=== PATIENT | female | born 1950 | race Caucasian/White ===

== ENCOUNTER → 2016-09-14 | Outpatient (CLI) | payer OTHER, MEDICAID ==
[~2016-09-14] MED LIST: /ACETCOD3T OR; /ADVA50050 INH; /TIOT18INH INH; ACET65TA PO; ADVAIR200 INHALATION; ALBU83IN INH; ALBUTEROL NEB; ALPRAZOLAM PO; AMIT10TA2 PO; AMIT50TA PO; AMIT50TA2 PO; AMITRIP50 PO; AMOXIL PO; ASP81 PO; ASPI81TA7 PO; ASPI81TA83 PO; ATIVAN PO; BACTRIMDS PO; BACTROCREA TOPICALLY; BISO2.5T PO; BISOPROLOL/HCTZ PO; CALCCHW12 PO; CELE-19 PO; CIPR500T4 OR; CLAR5CHW OR; CLAR5CHW PO; CLARITAN PO; COLA100C2 OR; DARVOCET-N PO; EQUATE; HCTZ PO; IBUP800T OR; IMDUR30 PO; ISOS30BRAN; K DUR PO; LEVA500T PO; LEVA750T; MAAL600C PO; MIRALAX PO; NITROSTAT SL; NYSTAT100 PO; OMEP20CA3 PO; PATA0.2S OU; PRED10TA PO; PRED20TAB PO; PROA1AER IN; PROM125TA PO; PROV90AE INH; RHINOCORT AQUA; RIFAMPIN3 PO; ROBA500T PO; SPIR1CAP INH; SYMB16INH INH; VERA27.5; VITACAP31 PO; XANA0.25 PO; XANA0.5T PO; XANAX0.25 PO; ZEBETA PO; [UNRECOGNIZED DRUG - CODE] PO; [UNRECOGNIZED DRUG - OTHER] INHALATION
== END ==
LOC: M SLEEP 19:35
PROVIDERS: ATTEND Nurse Practitioner Adult Health
DX: G47.30 Sleep apnea, unspecified (principal)

== ENCOUNTER → 2016-11-05 | Outpatient (CLI) | payer OTHER, MEDICAID ==
--- NOTE | 2016-11-08 10:38 | SLEEPCENT ---
DATE OF PROCEDURE: 11/05/2016 REQUESTING PROVIDER: Shakira Holcomb NP INTERPRETATION: Nocturnal polysomnography was performed for the titration of pressure therapy in this patient with obstructive sleep apnea syndrome, apnea-hypopnea index of 12.3. For testing, the patient was fit with a ResMed Quattro full face mask of small size, 4 cm of water pressure were applied to the circuit and the lights were extinguished. 7 hours and 58 minutes of data were reviewed. There were 396 minutes of sleep identified. Sleep latency was mildly prolonged at 34 minutes. Rapid eye movement (REM) latency was normal at 76 minutes. Sleep architecture was fairly good with three REM periods appreciated. Overall sleep efficiency was 84%. The patient's electrocardiogram (EKG) showed a sinus rhythm with an average heart rate of 68 beats per minute. Electroencephalogram (EEG) showed mild coarsening in background, otherwise normal waveforms for awake and sleep. Persistence of respiratory events were found fully palliated with a CPAP to a pressure of +9. Hypoventilatory oxygen desaturations occurred, prompting the addition of supplemental oxygen. Best sleep was seen on CPAP of 9 cm with 2 liters of oxygen bled through the system. The remaining measures of sleep physiology were normal. IMPRESSION: 1. Obstructive sleep apnea syndrome (G47.33). RECOMMENDATIONS: Nightly use of pressure therapy at 9 cm of water with 2 liters of oxygen bled through the CPAP circuit.
== END ==
LOC: M SLEEP 19:06
PROVIDERS: ATTEND Nurse Practitioner Adult Health
DX: G47.33 Obstructive sleep apnea (adult) (pediatric) (principal)

== ENCOUNTER 2017-03-10 18:36 | Emergency (ER) | payer OTHER, MEDICAID ==
[~2017-03-10] VITALS: Ht 160 cm; Wt 104.0 kg
[~2017-03-10 18:36] MED LIST changes: +ASPI1TAB15 PO; -ASPI81TA7 PO; -CELE-19 PO; +CELE1CAP4 PO; +LEVA1TAB2 PO; -LEVA500T PO; -PROA1AER IN; +PROAAER10 IN; +PROM12.55 PO; -PROM125TA PO
[2017-03-10 18:37] VITALS: BP 155/77
[2017-03-10] MEDS ORDERED: PRED20TA PO (18:47)
[2017-03-10] MEDS ORDERED: AUGM875T28 PO (18:47)
[2017-03-10] MEDS ORDERED: INCR1INH INH (18:51)
[2017-03-10] MEDS ORDERED: FURO20TA2 PO (18:51)
[2017-03-10] MEDS ORDERED: MONT10TA2 PO (18:51)
== END 2017-03-10 20:44 | disposition left against medical advice (07) ==
LOC: M ED 18:36
DX: R05 Cough (principal); Z53.21 Procedure and treatment not carried out due to patient leaving prior to being seen by health care provider

== ENCOUNTER → 2017-04-08 | Outpatient (REF) | payer OTHER, MEDICAID ==
[~2017-04-08] MED LIST changes: +AUGM875T28 PO; +CALC1CHW PO; +FLUTISP; +FURO20TA2 PO; +INCR1INH INH; +LEVOTAB10 PO; +METH1TAB40 PO; +MIRA33504 PO; +MONT10TA2 PO; +PRED10TA2 PO; +PRED20TA PO; +STOO100C PO; +SYMB16INH
[2017-04-08 08:53] LABS: BASO % 0.3 % (0.0-1.0); EOS % 0.2 % (0.0-3.0); LARGE UNSTAINED CELL # 0.1 K/mm3 (0.0-0.4); LARGE UNSTAINED CELL % 0.9 % (0.0-4.0); LYMPH # 1.1 K/mm3 (1.5-4.5); LYMPH % 10.6 % (24.0-44.0); MEAN CORPUSCULAR HEMOGLOBIN 29.4 pg (27.0-33.0); MEAN CORPUSCULAR HGB CONC 33.8 g/dl (32.0-36.5); MONO # 0.4 K/mm3 (0.0-0.8); MONO % 3.3 % (0.0-5.0); NEUTROPHILS # 8.9 K/mm3 (1.8-7.7); NEUTROPHILS % 84.7 % (36.0-66.0); PLATELET COUNT, AUTOMATED 255 k/mm3 (150-450); RED CELL DISTRIBUTION WIDTH 13.5 % (11.5-14.5); WHITE BLOOD COUNT 10.5 K/mm3 (4.0-10.0)
[2017-04-08 09:11] LABS: ANION GAP 11 MEQ/L (8-16); BLOOD UREA NITROGEN 11 MG/DL (7-18); CARBON DIOXIDE LEVEL 30 MEQ/L (21-32); CHLORIDE LEVEL 104 MEQ/L (98-107); CREATININE FOR GFR 0.85 MG/DL (0.55-1.02); GLOMERULAR FILTRATION RATE > 60.0 (>45); GLUCOSE, FASTING 132 MG/DL (80-110); POTASSIUM SERUM 3.6 MEQ/L (3.5-5.1); SODIUM LEVEL 145 MEQ/L (136-145)
== END ==
LOC: M LABDRAW1 08:00
PROVIDERS: ATTEND Family Medicine
DX: R04.2 Hemoptysis (principal)

== ENCOUNTER → 2017-05-21 | Outpatient (REF) | payer OTHER, MEDICAID ==
[2017-05-21 11:54] LABS: BASO % 0.5 % (0.0-1.0); EOS % 0.8 % (0.0-3.0); IMMATURE GRANULOCYTE % 0.3 % (0-0); LYMPH # 0.9 10^3/uL (1.5-4.5); LYMPH % 23.8 % (24.0-44.0); MEAN CORPUSCULAR HEMOGLOBIN 27.9 pg (27.0-33.0); MEAN CORPUSCULAR HGB CONC 32.3 g/dl (32.0-36.5); MEAN CORPUSCULAR VOLUME 86.6 fl (80.0-96.0); MONO # 0.7 10^3/uL (0.0-0.8); MONO % 18.2 % (0.0-5.0); NEUTROPHILS # 2.2 10^3/uL (1.8-7.7); NEUTROPHILS % 56.4 % (36.0-66.0); PLATELET COUNT, AUTOMATED 225 10^3/uL (150-450); RED CELL DISTRIBUTION WIDTH 15.6 % (11.5-14.5); WHITE BLOOD COUNT 3.9 10^3/uL (4.0-10.0)
[2017-05-21 12:15] LABS: ALBUMIN 3.2 GM/DL (3.2-5.2); ALBUMIN/GLOBULIN RATIO 0.94 (1.00-1.93); ALKALINE PHOSPHATASE 83 U/L (45-117); ALT/SGPT 51 U/L (12-78); ANION GAP 5 MEQ/L (8-16); AST/SGOT 38 U/L (15-37); BILIRUBIN,TOTAL 0.3 MG/DL (0.2-1.0); BLOOD UREA NITROGEN 14 MG/DL (7-18); CALCIUM LEVEL 8.7 MG/DL (8.8-10.2); CARBON DIOXIDE LEVEL 34 MEQ/L (21-32); CHLORIDE LEVEL 106 MEQ/L (98-107); GLOMERULAR FILTRATION RATE > 60.0 (>45); GLUCOSE, FASTING 97 MG/DL (80-110); POTASSIUM SERUM 3.8 MEQ/L (3.5-5.1); SODIUM LEVEL 145 MEQ/L (136-145); TOTAL PROTEIN 6.6 GM/DL (6.4-8.2)
== END ==
LOC: M LABDRAW1 10:08
PROVIDERS: ATTEND Family Medicine
DX: Z01.812 Encounter for preprocedural laboratory examination (principal)

== ENCOUNTER 2017-05-24 09:15 | Inpatient (IN) | payer MEDICAID, OTHER ==
[~2017-05-24] VITALS: Ht 157.5 cm; Wt 105.3 kg
[~2017-05-24 09:15] MED LIST changes: -CALC1CHW PO; -FLUTISP; -LEVOTAB10 PO; -METH1TAB40 PO; -MIRA33504 PO; -PRED10TA2 PO; -STOO100C PO; -SYMB16INH
[2017-05-24] MEDS ORDERED: methylPREDNISolone INJ 125 MG/2 ML VIAL (J2930) IV ONE (09:30)
[2017-05-24] MEDS ORDERED: FLUTISP (09:37)
[2017-05-24] MEDS ORDERED: LEVOTAB10 PO (09:37)
[2017-05-24] MEDS ORDERED: STOO100C PO (09:37)
[2017-05-24] MEDS ORDERED: SYMB16INH (09:37)
[2017-05-24] MEDS: IPRATROPIUM 0.5MG/ALBUTEROL 2.5MG INH SOL UD 3ML (DUONEB)(J7620) NEB SCH ×2 (09:38→09:53)
[2017-05-24 09:50] LABS: ABG BASE EXCESS 1.8 (-2.0-2.0); ABG HCO3 26.3 MEQ/L (22.0-26.0); ABG PARTIAL PRESSURE CO2 40.6 mmHg (35.0-45.0); ABG PARTIAL PRESSURE O2 94.7 mmHg (75.0-100.0); ABG STANDARD HCO3 26.1 MEQ/L (22.0-26.0); ABG TOTAL CO2 27.5 MEQ/L (23.0-31.0); ABG pH (ARTERIAL) 7.429 UNITS (7.350-7.450)
--- NOTE | 2017-05-24 09:53 | REP ---
Portable chest, 09:37 a.m., single AP view the patient semi upright: Comparison is a 03/12/2017. The lung marrero are clear. The cardiac size is normal. The kit, mediastinum, and bony thorax are unremarkable. Impression: Negative portable chest. There is no interval change Signed by Xavi Collins MD 05/24/2017 09:44 A
[2017-05-24 10:10] LABS: BASO % 0.2 % (0.0-1.0); EOS % 0.3 % (0.0-3.0); IMMATURE GRANULOCYTE % 0.3 % (0-0); LYMPH # 1.5 10^3/uL (1.5-4.5); LYMPH % 13.4 % (24.0-44.0); MEAN CORPUSCULAR HEMOGLOBIN 27.8 pg (27.0-33.0); MEAN CORPUSCULAR HGB CONC 32.4 g/dl (32.0-36.5); MEAN CORPUSCULAR VOLUME 85.9 fl (80.0-96.0); MONO # 0.8 10^3/uL (0.0-0.8); NEUTROPHILS # 8.6 10^3/uL (1.8-7.7); NEUTROPHILS % 78.8 % (36.0-66.0); PLATELET COUNT, AUTOMATED 188 10^3/uL (150-450); RED CELL DISTRIBUTION WIDTH 15.1 % (11.5-14.5); WHITE BLOOD COUNT 10.9 10^3/uL (4.0-10.0)
[2017-05-24 10:23] LABS: INR 0.92
[2017-05-24 10:37] LABS: ANION GAP 7 MEQ/L (8-16); BLOOD UREA NITROGEN 13 MG/DL (7-18); CARBON DIOXIDE LEVEL 30 MEQ/L (21-32); CHLORIDE LEVEL 106 MEQ/L (98-107); CREATININE FOR GFR 0.94 MG/DL (0.55-1.02); GLOMERULAR FILTRATION RATE > 60.0 (>45); GLUCOSE, FASTING 141 MG/DL (80-110); POTASSIUM SERUM 3.5 MEQ/L (3.5-5.1); SODIUM LEVEL 143 MEQ/L (136-145)
[2017-05-24 10:43] LABS: ALBUMIN 2.8 GM/DL (3.2-5.2); ALBUMIN/GLOBULIN RATIO 0.74 (1.00-1.93); ALKALINE PHOSPHATASE 77 U/L (45-117); ALT/SGPT 63 U/L (12-78); AST/SGOT 47 U/L (15-37); BILIRUBIN,DIRECT < 0.1 MG/DL (0.0-0.2); BILIRUBIN,TOTAL 0.3 MG/DL (0.2-1.0); TOTAL PROTEIN 6.6 GM/DL (6.4-8.2)
--- NOTE | 2017-05-24 11:32 | ECGEPIP ---
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
[2017-05-24] MEDS ORDERED: MIRA33504 PO (13:05)
[2017-05-24] MEDS ORDERED: CALC1CHW PO (13:05)
[2017-05-24] MEDS ORDERED: METH1TAB40 PO (13:05)
--- NOTE | 2017-05-24 13:11 | HPEPDOC ---
[facility] Medical History & Physical Date of Admission May 24, 2017 History and Physical PRIMARY CARE PROVIDER: Dr. Nelson ATTENDING: Dr. Lexi Vallejo CHIEF COMPLAINT: Shortness of breath/cough HISTORY OF PRESENT ILLNESS: This is a 66-year-old female past history of COPD, GERD, arthritis, AILIN on CPAP , ? Right-sided heart failure who presents complaining of shortness of breath and cough over the past 2 weeks. Patient states she's been having a nonproductive cough with subjective fevers and chills this been progressively worsening over the past 2 weeks. Denies any sick contacts. No nausea/vomiting. No chest pain. No palpitations. Patient states she's currently being worked up by Dr. Zhang for an inflamed vocal cord in the setting of a biopsy done next week. PAST MEDICAL HISTORY: As per HPI PAST SURGICAL HISTORY: Hernia repair, hysterectomy, colectomy with reversal for perforated diverticulitis SOCIAL HISTORY: Smokes half pack per day 30 years, not interested in quitting at this time however has tried to use an electric cigarette does not want a nicotine patch.. No alcohol or illicit drug use. FAMILY HISTORY: ALLERGIES: Please see below. REVIEW OF SYSTEMS: HEENT: Denies sore throat/headache CARDIOVASCULAR: Denies chest pain/palpitations RESPIRATORY: Positive shortness of breath/cough GASTROINTESTINAL: denies nausea/vomiting GENITOURINARY: Denies dysuria/urinary urgency. MUSCULOSKELETAL: Denies myalgias/arthralgias NEUROLOGICAL: Denies any focal weakness HOME MEDICATIONS: Please see below. PHYSICAL EXAMINATION: Vitals: (see below) General: No acute distress, laying comfortably in bed. HEENT: Moist mucous membranes. Minimal pharyngeal erythema. No exudates. Neck: No JVD or lymphadenopathy Cardiac: RRR, No murmurs Pulm: Mild expiratory wheezing with prolonged expiratory phase, no rhonchi. No crackles. No stridor or use of accessory muscles. Abd: NT/ND + BS Ext: No edema or cyanosis LABORATORY DATA: See below. IMAGING: Chest x-ray on 05/24/17 Impression: Negative portable chest. There is no interval change MICROBIOLOGY: Please see below. ASSESSMENT/PLAN: 1. Acute COPD exacerbation- patient received nebs/steroids in the ED with improvements of her symptoms however still dyspneic. Has been having productive cough over the past 2 weeks. Will start patient on doxycycline. Continue nebs, started on Solu-Medrol. Blood culture/sputum culture. 2. Lactic acidosis- likely secondary to increased work of breathing. We'll repeat lactic acid level. 3. History of vocal cord inflammation- this pending the biopsy by next week. No stridor at this time. 4. GERD continue PPI 5. AILIN on CPAP 6. History of arthritis DVT prophylaxis- enoxaparin She will be followed by Lexi Vallejo during 05/25/17 at 7 AM. Vital Signs Vital Signs Date Time Temp Pulse Resp B/P (MAP) Pulse Ox O2 Delivery O2 Flow Rate FiO2 05/24/17 10:45 108 91 05/24/17 10:43 141/74 (96) 05/24/17 09:16 98.9 20 Room Air Laboratory Data Labs 24H Laboratory Tests 2 05/24/17 09:35: Blood Gas Bicarbonate Standard 26.1H, Arterial Blood pH 7.429, Arterial Blood Partial Pressure CO2 40.6, Arterial Blood Partial Pressure O2 94.7, Arterial Blood Total CO2 27.5, Arterial Blood HCO3 26.3H, Arterial Blood Base Excess 1.8 , Arterial Blood Oxygen Saturation 97.6 05/24/17 09:53: Immature Granulocyte % (Auto) 0.3H, White Blood Count 10.9H, Red Blood Count 5.53H, Hemoglobin 15.4, Hematocrit 47.5H, Mean Corpuscular Volume 85.9, Mean Corpuscular Hemoglobin 27.8, Mean Corpuscular Hemoglobin Concent 32.4, Red Cell Distribution Width 15.1H, Platelet Count 188, Neutrophils (%) (Auto) 78.8H, Lymphocytes (%) (Auto) 13.4L, Monocytes (%) (Auto) 7.0H, Eosinophils (%) (Auto) 0.3, Basophils (%) (Auto) 0.2, Neutrophils # (Auto) 8.6H, Lymphocytes # (Auto) 1.5, Monocytes # (Auto) 0.8, Eosinophils # (Auto) 0.0, Basophils # (Auto) 0.0, Immature Granulocyte # (Auto) 0.0, Nucleated Red Blood Cells % (auto) 0.0, Prothrombin Time 12.4, Prothromb Time International Ratio 0.92, Anion Gap 7L, Glomerular Filtration Rate > 60.0, Lactic Acid Level 2.3*H, Blood Urea Nitrogen 13, Creatinine 0.94, Sodium Level 143, Potassium Level 3.5, Chloride Level 106, Carbon Dioxide Level 30, Calcium Level 8.0L, Total Creatine Kinase 169, Aspartate Amino Transf (AST/SGOT) 47H, Alanine Aminotransferase (ALT/SGPT) 63, Alkaline Phosphatase 77, Total Bilirubin 0.3, Direct Bilirubin < 0.1, Creatine Kinase MB 1.3, Creatine Kinase MB Relative Index 0.76, Troponin I < 0.02, NT-Pro -B-Type Natriuretic Peptide 29, Total Protein 6.6, Albumin 2.8L, Albumin/ Globulin Ratio 0.74L, Thyroid Stimulating Hormone (TSH) 2.670 CBC/BMP Laboratory Tests 05/24/17 09:53 Red Blood Count 5.53 H, Mean Corpuscular Volume 85.9, Mean Corpuscular Hemoglobin 27.8, Mean Corpuscular Hemoglobin Concent 32.4, Red Cell Distribution Width 15.1 H, Neutrophils (%) (Auto) 78.8 H, Lymphocytes (%) (Auto ) 13.4 L, Monocytes (%) (Auto) 7.0 H, Eosinophils (%) (Auto) 0.3, Basophils (%) (Auto) 0.2, Neutrophils # (Auto) 8.6 H, Lymphocytes # (Auto) 1.5, Monocytes # ( Auto) 0.8, Eosinophils # (Auto) 0.0, Basophils # (Auto) 0.0, Calcium Level 8.0 L , Total Creatine Kinase 169 Microbiology Microbiology 05/24/17 Blood Culture, Received Pending 05/24/17 Blood Culture, Received Pending 05/24/17 Influenza Virus Type A Antigen - Final, Complete 05/24/17 Influenza Virus Type B Antigen - Final, Complete Home Medications Scheduled (Bisoprolol Fumarate/[place] 2.5-6.25 mg) 1 Tab Tab, 1 TAB PO DAILY (Incruse Ellipta) 62.5 Mcg/Inh Inh, 1 PUFF INH DAILY (Calcium Chews 600-400 mg-Unit) 1 Chw Chw, 3 CHW PO QHS Amitriptyline HCl (Amitriptyline HCl) 50 Mg Tab, 50 MG PO QHS Aspirin (Aspirin) 81 Mg Tab, 81 MG PO DAILY Budesonide/Formoterol (Symbicort 160-4.5 Mcg/Act) 60 Puff/Inhaler Aers, 1 PUFF INH BID Celecoxib (Celebrex) 200 Mg Cap, 200 MG PO QHS Docusate Sodium (Stool Softener) 100 Mg Cap, 200 MG PO DAILY Fluticasone Propionate (Fluticasone Propionate) 50 Mcg/Act Spr, 2 SPRAY NA QHS Furosemide (Furosemide) 20 Mg Tab, 20 MG PO DAILY Levocetirizine Hydrochloride (Levocetirizine Dihydrochl) 5 Mg Tab, 5 MG PO QHS Montelukast Sodium (Montelukast Sodium) 10 Mg Tab, 10 MG PO QHS Omeprazole (Omeprazole) 20 Mg Cap, 20 MG PO DAILY Scheduled PRN (Pataday) 0.2 % Leigha, 0.2 % OU BID PRN for ALLERGIES Albuterol Sulfate (Proair Hfa) 108 Mcg/Act Aer, 108 MCG IN PRN PRN for RESPIRATORY DISTRESS Albuterol Sulfate (Albuterol Sulfate) 2.5 Mg/3 Ml Nebu, 2.5 MG INH Q4H PRN for SOB/WHEEZING Alprazolam (Xanax) 0.5 Mg Tab, 0.5 MG PO BID PRN for ANXIETY Methocarbamol (Methocarbamol) 500 Mg Tab, 500 MG PO BID PRN for MUSCLE SPASMS Polyethylene Glycol (Miralax) 1 Pow Pow, 17 GM PO DAILY PRN for CONSTIPATION Allergies Coded Allergies: Clavulanic Acid (Verified Allergy, Intermediate, SWELLING, 11/06/12) Quinolones (Verified Allergy, Intermediate, HIVES, 11/06/12) Rifampin (Verified Allergy, Intermediate, SWELLING, 11/06/12) Contrast Media (Verified Allergy, Unknown, 10/22/08) Mometasone (Verified Allergy, Unknown, 11/06/12) Hydrocodone (Verified Adverse Reaction, Intermediate, UPSET STOMACH, ) Lansoprazole (Verified Adverse Reaction, Intermediate, ARMS TINGLE, 11/06/12 ) Meloxicam (Verified Adverse Reaction, Intermediate, RENAL FAILURE, 11/06/12) Temazepam (Verified Adverse Reaction, Intermediate, CONFUSION, 11/06/12) Tramadol (Verified Adverse Reaction, Intermediate, CLAMMY, 11/06/12) Venlafaxine (Verified Adverse Reaction, Intermediate, SHAKEY, 11/06/12) Ipratropium (Unverified Adverse Reaction, Unknown, HURTS LUNGS, 05/24/17) SWEETIE MITCHELL MD May 24, 2017 13:11
[2017-05-24] MEDS ORDERED: DOXYCYCLINE HYCLATE 100 MG in D5W MINI-BAG PLUS 100 ML IV ONE (13:30)
[2017-05-24] MEDS ORDERED: MIRALAX *UNIT DOSE* 17GM PACKET PO PRN (13:45)
[2017-05-24] MEDS: ALBUTEROL SULFATE 2.5 MG/0.5 ML INH NEB SOLN NEB SCH ×2 (14:00→19:19)
[2017-05-24 14:45] VITALS: BP 175/82
--- NOTE | 2017-05-24 14:47 | REP ---
Bilateral lower extremity deep vein duplex ultrasound: The deep veins demonstrate normal compression, normal Doppler color flow and normal Doppler waveforms with respiration augmentation at multiple levels from the popliteal veins to the common femoral veins bilaterally. Impression: There is no deep vein thrombus in the right lower extremity or left lower extremity. Signed by Xavi Collins MD 05/24/2017 12:24 P
[2017-05-24] MEDS: DOCUSATE SODIUM 100 MG CAP PO SCH (15:47)
[2017-05-24] MEDS: DOXYCYCLINE HYCLATE 100 MG in D5W MINI-BAG PLUS 100 ML IV SCH (16:24)
[2017-05-24 17:00] VITALS: BP 160/78
[2017-05-24] MEDS: methylPREDNISolone INJ 125 MG/2 ML VIAL (J2930) IV SCH (17:36)
[2017-05-24 20:00] VITALS: BP 134/67
[2017-05-24] MEDS: AMITRIPTYLINE 50 MG TAB PO SCH (21:28)
[2017-05-24] MEDS: CelecoXIB (CeleBREX) 100 MG CAP PO SCH (21:28)
[2017-05-24] MEDS: MONTELUKAST 10 MG TAB PO SCH (21:29)
[2017-05-24] MEDS: FLUTICASONE PROP 0.05% NASAL SPRAY 16 GM (FLONASE) SCH (21:29)
[2017-05-25] VITALS (8 sets, daily range): BP systolic 116–150; BP diastolic 59–74; O2SAT 92
[2017-05-25] MEDS: ALPRAZolam 0.5 MG TAB PO PRN ×2 (01:07→22:39)
[2017-05-25] MEDS: methylPREDNISolone INJ 125 MG/2 ML VIAL (J2930) IV SCH ×2 (01:07→09:02)
[2017-05-25] MEDS: ALBUTEROL SULFATE 2.5 MG/0.5 ML INH NEB SOLN NEB SCH ×4 (01:11→19:19)
[2017-05-25] MEDS: DOXYCYCLINE HYCLATE 100 MG in D5W MINI-BAG PLUS 100 ML IV SCH ×2 (04:24→15:10)
[2017-05-25 05:20] LABS: BASO % 0.2 % (0.0-1.0); IMMATURE GRANULOCYTE % 0.3 % (0-0); LYMPH # 0.9 10^3/uL (1.5-4.5); LYMPH % 5.1 % (24.0-44.0); MEAN CORPUSCULAR HEMOGLOBIN 27.2 pg (27.0-33.0); MEAN CORPUSCULAR HGB CONC 32.1 g/dl (32.0-36.5); MEAN CORPUSCULAR VOLUME 84.9 fl (80.0-96.0); MONO # 0.5 10^3/uL (0.0-0.8); NEUTROPHILS # 15.8 10^3/uL (1.8-7.7); NEUTROPHILS % 91.4 % (36.0-66.0); PLATELET COUNT, AUTOMATED 210 10^3/uL (150-450); RED CELL DISTRIBUTION WIDTH 15.1 % (11.5-14.5); WHITE BLOOD COUNT 17.2 10^3/uL (4.0-10.0)
[2017-05-25 05:39] LABS: CALCIUM LEVEL 8.9 MG/DL (8.8-10.2); CREATININE FOR GFR 1.01 MG/DL (0.55-1.02); MAGNESIUM LEVEL 2.1 MG/DL (1.8-2.4); POTASSIUM SERUM 3.3 MEQ/L (3.5-5.1)
[2017-05-25] MEDS ORDERED: POTASSIUM CHLORIDE 10 MEQ SR TABLET PO ONE (07:15)
[2017-05-25] MEDS: OMEPRAZOLE 20 MG CAP PO SCH (07:58)
[2017-05-25] MEDS: ASPIRIN 81 MG ENTERIC TAB PO SCH (07:58)
[2017-05-25] MEDS: DOCUSATE SODIUM 100 MG CAP PO SCH (07:59)
[2017-05-25] MEDS: TIOTROPIUM INHALER/CAPSULE (SPIRIVA) INH SCH (08:17)
[2017-05-25] MEDS: BISOPROLOL FUM 2.5 MG PER 1/2TAB PO SCH (09:01)
--- NOTE | 2017-05-25 15:41 | IPNPDOC ---
Text Note Date of Service The patient was seen on 05/25/17. NOTE Subjective: Patient is a 66 year old female with a PMHx of COPD, AILIN on CPAP, R sided heart failure, Arthritis, GERD, who presented to the ER with complaints of SOB and cough over 2 weeks duration. She noted a non-productive cough and subjective fevers and chills. She was admitted for acute COPD exacerbation. Patient was seen and examined at the bedside. She notes some improvement in her breathing, but not significant. Objective: Vitals (See below) General: Lying in bed, no acute distress, comfortable, AAOx3 HEENT: NC, AT CVS: RRR, +S1S2 Lungs: Fair air entry b/l, mild expiratory wheezing Abdomen: Soft, ND, NT Extremities: - Edema, - Calf tenderness Assessment and plan: Dyspnea - likely 2/2 Acute COPD exacerbation - Presented with SOB, productive cough, fever and chills - Physical with expiratory wheezing - Labs with minimal leukocytosis on admission; ABG was within normal limits - Blood cultures - negative at 24 hours, Resp panel and Influenza negative - CXR 05/24: lungs clear, - c/w Solumedrol; will reduce dose - c/w Doxycycline (Day #2) - c/w DuoNeb, Singulair, Spiriva Mild lactic acidosis - likely 2/2 work of breathing Hx of Vocal cord inflammation - No evidence of airway compromise - Pending biopsy by Dr. Zhang next week AILIN on CPAP - allow home CPAP use Arthritis - c/w Celecoxib and Tylenol PRN Depression / Anxiety - c/w Amitriptyline and Alprazolam HTN - c/w Bisoprolol GERD - c/w omeprazole DVT prophylaxis - c/w Lovenox VS,Fishbone, I+O VS, Fishbone, I+O Laboratory Tests 05/25/17 04:38 Red Blood Count 5.69 H, Mean Corpuscular Volume 84.9, Mean Corpuscular Hemoglobin 27.2, Mean Corpuscular Hemoglobin Concent 32.1, Red Cell Distribution Width 15.1 H, Neutrophils (%) (Auto) 91.4 H, Lymphocytes (%) (Auto ) 5.1 L, Monocytes (%) (Auto) 3.0, Eosinophils (%) (Auto) 0.0, Basophils (%) ( Auto) 0.2, Neutrophils # (Auto) 15.8 H, Lymphocytes # (Auto) 0.9 L, Monocytes # (Auto) 0.5, Eosinophils # (Auto) 0.0, Basophils # (Auto) 0.0, Calcium Level 8.9 Vital Signs Date Time Temp Pulse Resp B/P (MAP) Pulse Ox O2 Delivery O2 Flow Rate FiO2 05/25/17 12:12 98.3 90 19 147/74 (98) 91 Nasal Cannula 2.0 I&O- Last 24 Hours up to 6 AM 05/26/17 06:00 Intake Total 360 ml Output Total 0 ml Balance 360 ml KATHYA LIEBERMAN MD May 25, 2017 15:41
[2017-05-25] MEDS: methylPREDNISolone INJ 40 MG/1 ML VIAL (J2920) IV SCH (17:03)
[2017-05-25] MEDS: CelecoXIB (CeleBREX) 100 MG CAP PO SCH (20:01)
[2017-05-25] MEDS: FLUTICASONE PROP 0.05% NASAL SPRAY 16 GM (FLONASE) SCH (20:01)
[2017-05-25] MEDS: AMITRIPTYLINE 50 MG TAB PO SCH (20:01)
[2017-05-25] MEDS: MONTELUKAST 10 MG TAB PO SCH (20:01)
[2017-05-26] VITALS (7 sets, daily range): BP systolic 129–156; BP diastolic 60–86
[2017-05-26] MEDS: ALBUTEROL SULFATE 2.5 MG/0.5 ML INH NEB SOLN NEB SCH ×4 (01:18→20:22)
[2017-05-26] MEDS: methylPREDNISolone INJ 40 MG/1 ML VIAL (J2920) IV SCH ×3 (03:24→18:41)
[2017-05-26] MEDS: DOXYCYCLINE HYCLATE 100 MG in D5W MINI-BAG PLUS 100 ML IV SCH ×2 (03:25→15:55)
[2017-05-26 05:51] LABS: BASO % 0.1 % (0.0-1.0); IMMATURE GRANULOCYTE % 0.7 % (0-0); LYMPH % 4.3 % (24.0-44.0); MEAN CORPUSCULAR HEMOGLOBIN 27.9 pg (27.0-33.0); MEAN CORPUSCULAR HGB CONC 32.5 g/dl (32.0-36.5); MEAN CORPUSCULAR VOLUME 85.9 fl (80.0-96.0); MONO # 1.1 10^3/uL (0.0-0.8); MONO % 4.4 % (0.0-5.0); NEUTROPHILS # 21.8 10^3/uL (1.8-7.7); NEUTROPHILS % 90.5 % (36.0-66.0); PLATELET COUNT, AUTOMATED 220 10^3/uL (150-450); RED CELL DISTRIBUTION WIDTH 15.4 % (11.5-14.5); WHITE BLOOD COUNT 24.1 10^3/uL (4.0-10.0)
[2017-05-26] MEDS: SLF 3 ML SYR IV SCH ×3 (06:00→20:31)
[2017-05-26 06:14] LABS: ANION GAP 6 MEQ/L (8-16); BLOOD UREA NITROGEN 29 MG/DL (7-18); CALCIUM LEVEL 8.9 MG/DL (8.8-10.2); CARBON DIOXIDE LEVEL 32 MEQ/L (21-32); CHLORIDE LEVEL 106 MEQ/L (98-107); CREATININE FOR GFR 0.89 MG/DL (0.55-1.02); GLOMERULAR FILTRATION RATE > 60.0 (>45); GLUCOSE, FASTING 169 MG/DL (80-110); MAGNESIUM LEVEL 2.3 MG/DL (1.8-2.4); POTASSIUM SERUM 3.8 MEQ/L (3.5-5.1); SODIUM LEVEL 144 MEQ/L (136-145)
[2017-05-26] MEDS: TIOTROPIUM INHALER/CAPSULE (SPIRIVA) INH SCH (07:11)
[2017-05-26] MEDS: DOCUSATE SODIUM 100 MG CAP PO SCH (09:00)
[2017-05-26] MEDS: OMEPRAZOLE 20 MG CAP PO SCH (10:18)
[2017-05-26] MEDS: ASPIRIN 81 MG ENTERIC TAB PO SCH (10:19)
[2017-05-26] MEDS: SLF 3 ML SYR IV PRN ×2 (10:20→18:41)
[2017-05-26] MEDS: BISOPROLOL FUM 2.5 MG PER 1/2TAB PO SCH (10:23)
--- NOTE | 2017-05-26 13:50 | IPNPDOC ---
Text Note Date of Service The patient was seen on 05/26/17. NOTE Subjective: Patient is a 66 year old female with a PMHx of COPD, AILIN on CPAP, R sided heart failure, Arthritis, GERD, who presented to the ER with complaints of SOB and cough over 2 weeks duration. She noted a non-productive cough and subjective fevers and chills. She was admitted for acute COPD exacerbation. Patient was seen and examined at the bedside. She notes that she has been wheezing and coughing this morning Objective: Vitals (See below) General: Lying in bed, no acute distress, comfortable, AAOx3 HEENT: NC, AT CVS: RRR, +S1S2 Lungs: Fair air entry b/l, mild expiratory wheezing Abdomen: Soft, ND, NT Extremities: - Edema, - Calf tenderness Assessment and plan: Dyspnea - likely 2/2 Acute COPD exacerbation - Presented with SOB, productive cough, fever and chills - Physical with expiratory wheezing that is still present - Labs with minimal leukocytosis on admission; ABG was within normal limits - Resp panel and Influenza negative - CXR 05/24: lungs clear, - c/w Solumedrol; will keep on this current does until breathing improves and taper at that point - c/w Doxycycline (Day #3) - c/w DuoNeb, Singulair, Spiriva Positive blood cultures - 1 of 2 bottles positive for Gram positive cocci in clusters - Appears to be possibly contamination - Clinically remains afebrile - Will repeat blood cultures - Will hold off on antibiotics Mild lactic acidosis - likely 2/2 work of breathing Leukocytosis - likely 2/2 corticosteroid use - Remains afebrile - Will continue to monitor Hx of Vocal cord inflammation - No evidence of airway compromise - Pending biopsy by Dr. Zhang next week AILIN on CPAP - allow home CPAP use Arthritis - c/w Celecoxib and Tylenol PRN Depression / Anxiety - c/w Amitriptyline and Alprazolam HTN - c/w Bisoprolol GERD - c/w omeprazole DVT prophylaxis - c/w Lovenox VS,Fishbone, I+O VS, Fishbone, I+O Laboratory Tests 05/26/17 05:35 Red Blood Count 5.23, Mean Corpuscular Volume 85.9, Mean Corpuscular Hemoglobin 27.9, Mean Corpuscular Hemoglobin Concent 32.5, Red Cell Distribution Width 15.4 H, Neutrophils (%) (Auto) 90.5 H, Lymphocytes (%) (Auto) 4.3 L, Monocytes ( %) (Auto) 4.4, Eosinophils (%) (Auto) 0.0, Basophils (%) (Auto) 0.1, Neutrophils # (Auto) 21.8 H, Lymphocytes # (Auto) 1.0 L, Monocytes # (Auto) 1.1 H, Eosinophils # (Auto) 0.0, Basophils # (Auto) 0.0, Calcium Level 8.9 Vital Signs Date Time Temp Pulse Resp B/P (MAP) Pulse Ox O2 Delivery O2 Flow Rate FiO2 05/26/17 12:00 98.1 95 20 134/67 (89) 93 Nasal Cannula 2.0 I&O- Last 24 Hours up to 6 AM 05/27/17 06:00 Intake Total 460 ml Output Total 300 ml Balance 160 ml KATHYA LIEBERMAN MD May 26, 2017 13:45
[2017-05-26] MEDS: CelecoXIB (CeleBREX) 100 MG CAP PO SCH (20:30)
[2017-05-26] MEDS: MONTELUKAST 10 MG TAB PO SCH (20:30)
[2017-05-26] MEDS: AMITRIPTYLINE 50 MG TAB PO SCH (20:30)
[2017-05-26] MEDS: FLUTICASONE PROP 0.05% NASAL SPRAY 16 GM (FLONASE) SCH (20:31)
[2017-05-26] MEDS: ALPRAZolam 0.5 MG TAB PO PRN (22:43)
[2017-05-27] MEDS: ALBUTEROL SULFATE 2.5 MG/0.5 ML INH NEB SOLN NEB SCH ×4 (01:59→19:52)
[2017-05-27] MEDS: methylPREDNISolone INJ 40 MG/1 ML VIAL (J2920) IV SCH ×2 (02:24→13:57)
[2017-05-27] MEDS: DOXYCYCLINE HYCLATE 100 MG in D5W MINI-BAG PLUS 100 ML IV SCH ×2 (03:14→15:48)
[2017-05-27 03:15] VITALS: BP 128/70
[2017-05-27] MEDS: SLF 3 ML SYR IV SCH ×3 (05:05→21:00)
[2017-05-27 05:43] LABS: BASO % 0.2 % (0.0-1.0); IMMATURE GRANULOCYTE % 0.6 % (0-0); LYMPH # 1.2 10^3/uL (1.5-4.5); LYMPH % 5.9 % (24.0-44.0); MEAN CORPUSCULAR HEMOGLOBIN 27.9 pg (27.0-33.0); MEAN CORPUSCULAR HGB CONC 32.3 g/dl (32.0-36.5); MEAN CORPUSCULAR VOLUME 86.3 fl (80.0-96.0); NEUTROPHILS # 17.6 10^3/uL (1.8-7.7); NEUTROPHILS % 88.3 % (36.0-66.0); PLATELET COUNT, AUTOMATED 213 10^3/uL (150-450); RED CELL DISTRIBUTION WIDTH 15.6 % (11.5-14.5)
[2017-05-27 06:02] LABS: ANION GAP 3 MEQ/L (8-16); BLOOD UREA NITROGEN 30 MG/DL (7-18); CALCIUM LEVEL 8.7 MG/DL (8.8-10.2); CARBON DIOXIDE LEVEL 33 MEQ/L (21-32); CHLORIDE LEVEL 108 MEQ/L (98-107); CREATININE FOR GFR 0.78 MG/DL (0.55-1.02); GLOMERULAR FILTRATION RATE > 60.0 (>45); GLUCOSE, FASTING 131 MG/DL (80-110); MAGNESIUM LEVEL 2.3 MG/DL (1.8-2.4); POTASSIUM SERUM 3.7 MEQ/L (3.5-5.1); SODIUM LEVEL 144 MEQ/L (136-145)
[2017-05-27] MEDS: TIOTROPIUM INHALER/CAPSULE (SPIRIVA) INH SCH (07:03)
[2017-05-27 08:00] VITALS: BP 126/79
[2017-05-27] MEDS: DOCUSATE SODIUM 100 MG CAP PO SCH (09:00)
[2017-05-27] MEDS: BISOPROLOL FUM 2.5 MG PER 1/2TAB PO SCH (09:41)
[2017-05-27] MEDS: OMEPRAZOLE 20 MG CAP PO SCH (09:41)
[2017-05-27] MEDS: ASPIRIN 81 MG ENTERIC TAB PO SCH (09:42)
[2017-05-27 11:55] VITALS: BP 128/98
--- NOTE | 2017-05-27 14:53 | IPNPDOC ---
Text Note Date of Service The patient was seen on 05/27/17. NOTE Subjective: Patient is a 66 year old female with a PMHx of COPD, AILIN on CPAP, R sided heart failure, Arthritis, GERD, who presented to the ER with complaints of SOB and cough over 2 weeks duration. She noted a non-productive cough and subjective fevers and chills. She was admitted for acute COPD exacerbation. Patient was seen and examined at the bedside. She notes improvement in her breathing, still has a mild cough. Objective: Vitals (See below) General: Lying in bed, no acute distress, comfortable, AAOx3 HEENT: NC, AT CVS: RRR, +S1S2 Lungs: Fair air entry b/l, mild expiratory wheezing Abdomen: Soft, ND, NT Extremities: - Edema, - Calf tenderness Assessment and plan: Dyspnea - likely 2/2 Acute COPD exacerbation - Presented with SOB, productive cough, fever and chills - Physical with mild expiratory wheezing - Labs with minimal leukocytosis on admission; ABG was within normal limits - Resp panel and Influenza negative - CXR 05/24: lungs clear, - c/w Solumedrol; will continue to taper down - c/w Doxycycline (Day #4) - c/w DuoNeb, Singulair, Spiriva Positive blood cultures - Appears to be possibly contamination - Clinically remains afebrile - 1 of 2 bottles positive for Gram positive cocci in clusters; still not identified - Repeat blood cultures remain negative - Will hold off on antibiotics Mild lactic acidosis - likely 2/2 work of breathing Leukocytosis - likely 2/2 corticosteroid use - Remains afebrile - Will continue to monitor Hx of Vocal cord inflammation - No evidence of airway compromise - Pending biopsy by Dr. Zhang next week AILIN on CPAP - allow home CPAP use Arthritis - c/w Celecoxib and Tylenol PRN Depression / Anxiety - c/w Amitriptyline and Alprazolam HTN - c/w Bisoprolol GERD - c/w omeprazole DVT prophylaxis - c/w Lovenox VS,Fishbone, I+O VS, Fishbone, I+O Laboratory Tests 05/27/17 05:32 Red Blood Count 5.27, Mean Corpuscular Volume 86.3, Mean Corpuscular Hemoglobin 27.9, Mean Corpuscular Hemoglobin Concent 32.3, Red Cell Distribution Width 15.6 H, Neutrophils (%) (Auto) 88.3 H, Lymphocytes (%) (Auto) 5.9 L, Monocytes ( %) (Auto) 5.0, Eosinophils (%) (Auto) 0.0, Basophils (%) (Auto) 0.2, Neutrophils # (Auto) 17.6 H, Lymphocytes # (Auto) 1.2 L, Monocytes # (Auto) 1.0 H, Eosinophils # (Auto) 0.0, Basophils # (Auto) 0.0, Calcium Level 8.7 L Vital Signs Date Time Temp Pulse Resp B/P (MAP) Pulse Ox O2 Delivery O2 Flow Rate FiO2 05/27/17 11:55 97.6 81 22 128/98 (108) 95 Nasal Cannula 2.0 I&O- Last 24 Hours up to 6 AM 05/28/17 06:00 Intake Total 560 ml Balance 560 ml KATHYA LIEBERMAN MD May 27, 2017 14:53
[2017-05-27 16:06] VITALS: BP 151/77
[2017-05-27] MEDS ORDERED: MAALOX 30 ML SUSP *UDC PO PRN (16:15)
[2017-05-27 20:00] VITALS: BP 152/80
[2017-05-27] MEDS: FLUTICASONE PROP 0.05% NASAL SPRAY 16 GM (FLONASE) SCH (20:58)
[2017-05-27] MEDS: MONTELUKAST 10 MG TAB PO SCH (20:58)
[2017-05-27] MEDS: CelecoXIB (CeleBREX) 100 MG CAP PO SCH (20:58)
[2017-05-27] MEDS: AMITRIPTYLINE 50 MG TAB PO SCH (20:58)
[2017-05-27] MEDS: ALPRAZolam 0.5 MG TAB PO PRN (20:58)
[2017-05-28] VITALS: BP 100/51
[2017-05-28] MEDS: ALBUTEROL SULFATE 2.5 MG/0.5 ML INH NEB SOLN NEB SCH ×4 (00:41→20:17)
[2017-05-28] MEDS: methylPREDNISolone INJ 40 MG/1 ML VIAL (J2920) IV SCH ×2 (02:01→15:33)
[2017-05-28 04:00] VITALS: BP 119/62
[2017-05-28] MEDS: DOXYCYCLINE HYCLATE 100 MG in D5W MINI-BAG PLUS 100 ML IV SCH ×2 (04:15→15:33)
[2017-05-28] MEDS: SLF 3 ML SYR IV SCH ×3 (05:33→21:04)
[2017-05-28 05:43] LABS: BASO % 0.2 % (0.0-1.0); LYMPH # 1.1 10^3/uL (1.5-4.5); LYMPH % 8.5 % (24.0-44.0); MEAN CORPUSCULAR HEMOGLOBIN 27.5 pg (27.0-33.0); MONO # 0.7 10^3/uL (0.0-0.8); MONO % 5.5 % (0.0-5.0); NEUTROPHILS # 11.2 10^3/uL (1.8-7.7); NEUTROPHILS % 84.8 % (36.0-66.0); PLATELET COUNT, AUTOMATED 204 10^3/uL (150-450); RED CELL DISTRIBUTION WIDTH 15.3 % (11.5-14.5); WHITE BLOOD COUNT 13.2 10^3/uL (4.0-10.0)
[2017-05-28 05:55] LABS: ANION GAP 5 MEQ/L (8-16); BLOOD UREA NITROGEN 30 MG/DL (7-18); CALCIUM LEVEL 8.5 MG/DL (8.8-10.2); CARBON DIOXIDE LEVEL 32 MEQ/L (21-32); CHLORIDE LEVEL 109 MEQ/L (98-107); CREATININE FOR GFR 0.77 MG/DL (0.55-1.02); GLOMERULAR FILTRATION RATE > 60.0 (>45); GLUCOSE, FASTING 140 MG/DL (80-110); MAGNESIUM LEVEL 2.5 MG/DL (1.8-2.4); POTASSIUM SERUM 3.9 MEQ/L (3.5-5.1); SODIUM LEVEL 146 MEQ/L (136-145)
[2017-05-28] MEDS: TIOTROPIUM INHALER/CAPSULE (SPIRIVA) INH SCH (07:13)
[2017-05-28 08:00] VITALS: BP 143/73
[2017-05-28] MEDS: DOCUSATE SODIUM 100 MG CAP PO SCH (09:00)
[2017-05-28] MEDS: OMEPRAZOLE 20 MG CAP PO SCH (09:21)
[2017-05-28] MEDS: BISOPROLOL FUM 2.5 MG PER 1/2TAB PO SCH (09:21)
[2017-05-28] MEDS: ASPIRIN 81 MG ENTERIC TAB PO SCH (09:22)
[2017-05-28 12:00] VITALS: BP 135/65
[2017-05-28 16:00] VITALS: BP 130/78
--- NOTE | 2017-05-28 16:21 | IPNPDOC ---
Text Note Date of Service The patient was seen on 05/28/17. NOTE Subjective: Patient is a 66 year old female with a PMHx of COPD, AILIN on CPAP, R sided heart failure, Arthritis, GERD, who presented to the ER with complaints of SOB and cough over 2 weeks duration. She noted a non-productive cough and subjective fevers and chills. She was admitted for acute COPD exacerbation. Patient was seen and examined at the bedside. Has mild wheezing this morning. She notes that she has improvement overall. She continues to use supplemental oxygen. Objective: Vitals (See below) General: Lying in bed, no acute distress, comfortable, AAOx3 HEENT: NC, AT CVS: RRR, +S1S2 Lungs: Fair air entry b/l, mild expiratory wheezing Abdomen: Soft, ND, NT Extremities: - Edema, - Calf tenderness Assessment and plan: Dyspnea - likely 2/2 Acute COPD exacerbation - Presented with SOB, productive cough, fever and chills - Physical with mild expiratory wheezing that persists - Labs with minimal leukocytosis on admission; ABG was within normal limits - Resp panel and Influenza negative - CXR 05/24: lungs clear - c/w Solumedrol; will keep on current dose for now - c/w DuoNeb, Singulair, Spiriva - Will start TMP/SMX (Day #1); s/p Doxycycline (Total of 5 day antibiotics) Positive blood cultures - Appears to be possibly contamination - Clinically remains afebrile - 1 of 2 bottles positive for Gram positive cocci in clusters; Micrococcus Luteus - Repeat blood cultures remain negative at 48 hours - Will hold off on antibiotics Mild lactic acidosis - likely 2/2 work of breathing Leukocytosis - likely 2/2 corticosteroid use - Remains afebrile - Will continue to monitor Hx of Vocal cord inflammation - No evidence of airway compromise - Pending biopsy by Dr. Zhang next week AILIN on CPAP - allow home CPAP use Arthritis - c/w Celecoxib and Tylenol PRN Depression / Anxiety - c/w Amitriptyline and Alprazolam HTN - c/w Bisoprolol GERD - c/w omeprazole DVT prophylaxis - c/w Lovenox VS,Fishbone, I+O VS, Fishbone, I+O Laboratory Tests 05/28/17 05:30 Red Blood Count 4.94, Mean Corpuscular Volume 86.0, Mean Corpuscular Hemoglobin 27.5, Mean Corpuscular Hemoglobin Concent 32.0, Red Cell Distribution Width 15.3 H, Neutrophils (%) (Auto) 84.8 H, Lymphocytes (%) (Auto) 8.5 L, Monocytes ( %) (Auto) 5.5 H, Eosinophils (%) (Auto) 0.0, Basophils (%) (Auto) 0.2, Neutrophils # (Auto) 11.2 H, Lymphocytes # (Auto) 1.1 L, Monocytes # (Auto) 0.7 , Eosinophils # (Auto) 0.0, Basophils # (Auto) 0.0, Calcium Level 8.5 L Vital Signs Date Time Temp Pulse Resp B/P (MAP) Pulse Ox O2 Delivery O2 Flow Rate FiO2 05/28/17 12:00 98.0 70 20 135/65 (88) 91 Nasal Cannula 2.0 I&O- Last 24 Hours up to 6 AM 05/29/17 06:00 Intake Total 720 ml Output Total 650 ml Balance 70 ml KATHYA LIEBERMAN MD May 28, 2017 16:21
[2017-05-28] MEDS: ALBUTEROL SULFATE 2.5 MG/0.5 ML INH NEB SOLN NEB PRN (17:55)
[2017-05-28 20:00] VITALS: BP 150/82
[2017-05-28] MEDS: MONTELUKAST 10 MG TAB PO SCH (20:07)
[2017-05-28] MEDS: AMITRIPTYLINE 50 MG TAB PO SCH (20:07)
[2017-05-28] MEDS: FLUTICASONE PROP 0.05% NASAL SPRAY 16 GM (FLONASE) SCH (20:08)
[2017-05-28] MEDS: ALPRAZolam 0.5 MG TAB PO PRN (20:08)
[2017-05-28] MEDS: CelecoXIB (CeleBREX) 100 MG CAP PO SCH (20:08)
[2017-05-28] MEDS: BACTRIM 160MG/800MG DS TAB PO SCH (20:08)
[2017-05-29] VITALS (7 sets, daily range): BP systolic 112–151; BP diastolic 72–86
[2017-05-29] MEDS: methylPREDNISolone INJ 40 MG/1 ML VIAL (J2920) IV SCH (01:12)
[2017-05-29] MEDS: ALBUTEROL SULFATE 2.5 MG/0.5 ML INH NEB SOLN NEB SCH ×4 (01:41→20:05)
[2017-05-29 05:34] LABS: BASO # 0.1 10^3/uL (0.0-0.2); BASO % 0.4 % (0.0-1.0); IMMATURE GRANULOCYTE % 2.4 % (0-0); LYMPH # 1.2 10^3/uL (1.5-4.5); LYMPH % 8.5 % (24.0-44.0); MEAN CORPUSCULAR HEMOGLOBIN 27.3 pg (27.0-33.0); MEAN CORPUSCULAR HGB CONC 32.1 g/dl (32.0-36.5); MEAN CORPUSCULAR VOLUME 85.1 fl (80.0-96.0); MONO # 0.7 10^3/uL (0.0-0.8); MONO % 4.8 % (0.0-5.0); NEUTROPHILS # 11.8 10^3/uL (1.8-7.7); NEUTROPHILS % 83.9 % (36.0-66.0); PLATELET COUNT, AUTOMATED 223 10^3/uL (150-450); WHITE BLOOD COUNT 14.1 10^3/uL (4.0-10.0)
[2017-05-29 05:45] LABS: ANION GAP 6 MEQ/L (8-16); BLOOD UREA NITROGEN 24 MG/DL (7-18); CALCIUM LEVEL 8.3 MG/DL (8.8-10.2); CARBON DIOXIDE LEVEL 31 MEQ/L (21-32); CHLORIDE LEVEL 108 MEQ/L (98-107); CREATININE FOR GFR 0.84 MG/DL (0.55-1.02); GLOMERULAR FILTRATION RATE > 60.0 (>45); GLUCOSE, FASTING 146 MG/DL (80-110); MAGNESIUM LEVEL 2.8 MG/DL (1.8-2.4); POTASSIUM SERUM 4.3 MEQ/L (3.5-5.1); SODIUM LEVEL 145 MEQ/L (136-145)
[2017-05-29] MEDS: SLF 3 ML SYR IV SCH ×3 (05:54→21:22)
[2017-05-29] MEDS: TIOTROPIUM INHALER/CAPSULE (SPIRIVA) INH SCH (07:04)
[2017-05-29] MEDS: BISOPROLOL FUM 2.5 MG PER 1/2TAB PO SCH (08:25)
[2017-05-29] MEDS: BACTRIM 160MG/800MG DS TAB PO SCH ×2 (08:25→21:22)
[2017-05-29] MEDS: ASPIRIN 81 MG ENTERIC TAB PO SCH (08:25)
[2017-05-29] MEDS: OMEPRAZOLE 20 MG CAP PO SCH (08:26)
[2017-05-29] MEDS: FUROSEMIDE 20 MG TAB PO SCH (08:26)
[2017-05-29] MEDS: DOCUSATE SODIUM 100 MG CAP PO SCH ×2 (08:26→08:30)
[2017-05-29] MEDS: ALBUTEROL SULFATE 2.5 MG/0.5 ML INH NEB SOLN NEB PRN ×2 (11:43→17:41)
[2017-05-29] MEDS ORDERED: methylPREDNISolone INJ 40 MG/1 ML VIAL (J2920) IV ONE (12:45)
--- NOTE | 2017-05-29 13:39 | IPNPDOC ---
Text Note Date of Service The patient was seen on 05/29/17. NOTE Subjective: Patient is a 66 year old female with a PMHx of COPD, AILIN on CPAP, R sided heart failure, Arthritis, GERD, who presented to the ER with complaints of SOB and cough over 2 weeks duration. She noted a non-productive cough and subjective fevers and chills. She was admitted for acute COPD exacerbation. Patient was seen and examined at the bedside. Had improvement in wheezing this morning. However by this afternoon appeared to have some wheezing. She notes improvement in her cough. Objective: Vitals (See below) General: Lying in bed, no acute distress, comfortable, AAOx3 HEENT: NC, AT CVS: RRR, +S1S2 Lungs: Fair air entry b/l, mild expiratory wheezing Abdomen: Soft, ND, NT Extremities: - Edema, - Calf tenderness Assessment and plan: Dyspnea - likely 2/2 Acute COPD exacerbation - Presented with SOB, productive cough, fever and chills - Physical show improvement in wheezing - Labs with minimal leukocytosis on admission; ABG was within normal limits - Resp panel and Influenza negative ; Sputum Cx 05/26: Klebsiella Oxytoca, H. Influenza - CXR 05/24: lungs clear - Will repeat imaging with Portable CXR - c/w DuoNeb, Singulair, Spiriva - Will start Prednisone today; s/p Solumedrol - c/w TMP/SMX (Day #2); s/p Doxycycline (Total of 6 day antibiotics) Positive blood cultures - Appears to be possibly contamination - Clinically remains afebrile - 1 of 2 bottles positive for Gram positive cocci in clusters; Micrococcus Luteus - Repeat blood cultures remain negative at 72 hours - Will hold off on antibiotics Mild lactic acidosis - likely 2/2 work of breathing Leukocytosis - likely 2/2 corticosteroid use - Remains afebrile - Will continue to monitor Hx of Vocal cord inflammation - No evidence of airway compromise - Pending biopsy by Dr. Zhang next week AILIN on CPAP - allow home CPAP use Arthritis - c/w Celecoxib and Tylenol PRN Depression / Anxiety - c/w Amitriptyline and Alprazolam HTN - c/w Bisoprolol GERD - c/w omeprazole DVT prophylaxis - c/w Lovenox Disposition: - Awaiting her to be off of supplemental oxygen - c/w Antibiotics - Transition to prednisone PO VS,Fishbone, I+O VS, Fishbone, I+O Laboratory Tests 05/29/17 05:12 Red Blood Count 5.31, Mean Corpuscular Volume 85.1, Mean Corpuscular Hemoglobin 27.3, Mean Corpuscular Hemoglobin Concent 32.1, Red Cell Distribution Width 15.0 H, Neutrophils (%) (Auto) 83.9 H, Lymphocytes (%) (Auto) 8.5 L, Monocytes ( %) (Auto) 4.8, Eosinophils (%) (Auto) 0.0, Basophils (%) (Auto) 0.4, Neutrophils # (Auto) 11.8 H, Lymphocytes # (Auto) 1.2 L, Monocytes # (Auto) 0.7 , Eosinophils # (Auto) 0.0, Basophils # (Auto) 0.1, Calcium Level 8.3 L Vital Signs Date Time Temp Pulse Resp B/P (MAP) Pulse Ox O2 Delivery O2 Flow Rate FiO2 05/29/17 12:00 99.7 73 20 138/82 (100) 91 Nasal Cannula 2.0 KATHYA LIEBERMAN MD May 29, 2017 13:39
[2017-05-29] MEDS: FLUTICASONE PROP 0.05% NASAL SPRAY 16 GM (FLONASE) SCH (21:21)
[2017-05-29] MEDS: CelecoXIB (CeleBREX) 100 MG CAP PO SCH (21:21)
[2017-05-29] MEDS: AMITRIPTYLINE 50 MG TAB PO SCH (21:22)
[2017-05-29] MEDS: MONTELUKAST 10 MG TAB PO SCH (21:22)
[2017-05-29] MEDS: predniSONE 20 MG TAB PO SCH (21:22)
[2017-05-30] MEDS: ALBUTEROL SULFATE 2.5 MG/0.5 ML INH NEB SOLN NEB SCH ×4 (01:50→20:14)
[2017-05-30 05:21] LABS: BASO # 0.1 10^3/uL (0.0-0.2); BASO % 0.5 % (0.0-1.0); IMMATURE GRANULOCYTE % 3.7 % (0-0); LYMPH # 1.2 10^3/uL (1.5-4.5); LYMPH % 7.7 % (24.0-44.0); MEAN CORPUSCULAR HEMOGLOBIN 27.6 pg (27.0-33.0); MEAN CORPUSCULAR HGB CONC 32.5 g/dl (32.0-36.5); MEAN CORPUSCULAR VOLUME 84.8 fl (80.0-96.0); MONO # 1.1 10^3/uL (0.0-0.8); MONO % 6.8 % (0.0-5.0); NEUTROPHILS # 13.1 10^3/uL (1.8-7.7); NEUTROPHILS % 81.3 % (36.0-66.0); PLATELET COUNT, AUTOMATED 221 10^3/uL (150-450); RED CELL DISTRIBUTION WIDTH 15.2 % (11.5-14.5); WHITE BLOOD COUNT 16.1 10^3/uL (4.0-10.0)
[2017-05-30 05:25] VITALS: BP 130/84
[2017-05-30 05:33] LABS: ANION GAP 5 MEQ/L (8-16); BLOOD UREA NITROGEN 27 MG/DL (7-18); CALCIUM LEVEL 8.3 MG/DL (8.8-10.2); CARBON DIOXIDE LEVEL 31 MEQ/L (21-32); CHLORIDE LEVEL 108 MEQ/L (98-107); CREATININE FOR GFR 0.87 MG/DL (0.55-1.02); GLOMERULAR FILTRATION RATE > 60.0 (>45); GLUCOSE, FASTING 151 MG/DL (80-110); MAGNESIUM LEVEL 2.6 MG/DL (1.8-2.4); POTASSIUM SERUM 4.5 MEQ/L (3.5-5.1); SODIUM LEVEL 144 MEQ/L (136-145)
[2017-05-30] MEDS: SLF 3 ML SYR IV SCH ×3 (06:00→22:13)
[2017-05-30] MEDS: TIOTROPIUM INHALER/CAPSULE (SPIRIVA) INH SCH (07:02)
[2017-05-30 07:53] VITALS: BP 122/82
[2017-05-30] MEDS: BISOPROLOL FUM 2.5 MG PER 1/2TAB PO SCH (08:51)
[2017-05-30] MEDS: predniSONE 20 MG TAB PO SCH ×2 (08:52→22:12)
[2017-05-30] MEDS: FUROSEMIDE 20 MG TAB PO SCH (08:52)
[2017-05-30] MEDS: ASPIRIN 81 MG ENTERIC TAB PO SCH (08:52)
[2017-05-30] MEDS: OMEPRAZOLE 20 MG CAP PO SCH (08:52)
[2017-05-30] MEDS: BACTRIM 160MG/800MG DS TAB PO SCH ×2 (08:52→22:12)
[2017-05-30] MEDS: DOCUSATE SODIUM 100 MG CAP PO SCH (08:54)
[2017-05-30 11:25] VITALS: BP 114/74
--- NOTE | 2017-05-30 14:41 | IPNPDOC ---
Text Note Date of Service The patient was seen on 05/30/17. NOTE Subjective: Patient is a 66 year old female with a PMHx of COPD, AILIN on CPAP, R sided heart failure, Arthritis, GERD, who presented to the ER with complaints of SOB and cough over 2 weeks duration. She noted a non-productive cough and subjective fevers and chills. She was admitted for acute COPD exacerbation. Patient was seen and examined at the bedside. Breathing continues to improve. Has been requiring reduced amount of supplemental oxygen, will continue taper. Objective: Vitals (See below) General: Lying in bed, no acute distress, comfortable, AAOx3 HEENT: NC, AT CVS: RRR, +S1S2 Lungs: Fair air entry b/l, no wheezing appreciated Abdomen: Soft, ND, NT Extremities: - Edema, - Calf tenderness Assessment and plan: Dyspnea - likely 2/2 Acute COPD exacerbation - Presented with SOB, productive cough, fever and chills - Physical without wheezing today - Labs with minimal leukocytosis on admission; ABG was within normal limits - Resp panel and Influenza negative ; Sputum Cx 05/26: Klebsiella Oxytoca, H. Influenza - CXR 05/24: lungs clear - c/w DuoNeb, Singulair, Spiriva - c/w Prednisone PO; s/p Solumedrol - c/w TMP/SMX (Day #3); s/p Doxycycline (Total of 6 day antibiotics) Positive blood cultures - Appears to be possibly contamination - Clinically remains afebrile - 1 of 2 bottles positive for Gram positive cocci in clusters; Micrococcus Luteus - Repeat blood cultures remain negative at 72 hours - Will hold off on antibiotics Mild lactic acidosis - likely 2/2 work of breathing Leukocytosis - likely 2/2 corticosteroid use - Remains afebrile - Will continue to monitor Hx of Vocal cord inflammation - No evidence of airway compromise - Pending biopsy by Dr. Zhang next week AILIN on CPAP - allow home CPAP use Arthritis - c/w Celecoxib and Tylenol PRN Depression / Anxiety - c/w Amitriptyline and Alprazolam HTN - c/w Bisoprolol GERD - c/w omeprazole DVT prophylaxis - c/w Lovenox Disposition: - c/w Prednisone until supplemental oxygen requirement has improved - DC thereafter VS,Fishbone, I+O VS, Fishbone, I+O Laboratory Tests 05/30/17 04:31 Red Blood Count 5.00, Mean Corpuscular Volume 84.8, Mean Corpuscular Hemoglobin 27.6, Mean Corpuscular Hemoglobin Concent 32.5, Red Cell Distribution Width 15.2 H, Neutrophils (%) (Auto) 81.3 H, Lymphocytes (%) (Auto) 7.7 L, Monocytes ( %) (Auto) 6.8 H, Eosinophils (%) (Auto) 0.0, Basophils (%) (Auto) 0.5, Neutrophils # (Auto) 13.1 H, Lymphocytes # (Auto) 1.2 L, Monocytes # (Auto) 1.1 H, Eosinophils # (Auto) 0.0, Basophils # (Auto) 0.1, Calcium Level 8.3 L Vital Signs Date Time Temp Pulse Resp B/P (MAP) Pulse Ox O2 Delivery O2 Flow Rate FiO2 05/30/17 11:25 97.1 69 18 114/74 (87) 92 NIPPV (BIPAP/CPAP) 05/30/17 05:25 2.0 I&O- Last 24 Hours up to 6 AM 05/31/17 06:00 Intake Total 960 ml Balance 960 ml KATHYA LIEBERMAN MD May 30, 2017 14:41
[2017-05-30 15:37] VITALS: BP 141/66
[2017-05-30] MEDS: ALBUTEROL SULFATE 2.5 MG/0.5 ML INH NEB SOLN NEB PRN (16:34)
[2017-05-30 22:05] VITALS: BP 134/83
[2017-05-30] MEDS: FLUTICASONE PROP 0.05% NASAL SPRAY 16 GM (FLONASE) SCH (22:11)
[2017-05-30] MEDS: CelecoXIB (CeleBREX) 100 MG CAP PO SCH (22:12)
[2017-05-30] MEDS: MONTELUKAST 10 MG TAB PO SCH (22:12)
[2017-05-30] MEDS: ALPRAZolam 0.5 MG TAB PO PRN (22:12)
[2017-05-30] MEDS: AMITRIPTYLINE 50 MG TAB PO SCH (22:12)
[2017-05-31] VITALS (7 sets, daily range): BP systolic 131–158; BP diastolic 61–92
[2017-05-31] MEDS: ALBUTEROL SULFATE 2.5 MG/0.5 ML INH NEB SOLN NEB SCH ×4 (02:00→20:02)
[2017-05-31] MEDS: SLF 3 ML SYR IV SCH ×3 (04:32→21:09)
[2017-05-31 05:15] LABS: BASO # 0.1 10^3/uL (0.0-0.2); BASO % 0.4 % (0.0-1.0); IMMATURE GRANULOCYTE % 4.8 % (0-0); LYMPH # 1.4 10^3/uL (1.5-4.5); LYMPH % 8.1 % (24.0-44.0); MEAN CORPUSCULAR HEMOGLOBIN 27.3 pg (27.0-33.0); MEAN CORPUSCULAR HGB CONC 31.9 g/dl (32.0-36.5); MEAN CORPUSCULAR VOLUME 85.7 fl (80.0-96.0); MONO # 0.9 10^3/uL (0.0-0.8); MONO % 5.5 % (0.0-5.0); NEUTROPHILS # 13.5 10^3/uL (1.8-7.7); NEUTROPHILS % 81.2 % (36.0-66.0); PLATELET COUNT, AUTOMATED 233 10^3/uL (150-450); RED CELL DISTRIBUTION WIDTH 15.4 % (11.5-14.5); WHITE BLOOD COUNT 16.6 10^3/uL (4.0-10.0)
[2017-05-31 05:27] LABS: ANION GAP 4 MEQ/L (8-16); BLOOD UREA NITROGEN 27 MG/DL (7-18); CARBON DIOXIDE LEVEL 30 MEQ/L (21-32); CHLORIDE LEVEL 109 MEQ/L (98-107); CREATININE FOR GFR 0.91 MG/DL (0.55-1.02); GLOMERULAR FILTRATION RATE > 60.0 (>45); GLUCOSE, FASTING 163 MG/DL (80-110); MAGNESIUM LEVEL 2.7 MG/DL (1.8-2.4); SODIUM LEVEL 143 MEQ/L (136-145)
[2017-05-31] MEDS: TIOTROPIUM INHALER/CAPSULE (SPIRIVA) INH SCH (07:17)
[2017-05-31] MEDS: ASPIRIN 81 MG ENTERIC TAB PO SCH (08:46)
[2017-05-31] MEDS: BACTRIM 160MG/800MG DS TAB PO SCH ×2 (08:46→21:09)
[2017-05-31] MEDS: FUROSEMIDE 20 MG TAB PO SCH (08:46)
[2017-05-31] MEDS: BISOPROLOL FUM 2.5 MG PER 1/2TAB PO SCH (08:46)
[2017-05-31] MEDS: predniSONE 20 MG TAB PO SCH ×2 (08:47→21:09)
[2017-05-31] MEDS: DOCUSATE SODIUM 100 MG CAP PO SCH (08:47)
[2017-05-31] MEDS: OMEPRAZOLE 20 MG CAP PO SCH (08:47)
[2017-05-31] MEDS: ALBUTEROL SULFATE 2.5 MG/0.5 ML INH NEB SOLN NEB PRN (10:52)
--- NOTE | 2017-05-31 13:20 | IPNPDOC ---
Text Note Date of Service The patient was seen on 05/31/17. NOTE Subjective: Patient is a 66 year old female with a PMHx of COPD, AILIN on CPAP, R sided heart failure, Arthritis, GERD, who presented to the ER with complaints of SOB and cough over 2 weeks duration. She noted a non-productive cough and subjective fevers and chills. She was admitted for acute COPD exacerbation. Patient was seen and examined at the bedside. Denies any breathing difficulty this morning, no wheezing reported. Has noted a cough. She has worked with physical therapy and has shown desaturation to <86% with ambulation / stairs. Will likely need to have oxygen upon discharge. Objective: Vitals (See below) General: Lying in bed, no acute distress, comfortable, AAOx3 HEENT: NC, AT CVS: RRR, +S1S2 Lungs: Fair air entry b/l, no wheezing appreciated Abdomen: Soft, ND, NT Extremities: - Edema, - Calf tenderness Assessment and plan: Dyspnea - likely 2/2 Acute COPD exacerbation - Presented with SOB, productive cough, fever and chills; has had improvement in SOB and resolution of wheezing - Physical without wheezing today and better aeration of lungs - Labs with minimal leukocytosis on admission; ABG was within normal limits - Resp panel and Influenza negative ; Sputum Cx 05/26: Klebsiella Oxytoca, H. Influenza - CXR 05/24: lungs clear - c/w DuoNeb, Singulair, Spiriva - c/w Prednisone PO; s/p Solumedrol - c/w TMP/SMX (Day #4); s/p Doxycycline (Total of 6 day antibiotics) Positive blood cultures - likely 2/2 contamination - Clinically remains afebrile - 1 of 2 bottles positive for Gram positive cocci in clusters; Micrococcus Luteus - Repeat blood cultures remain negative at 72 hours still Mild lactic acidosis - likely 2/2 work of breathing Leukocytosis - likely 2/2 corticosteroid use - Remains afebrile - Will continue to monitor Hx of Vocal cord inflammation - No evidence of airway compromise - Pending biopsy by Dr. Zhang next week AILIN on CPAP - allow home CPAP use Arthritis - c/w Celecoxib and Tylenol PRN Depression / Anxiety - c/w Amitriptyline and Alprazolam HTN - c/w Bisoprolol GERD - c/w omeprazole DVT prophylaxis - c/w Lovenox Disposition: - c/w Prednisone until supplemental oxygen requirement has improved - Plan on DC tomorrow with home O2 VS,Gurmeet, I+O VS, Valeriee, I+O Laboratory Tests 05/31/17 04:38 Red Blood Count 5.16, Mean Corpuscular Volume 85.7, Mean Corpuscular Hemoglobin 27.3, Mean Corpuscular Hemoglobin Concent 31.9 L, Red Cell Distribution Width 15.4 H, Neutrophils (%) (Auto) 81.2 H, Lymphocytes (%) (Auto) 8.1 L, Monocytes ( %) (Auto) 5.5 H, Eosinophils (%) (Auto) 0.0, Basophils (%) (Auto) 0.4, Neutrophils # (Auto) 13.5 H, Lymphocytes # (Auto) 1.4 L, Monocytes # (Auto) 0.9 H, Eosinophils # (Auto) 0.0, Basophils # (Auto) 0.1, Calcium Level 8.0 L Vital Signs Date Time Temp Pulse Resp B/P (MAP) Pulse Ox O2 Delivery O2 Flow Rate FiO2 05/31/17 11:56 98.4 75 18 131/61 (84) 91 Room Air 05/31/17 04:27 1.0 I&O- Last 24 Hours up to 6 AM 06/01/17 06:00 Intake Total 300 ml Balance 300 ml KATHYA LIEBERMAN MD May 31, 2017 13:19
[2017-05-31] MEDS ORDERED: PRED10TA2 PO (15:56)
[2017-05-31] MEDS: FLUTICASONE PROP 0.05% NASAL SPRAY 16 GM (FLONASE) SCH (21:09)
[2017-05-31] MEDS: ALPRAZolam 0.5 MG TAB PO PRN (21:09)
[2017-05-31] MEDS: CelecoXIB (CeleBREX) 100 MG CAP PO SCH (21:09)
[2017-05-31] MEDS: AMITRIPTYLINE 50 MG TAB PO SCH (21:09)
[2017-05-31] MEDS: MONTELUKAST 10 MG TAB PO SCH (21:09)
[2017-06-01] VITALS: BP 130/76
[2017-06-01] MEDS: ALBUTEROL SULFATE 2.5 MG/0.5 ML INH NEB SOLN NEB SCH ×2 (02:00→07:19)
[2017-06-01 04:00] VITALS: BP 130/70
[2017-06-01] MEDS: SLF 3 ML SYR IV SCH (05:39)
[2017-06-01] MEDS: TIOTROPIUM INHALER/CAPSULE (SPIRIVA) INH SCH (07:19)
[2017-06-01 07:30] VITALS: BP 133/71
[2017-06-01 07:56] LABS: MEAN CORPUSCULAR HEMOGLOBIN 27.4 pg (27.0-33.0); MEAN CORPUSCULAR HGB CONC 32.4 g/dl (32.0-36.5); MEAN CORPUSCULAR VOLUME 84.7 fl (80.0-96.0); PLATELET COUNT, AUTOMATED 252 10^3/uL (150-450); RED CELL DISTRIBUTION WIDTH 15.8 % (11.5-14.5); WHITE BLOOD COUNT 19.4 10^3/uL (4.0-10.0)
[2017-06-01 08:07] LABS: ADD MANUAL DIFFER YES; DIFF SLIDE NUMBER 85; POS COUNT POS FLAG; POSITIVE MORPH POS FLAG
[2017-06-01 08:23] LABS: ALBUMIN 2.7 GM/DL (3.2-5.2); ALBUMIN/GLOBULIN RATIO 0.79 (1.00-1.93); ALKALINE PHOSPHATASE 70 U/L (45-117); ALT/SGPT 70 U/L (12-78); ANION GAP 4 MEQ/L (8-16); AST/SGOT 22 U/L (7-37); BILIRUBIN,TOTAL 0.3 MG/DL (0.2-1.0); BLOOD UREA NITROGEN 23 MG/DL (7-18); CALCIUM LEVEL 8.2 MG/DL (8.8-10.2); CARBON DIOXIDE LEVEL 30 MEQ/L (21-32); CHLORIDE LEVEL 108 MEQ/L (98-107); CREATININE FOR GFR 0.97 MG/DL (0.55-1.02); GLOMERULAR FILTRATION RATE > 60.0 (>45); GLUCOSE, FASTING 124 MG/DL (80-110); MAGNESIUM LEVEL 2.5 MG/DL (1.8-2.4); SODIUM LEVEL 142 MEQ/L (136-145); TOTAL PROTEIN 6.1 GM/DL (6.4-8.2)
[2017-06-01 08:45] LABS: BANDS 3 % (< 11)
[2017-06-01] MEDS: BACTRIM 160MG/800MG DS TAB PO SCH (09:02)
[2017-06-01] MEDS: OMEPRAZOLE 20 MG CAP PO SCH (09:03)
[2017-06-01] MEDS: predniSONE 20 MG TAB PO SCH (09:03)
[2017-06-01] MEDS: DOCUSATE SODIUM 100 MG CAP PO SCH (09:03)
[2017-06-01] MEDS: ASPIRIN 81 MG ENTERIC TAB PO SCH (09:03)
[2017-06-01] MEDS: FUROSEMIDE 20 MG TAB PO SCH (09:03)
[2017-06-01] MEDS: BISOPROLOL FUM 2.5 MG PER 1/2TAB PO SCH (09:04)
[2017-06-01] MEDS: ALBUTEROL SULFATE 2.5 MG/0.5 ML INH NEB SOLN NEB PRN (11:31)
--- NOTE | 2017-06-02 08:58 | DSES ---
DATE OF ADMISSION: 05/24/2017 DATE OF DISCHARGE: 06/01/2017 ATTENDING PHYSICIAN: Lexi Vallejo MD, Avila Jacob MD. PRIMARY CARE PHYSICIAN: Ty Nelson MD REFERRING PHYSICIAN: None. CONSULTING PHYSICIAN: None. CONDITION ON DISCHARGE: Stable. FINAL DIAGNOSIS: Dyspnea, likely secondary to acute chronic obstructive pulmonary disease (COPD) exacerbation. PROCEDURES: None. HISTORY OF PRESENT ILLNESS: Patient is a 66-year-old female with a past medical history of COPD, obstructive sleep apnea on continuous positive airway pressure (CPAP), right-sided heart failure, arthritis, gastroesophageal reflux disease (GERD), who presented to the emergency room (ER) with complaints of shortness of breath and cough of 2-week duration. She did have a nonproductive cough and subjective fever and chills. She was admitted for acute COPD exacerbation. HOSPITAL COURSE: 1. Dyspnea, likely secondary to acute COPD exacerbation. Presented with shortness of breath, productive cough, fever, and chills. Has had improvement in breathing throughout her hospital course. Resolution of her wheezing. Physical currently is without any wheezing and with better aeration of her lung marrero. Labs with a normal leukocytosis on admission. Arterial blood gas (ABG) was within normal limits. Respiratory panel, influenza were negative. Sputum culture on 05/26/2017 was positive for Klebsiella oxytoca. Chest x-ray on 05/24/2017 was negative. Continue with DuoNebs, Singulair, and Spiriva. Patient was put on Solu-Medrol IV and has been tapered down to prednisone by mouth. Patient was initially put on doxycycline and has been transitioned to Bactrim based on sputum cultures. Today aguilar day #5. She will be continued with antibiotics for completion of antibiotic course. 2. Positive blood cultures, likely secondary to contamination. Clinically remains afebrile. One of two bottles were positive from admission, and it was positive for Micrococcus luteus, which is likely a contaminant. Repeat blood cultures have remained negative. 3. Mild lactic acidosis, likely secondary to work of breathing. 4. Leukocytosis, likely secondary to corticosteroid use. Remains afebrile. Will continue to monitor. 5. History of vocal cord inflammation. No evidence of airway compromise. Has an appointment with Dr. Viramontes next week for a biopsy. 6. Obstructive sleep apnea. On home CPAP use. 7. Arthritis. Continue with celecoxib and Tylenol as needed. 8. Depression/anxiety. Continue with amitriptyline and alprazolam. 9. Hypertension. Continue with bisoprolol. 10. GERD. Continue with omeprazole. 11. Deep venous thrombosis (DVT) prophylaxis. Continue with Lovenox. Patient will be discharged home with a prednisone taper as well as completion of antibiotic course. She has been advised to followup with her primary care provider within the next 7 days. She has been advised to remain compliant with treatment plan and medications, and return to the emergency room if she experiences any problems. DISCHARGE MEDICATIONS: Include: - prednisone to be taken as directed - Bactrim to be taken as directed - albuterol inhaled as needed shortness of breath - albuterol 2.5 mg inhaled every 4 hours as needed shortness of breath - alprazolam 0.5 mg by mouth twice a day as needed anxiety - amitriptyline 50 mg by mouth nightly - aspirin 81 mg by mouth daily - bisoprolol fumarate one tablet by mouth daily - Symbicort one puff inhaled twice a day - calcium chewable three tablets by mouth nightly - celecoxib 200 mg by mouth nightly - docusate sodium 200 mg by mouth daily - fluticasone two sprays in each nostril nightly - furosemide 20 mg by mouth daily - Incruse Ellipta one puff inhaled daily - levocetirizine 5 mg by mouth nightly - methocarbamol 500 mg by mouth twice a day as needed muscle spasms - montelukast 10 mg by mouth nightly - omeprazole 20 mg by mouth daily - Pataday 0.2% in each eye as needed allergies - polyethylene glycol 17 grams by mouth daily as needed constipation TIME SPENT ON DISCHARGE: Greater than 35 minutes.
--- NOTE | 2017-06-03 21:15 | NOCOX ---
DATE OF PROCEDURE: 05/31/2017 Recording nocturnal oximetry was performed on patient's own CPAP and room air. A total of 6 hours and 33 minutes of data was reviewed. Mean oxygen saturation for the study was 93% with a minimum recorded value of 89%. She spent 100% of the night with saturations greater than 88%. In reviewing the SpO2 wave form, there were minimal fluctuations. IMPRESSION: 1. Appropriate nocturnal oxygen saturation on CPAP. 2. Minimal fluctuations in the SpO2 wave form.
== END 2017-06-01 13:14 | disposition home or self-care (01) | DRG 191 ==
LOC: M ED 09:15 → M ED INP 12:58 → M PCU 15:11
PROVIDERS: ADMIT Internal Medicine; ATTEND Internal Medicine
DX: J44.1 Chronic obstructive pulmonary disease with (acute) exacerbation (principal); E87.2 Acidosis; J38.3 Other diseases of vocal cords; K21.9 Gastro-esophageal reflux disease without esophagitis; G47.33 Obstructive sleep apnea (adult) (pediatric); I50.810 Right heart failure, unspecified; F17.210 Nicotine dependence, cigarettes, uncomplicated; M19.90 Unspecified osteoarthritis, unspecified site; Z79.82 Long term (current) use of aspirin; Z79.899 Other long term (current) drug therapy; Z88.5 Allergy status to narcotic agent; Z88.8 Allergy status to other drugs, medicaments and biological substances; Z90.49 Acquired absence of other specified parts of digestive tract

== ENCOUNTER 2017-06-25 09:37 | Emergency (ER) | payer MEDICARE, OTHER ==
[~2017-06-25] VITALS: Ht 157.5 cm; Wt 101.4 kg
[~2017-06-25 09:37] MED LIST changes: +CALC1CHW PO; +FLUTISP; +LEVOTAB10 PO; +METH1TAB40 PO; +MIRA33504 PO; +PRED10TA2 PO; +STOO100C PO; +SYMB16INH
[2017-06-25] MEDS ORDERED: MUPI2OI EXT (09:58)
[2017-06-25] MEDS ORDERED: NYST50SS SS (09:58)
== END 2017-06-25 10:03 | disposition home or self-care (01) ==
LOC: M ED 09:37
DX: B37.0 Candidal stomatitis (principal); J34.89 Other specified disorders of nose and nasal sinuses; I10 Essential (primary) hypertension; J45.909 Unspecified asthma, uncomplicated; J32.9 Chronic sinusitis, unspecified; M54.9 Dorsalgia, unspecified; K57.92 Diverticulitis of intestine, part unspecified, without perforation or abscess without bleeding; Z79.899 Other long term (current) drug therapy; Z79.82 Long term (current) use of aspirin; Z88.8 Allergy status to other drugs, medicaments and biological substances; Z88.5 Allergy status to narcotic agent; Z88.2 Allergy status to sulfonamides; Z91.041 Radiographic dye allergy status

== ENCOUNTER → 2017-07-01 | Outpatient (CLI) | payer OTHER ==
[~2017-07-01] MED LIST changes: +MUPI2OI EXT; +NYST50SS SS
--- NOTE | 2017-07-01 09:18 | REP ---
CT NECK WITHOUT CONTRAST: HISTORY: Dysphonia. The naso-, franny-, and hypopharynx, larynx and subglottic trachea are normal in appearance. The salivary and thyroid glands are normal in size and density. Small lymph nodes less than 1 cm in size are present in the internal jugular chains, posterior triangles, and submandibular areas. Degenerative change is present in the cervical spine. The lung apices are clear. The visualized sinuses are clear. IMPRESSION: There is no neck mass or adenopathy. Signed by Antonio Garcia MD 07/01/2017 09:33 A
== END ==
LOC: M RAD 08:10
PROVIDERS: ATTEND Otolaryngology
DX: R49.0 Dysphonia (principal)

== ENCOUNTER → 2017-08-05 | Outpatient (REF) | payer OTHER ==
[2017-08-05 12:25] LABS: HEMATOCRIT 48.5 % (36.0-47.0); HEMOGLOBIN 15.9 g/dl (12.0-16.0); MEAN CORPUSCULAR HEMOGLOBIN 27.5 pg (27.0-33.0); MEAN CORPUSCULAR HGB CONC 32.8 g/dl (32.0-36.5); MEAN CORPUSCULAR VOLUME 83.9 fl (80.0-96.0); PLATELET COUNT, AUTOMATED 295 10^3/uL (150-450); RED BLOOD COUNT 5.78 10^6/uL (4.00-5.40); RED CELL DISTRIBUTION WIDTH 15.4 % (11.5-14.5); WHITE BLOOD COUNT 7.3 10^3/uL (4.0-10.0)
[2017-08-05 12:30] LABS: ADD MANUAL DIFFER YES; DIFF SLIDE NUMBER 181; POSITIVE MORPH POS FLAG
[2017-08-05 12:31] LABS: ANION GAP 8 MEQ/L (8-16); BLOOD UREA NITROGEN 22 MG/DL (7-18); CALCIUM LEVEL 8.8 MG/DL (8.8-10.2); CARBON DIOXIDE LEVEL 28 MEQ/L (21-32); CHLORIDE LEVEL 108 MEQ/L (98-107); CREATININE FOR GFR 0.87 MG/DL (0.55-1.02); GLOMERULAR FILTRATION RATE > 60.0 (>45); GLUCOSE, FASTING 101 MG/DL (80-110); POTASSIUM SERUM 3.3 MEQ/L (3.5-5.1); SODIUM LEVEL 144 MEQ/L (136-145)
[2017-08-05 13:41] LABS: ATYPICAL LYMPH 1 % (0-5); BANDS 2 % (< 11); EOSINOPHILS 6 % (0-5); LYMPHOCYTES 27 % (16-52); MONOCYTES 8 % (0-8); NEUTROPHILS 56 % (35-75)
[2017-08-05 13:44] LABS: PLATELET ESTIMATE NORMAL (NORMAL)
[2017-08-05 13:45] LABS: ANISOCYTOSIS 1+
== END ==
LOC: M LABDRAW1 10:25
DX: J44.1 Chronic obstructive pulmonary disease with (acute) exacerbation (principal)
CPT/HCPCS: 80048

== ENCOUNTER 2017-09-30 05:01 | Emergency (ER) | payer OTHER ==
[2017-09-30 06:36] LABS: AMORPHOUS SEDIMENT RFX SMALL (NEGATIVE); KETONE, URINE AUTO RFX NEGATIVE (NEGATIVE); LEUKOCYTE ESTERASE UR AUTO RFX 3+ (NEGATIVE); MUCUS, URINE RFX SMALL (NEGATIVE); NITRITE, URINE AUTO RFX NEGATIVE (NEGATIVE); RBC, URINE AUTO RFX 19 /HPF (0-3); SPECIFIC GRAVITY UR AUTO RFX 1.004 (1.002-1.035); SQUAM EPITHELIAL CELL UR AURFX 9 /HPF (0-6); WBC, URINE AUTO RFX TNTC /HPF (0-3)
[2017-09-30] MEDS: NITROFURANTOIN (MACROBID) 100 MG CAP PO ×2 (07:34)
== END 2017-09-30 07:37 | disposition home or self-care (01) ==
LOC: M ED 05:01
DX: N30.90 Cystitis, unspecified without hematuria (principal); Z79.899 Other long term (current) drug therapy; Z79.82 Long term (current) use of aspirin; Z79.51 Long term (current) use of inhaled steroids; Z88.2 Allergy status to sulfonamides; Z88.5 Allergy status to narcotic agent; Z91.041 Radiographic dye allergy status; F17.210 Nicotine dependence, cigarettes, uncomplicated
CPT/HCPCS: 81001

== ENCOUNTER → 2017-10-07 | Outpatient (CLI) | payer MEDICARE ==
[2017-10-07 09:06] LABS: COLLAGEN ADP 79 SECONDS (56-103); COLLAGEN EPINEPHRINE 164 SECONDS (74-162)
== END ==
LOC: M LAB 08:14
DX: D23.12 Other benign neoplasm of skin of left eyelid, including canthus (principal); H04.562 Stenosis of left lacrimal punctum
CPT/HCPCS: 36415

== ENCOUNTER → 2018-01-19 | Outpatient (REF) | payer MEDICARE ==
[2018-01-19 12:24] LABS: BASO % 0.5 % (0.0-1.0); EOS # 0.2 10^3/uL (0.0-0.50); EOS % 2.3 % (0.0-3.0); HEMATOCRIT 47.7 % (36.0-47.0); IMMATURE GRANULOCYTE % 0.5 % (0-3.0); LYMPH % 23.3 % (24.0-44.0); MEAN CORPUSCULAR HEMOGLOBIN 27.6 pg (27.0-33.0); MEAN CORPUSCULAR HGB CONC 31.4 g/dl (32.0-36.5); MEAN CORPUSCULAR VOLUME 87.8 fl (80.0-96.0); MONO # 0.8 10^3/uL (0.0-0.8); MONO % 9.2 % (0.0-5.0); NEUTROPHILS # 5.5 10^3/uL (1.8-7.7); NEUTROPHILS % 64.2 % (36.0-66.0); PLATELET COUNT, AUTOMATED 245 10^3/uL (150-450); RED BLOOD COUNT 5.43 10^6/uL (4.00-5.40); RED CELL DISTRIBUTION WIDTH 15.2 % (11.5-14.5); WHITE BLOOD COUNT 8.6 10^3/uL (4.0-10.0)
[2018-01-19 13:06] LABS: ALBUMIN 3.1 GM/DL (3.2-5.2); ALBUMIN/GLOBULIN RATIO 0.97 (1.00-1.93); ALKALINE PHOSPHATASE 94 U/L (45-117); ALT/SGPT 44 U/L (12-78); ANION GAP 8 MEQ/L (8-16); AST/SGOT 23 U/L (7-37); BILIRUBIN,TOTAL 0.3 MG/DL (0.2-1.0); BLOOD UREA NITROGEN 16 MG/DL (7-18); CALCIUM LEVEL 8.7 MG/DL (8.8-10.2); CARBON DIOXIDE LEVEL 31 MEQ/L (21-32); CHLORIDE LEVEL 108 MEQ/L (98-107); CREATININE FOR GFR 0.81 MG/DL (0.55-1.30); GLOMERULAR FILTRATION RATE > 60.0 (>45); GLUCOSE, FASTING 71 MG/DL (70-100); POTASSIUM SERUM 3.6 MEQ/L (3.5-5.1); SODIUM LEVEL 147 MEQ/L (136-145); TOTAL PROTEIN 6.3 GM/DL (6.4-8.2)
== END ==
LOC: M LABDRAW1 12:00
DX: R06.02 Shortness of breath (principal); I11.9 Hypertensive heart disease without heart failure; I27.81 Cor pulmonale (chronic)
CPT/HCPCS: 80053

== ENCOUNTER → 2018-09-26 | Outpatient (CLI) | payer MEDICARE ==
[~2018-09-26] MED LIST changes: +MACR100C43 PO; +PROBCAP4 PO; -PROM12.55 PO; +PROM12.56 PO; +PYRI1TAB5 PO
--- NOTE | 2018-09-26 11:24 | REP ---
PA and lateral chest: Comparison is 11/09/2017. The lung marrero are clear. The cardiac size is normal. The kit, mediastinum, and skeletal structures are unremarkable. Impression: Negative PA and lateral chest. There is no interval change. Electronically Signed by Xavi Collins MD 09/26/2018 11:16 A
== END ==
LOC: M RAD 10:45
PROVIDERS: ATTEND Nurse Practitioner Family
DX: R05 Cough (principal)

== ENCOUNTER 2018-09-27 12:37 | Emergency (ER) | payer MEDICAID, MEDICARE ==
[~2018-09-27] VITALS: Ht 160 cm; Wt 106.2 kg
[2018-09-27 13:18] LABS: BASO % 0.2 % (0.0-1.0); EOS % 0.1 % (0.0-3.0); HEMATOCRIT 47.5 % (36.0-47.0); HEMOGLOBIN 15.2 g/dl (12.0-15.5); LYMPH % 10.2 % (24.0-44.0); MEAN CORPUSCULAR HEMOGLOBIN 27.9 pg (27.0-33.0); MEAN CORPUSCULAR VOLUME 87.2 fl (80.0-96.0); MONO # 0.3 10^3/uL (0.0-0.8); MONO % 2.6 % (0.0-5.0); NEUTROPHILS # 8.2 10^3/uL (1.8-7.7); NEUTROPHILS % 86.5 % (36.0-66.0); PLATELET COUNT, AUTOMATED 267 10^3/uL (150-450); RED BLOOD COUNT 5.45 10^6/uL (4.00-5.40); WHITE BLOOD COUNT 9.5 10^3/uL (4.0-10.0)
--- NOTE | 2018-09-27 13:20 | REP ---
Clinical: Acute chest pain . Comparison: 09/26/2018 . Findings: The mediastinum and cardiac silhouette are stable and within normal limits for portable technique. The lung marrero demonstrate mild chronic left basilar changes without acute consolidation, effusion, or pneumothorax. Skeletal structures are intact. Impression: No acute cardiopulmonary process appreciated. Electronically Signed by Sudhakar Wilcox MD 09/27/2018 01:11 P
[2018-09-27 13:28] LABS: INR 0.97
[2018-09-27 13:29] LABS: PARTIAL THROMBOPLASTIN TIME 29.9 SECONDS (25.4-37.6)
[2018-09-27 13:44] LABS: ALBUMIN 3.1 GM/DL (3.2-5.2); ALT/SGPT 57 U/L (12-78); BILIRUBIN,DIRECT < 0.1 MG/DL (0.0-0.2); BILIRUBIN,TOTAL 0.2 MG/DL (0.2-1.0); BLOOD UREA NITROGEN 10 MG/DL (7-18); CALCIUM LEVEL 8.5 MG/DL (8.8-10.2); CARBON DIOXIDE LEVEL 31 MEQ/L (21-32); CHLORIDE LEVEL 106 MEQ/L (98-107); CPK CREATINE PHOSPHOKINASE 178 U/L (26-192); CREATININE FOR GFR 0.88 MG/DL (0.55-1.30); FREE T4 0.91 NG/DL (0.76-1.46); GLOMERULAR FILTRATION RATE > 60.0 (>39); GLUCOSE, FASTING 101 MG/DL (70-100); LIPASE 132 U/L (73-393); MB/CK RELATIVE INDEX 1.07 (< OR =4); POTASSIUM SERUM 3.8 MEQ/L (3.5-5.1); SODIUM LEVEL 141 MEQ/L (136-145); THYROID STIMULATING HORMONE 0.818 uIU/ML (0.358-3.740); TOTAL PROTEIN 7.2 GM/DL (6.4-8.2); TROPONIN I < 0.02 NG/ML (< 0.10)
[2018-09-27] MEDS ORDERED: IPRATROPIUM 0.5MG/ALBUTEROL 2.5MG INH SOL UD 3ML (DUONEB)(J7620) NEB ONE (13:45)
[2018-09-27] MEDS ORDERED: dexameTHASONE 20 MG/5 ML VIAL (J1100) IV ONE (13:45)
[2018-09-27] MEDS ORDERED: ALBUTEROL SULFATE 2.5 MG/0.5 ML INH NEB SOLN INH ONE (13:45)
[2018-09-27 16:49] LABS: CPK CREATINE PHOSPHOKINASE 166 U/L (26-192); MB/CK RELATIVE INDEX 1.14 (< OR =4); TROPONIN I < 0.02 NG/ML (< 0.10)
[2018-09-27] MEDS ORDERED: PRED20TA PO (17:20)
[2018-09-27 17:27] VITALS: BP 166/78
--- NOTE | 2018-09-28 07:38 | ECGEPIP ---
Stationary ECG Study [facility] - ED Test Date: 2018-09-27 Pat Name: MARIANGEL PHILLIPS Department: Room: - Gender: F Welt Sole Layer: : 1950 Requested By: Zenia Billingsley Order Number: [id number] Reading MD: Se Vaughn Measurements Intervals [place] Rate: 76 P: 60 [place]: 200 QRS: -13 QRSD: 87 T: 28 QT: 392 QTc: 443 Interpretive Statements SINUS RHYTHM POOR R WAVE PROGRESSION PRIOR INFERIOR INFARCT SIMILAR TO 05/24/17 Electronically Signed On 09-28-2018 7:38:33 EST by Se Vaughn
== END 2018-09-27 17:39 | disposition home or self-care (01) ==
LOC: M ED 12:37
DX: J44.1 Chronic obstructive pulmonary disease with (acute) exacerbation (principal); R94.31 Abnormal electrocardiogram [ECG] [EKG]; K21.9 Gastro-esophageal reflux disease without esophagitis; G47.33 Obstructive sleep apnea (adult) (pediatric); F17.200 Nicotine dependence, unspecified, uncomplicated; Z88.8 Allergy status to other drugs, medicaments and biological substances; Z88.5 Allergy status to narcotic agent; Z88.1 Allergy status to other antibiotic agents; Z88.2 Allergy status to sulfonamides; Z79.899 Other long term (current) drug therapy; Z79.82 Long term (current) use of aspirin
CPT/HCPCS: 71045; 80048; 80076; 82550; 82553; 83690; 84439; 84443; 84484; 85025; 85610; 85730; 93005; 93041; 94640; 94760; 96374; 99285; J1100

== ENCOUNTER 2018-11-27 07:54 | Emergency (ER) | payer MEDICARE ==
[~2018-11-27] VITALS: Ht 157.5 cm; Wt 102.3 kg
[~2018-11-27 07:54] MED LIST changes: -/ACETCOD3T OR; -/ADVA50050 INH; -/TIOT18INH INH; +ACET1TAB16 OR; +ADVA1AER2 INH; +PRED-351 PO; -PRED10TA PO
[2018-11-27] MEDS ORDERED: TIZA4TAB4 (08:23)
[2018-11-27] MEDS ORDERED: FLUC150T PO (09:45)
[2018-11-27] MEDS ORDERED: MACR100C43 PO (09:45)
[2018-11-27 09:50] VITALS: BP 116/63
== END 2018-11-27 09:51 | disposition home or self-care (01) ==
LOC: M ED 07:54
DX: N30.90 Cystitis, unspecified without hematuria (principal); N89.8 Other specified noninflammatory disorders of vagina; J44.9 Chronic obstructive pulmonary disease, unspecified; J45.909 Unspecified asthma, uncomplicated; I10 Essential (primary) hypertension; G47.30 Sleep apnea, unspecified; K21.9 Gastro-esophageal reflux disease without esophagitis; F33.9 Major depressive disorder, recurrent, unspecified; F41.9 Anxiety disorder, unspecified; N28.9 Disorder of kidney and ureter, unspecified; Z99.89 Dependence on other enabling machines and devices; Z79.899 Other long term (current) drug therapy; Z79.82 Long term (current) use of aspirin; Z88.1 Allergy status to other antibiotic agents; Z88.5 Allergy status to narcotic agent; Z88.8 Allergy status to other drugs, medicaments and biological substances; Z91.041 Radiographic dye allergy status; F17.210 Nicotine dependence, cigarettes, uncomplicated

== ENCOUNTER → 2019-02-16 | Outpatient (REF) | payer MEDICARE ==
[~2019-02-16] MED LIST changes: +ALBU8.5H INH; +BISO2.5T4 PO; +CALCCHW4 PO; +FLUC150T PO; +MIRA3350 PO; +MM S100C PO; -OMEP20CA3 PO; +OMEP20CA4 PO; +PROB1CAP10 PO; -STOO100C PO; +TIZA4TAB4 PO
[2019-02-16 19:09] LABS: APPEARANCE, URINE TURBID (CLEAR); BACTERIA, URINE AUTO 2+ (NEGATIVE); BILIRUBIN, URINE AUTO NEGATIVE (NEGATIVE); BLOOD, URINE BLOOD 2+ (NEGATIVE); COLOR, URINE AMBER (YELLOW); GLUCOSE, URINE (UA) AUTO NEGATIVE (NEGATIVE); KETONE, URINE AUTO NEGATIVE (NEGATIVE); LEUKOCYTE ESTERASE, URINE AUTO 3+ (NEGATIVE); MUCUS, URINE SMALL (NEGATIVE); NITRITE, URINE AUTO NEGATIVE (NEGATIVE); PROTEIN, URINE AUTO 3+ mg/dL (NEGATIVE); RBC, URINE AUTO 61 /HPF (0-3); SPECIFIC GRAVITY URINE AUTO 1.019 (1.002-1.035); SQUAMOUS EPITHELIAL CELL UR AU 3 /HPF (0-6); WBC, URINE AUTO TNTC /HPF (0-3)
== END ==
LOC: M LAB REF 17:30
PROVIDERS: ATTEND Obstetrics & Gynecology
DX: N39.41 Urge incontinence (principal); N32.81 Overactive bladder

== ENCOUNTER → 2019-03-07 | Outpatient (REF) | payer MEDICARE ==
[2019-03-07 17:25] LABS: APPEARANCE, URINE CLEAR (CLEAR); BACTERIA, URINE AUTO NEGATIVE (NEGATIVE); BILIRUBIN, URINE AUTO NEGATIVE (NEGATIVE); BLOOD, URINE BLOOD NEGATIVE (NEGATIVE); COLOR, URINE YELLOW (YELLOW); GLUCOSE, URINE (UA) AUTO NEGATIVE (NEGATIVE); KETONE, URINE AUTO NEGATIVE (NEGATIVE); LEUKOCYTE ESTERASE, URINE AUTO NEGATIVE (NEGATIVE); NITRITE, URINE AUTO NEGATIVE (NEGATIVE); PROTEIN, URINE AUTO NEGATIVE (NEGATIVE); RBC, URINE AUTO 2 /HPF (0-3); SPECIFIC GRAVITY URINE AUTO 1.013 (1.002-1.035); SQUAMOUS EPITHELIAL CELL UR AU 0 /HPF (0-6); UROBILINOGEN, URINE AUTO 0.2 mg/dL (0.0-2.0); WBC, URINE AUTO 2 /HPF (0-3)
== END ==
LOC: M LAB REF 16:26
PROVIDERS: ATTEND Obstetrics & Gynecology
DX: N32.81 Overactive bladder (principal); N39.41 Urge incontinence

== ENCOUNTER 2019-04-07 12:23 | Day surgery (SDC) | payer MEDICARE ==
[~2019-04-07] VITALS: Ht 157.5 cm; Wt 104.7 kg
[2019-04-07] MEDS ORDERED: PROPOFOL 200 MG/20 ML VIAL As Ordered ONE (15:15)
[2019-04-07] MEDS ORDERED: LIDOCAINE 2% INJ 100 MG/5 ML SDV (FOR ANES.) As Ordered ONE (15:15)
--- NOTE | 2019-04-07 15:41 | ROOR ---
Patient Name: Lupe Wang Procedure Date: 04/07/2019 3:24 PM Date of : 1950 Age: 68 Room: [facility] Gender: Female Note Status: Finalized Procedure: Colonoscopy Indications: High risk colon cancer surveillance: Personal history of colonic polyps Providers: Jordan Nash Jr, MD Referring MD: Ty Nelson MD Requesting Provider: Medicines: Propofol per Anesthesia Complications: No immediate complications. Procedure: Pre-Anesthesia Assessment: - Prior to the procedure, a History and Physical was performed, and patient medications and allergies were reviewed. The patient is competent. The risks and benefits of the procedure and the sedation options and risks were discussed with the patient. All questions were answered and informed consent was obtained. Patient identification and proposed procedure were verified by the physician and the nurse in the pre-procedure area and in the procedure room. Mental Status Examination: alert and oriented. Airway Examination: normal oropharyngeal airway and neck mobility. Respiratory Examination: clear to auscultation. CV Examination: normal. ASA Grade Assessment: II - A patient with mild systemic disease. After reviewing the risks and benefits, the patient was deemed in satisfactory condition to undergo the procedure. The anesthesia plan was to use moderate sedation / analgesia (conscious sedation). Immediately prior to administration of medications, the patient was re-assessed for adequacy to receive sedatives. The heart rate, respiratory rate, oxygen saturations, blood pressure, adequacy of pulmonary ventilation, and response to care were monitored throughout the procedure. The physical status of the patient was re-assessed after the procedure. The Colonoscope was introduced through the anus and advanced to the cecum, identified by appendiceal orifice and ileocecal valve. The colonoscopy was performed without difficulty. The patient tolerated the procedure well. The quality of the bowel preparation was poor. Findings: The rectum, descending colon, transverse colon, ascending colon, cecum, appendiceal orifice, ileocecal valve and anastomosis appeared normal. Impression: - Preparation of the colon was poor. - The rectum, descending colon, transverse colon, ascending colon, cecum, appendiceal orifice, ileocecal valve and colonic anastomosis are normal. - No specimens collected. Recommendation: - Discharge patient to home (ambulatory). - Repeat colonoscopy in 10 years for screening purposes. Jordan Nash MD Jordan Nash Jr, MD 04/07/2019 3:40:35 PM Electronically signed by Jordan Nash Jr, MD Number of Addenda: 0 Note Initiated On: 04/07/2019 3:24 PM Estimated Blood Loss: Estimated blood loss: none.
[2019-04-07 16:06] VITALS: BP 141/75
== END 2019-04-07 16:08 | disposition home or self-care (01) ==
LOC: M OPP 12:23
PROVIDERS: ATTEND Surgery
DX: Z12.11 Encounter for screening for malignant neoplasm of colon (principal); Z86.010 Personal history of colon polyps; F17.210 Nicotine dependence, cigarettes, uncomplicated; G47.30 Sleep apnea, unspecified; Z79.82 Long term (current) use of aspirin; Z79.899 Other long term (current) drug therapy; Z91.041 Radiographic dye allergy status; Z88.1 Allergy status to other antibiotic agents; Z88.0 Allergy status to penicillin; Z88.8 Allergy status to other drugs, medicaments and biological substances; Z88.5 Allergy status to narcotic agent

== ENCOUNTER → 2019-09-23 | Outpatient (REF) | payer MEDICARE ==
[~2019-09-23] MED LIST changes: +BISO1TAB17 PO; -BISO2.5T4 PO; -MONT10TA2 PO; +MONT10TA4 PO; +OMEP1CAP73 PO; -OMEP20CA4 PO
== END ==
LOC: M LAB REF 12:51
PROVIDERS: ATTEND Obstetrics & Gynecology
DX: N32.81 Overactive bladder (principal); Z79.51 Long term (current) use of inhaled steroids; Z79.899 Other long term (current) drug therapy; Z79.82 Long term (current) use of aspirin

== ENCOUNTER 2019-09-24 18:22 | Emergency (ER) | payer MEDICARE ==
[~2019-09-24] VITALS: Ht 157.5 cm; Wt 110.9 kg
[2019-09-24] MEDS ORDERED: GLYCERIN ADULT SUPP PR ONE (19:15)
[2019-09-24 20:49] VITALS: BP 172/84
[2019-09-24] MEDS ORDERED: MAGNESIUM CITRATE 300 ML BTL PO ONE (21:30)
--- NOTE | 2019-09-25 08:49 | REP ---
At abdominal series four views including upright PA chest, upright abdomen and two supine views of the abdomen: PA chest: Comparison is 09/26/2018. The lung marrero are clear. Cardiac size is normal. The kit, mediastinum, skeletal structures are unremarkable. There is no free subdiaphragmatic air. There is no interval change. Impression: Negative PA chest. Abdomen, supine upright views: There are occasional air-fluid levels in nondistended bowel loops. The bowel gas pattern is nonspecific. There are surgical clips inferiorly in the abdomen. There are no calcifications. There is a faintly visible surgical staple line in the midline of the pelvis. There is degenerative disc disease in the lumbar spine. The skeletal structures and soft tissues otherwise are unremarkable. Impression: Nonspecific bowel gas pattern. Postsurgical changes as described. Electronically Signed by Xavi Collins MD 09/25/2019 08:40 A
== END 2019-09-24 21:26 | disposition home or self-care (01) ==
LOC: M ED 18:22
DX: K59.00 Constipation, unspecified (principal); J44.9 Chronic obstructive pulmonary disease, unspecified; I10 Essential (primary) hypertension; Z79.899 Other long term (current) drug therapy; Z79.82 Long term (current) use of aspirin; Z88.0 Allergy status to penicillin; Z88.1 Allergy status to other antibiotic agents; Z88.8 Allergy status to other drugs, medicaments and biological substances; Z91.041 Radiographic dye allergy status; F17.210 Nicotine dependence, cigarettes, uncomplicated

== ENCOUNTER → 2020-03-21 | Outpatient (CLI) | payer MEDICARE ==
[~2020-03-21] MED LIST changes: +ASPI-546 PO; -ASPI1TAB15 PO; +OLOP2.5D3 OU; -PATA0.2S OU
[2020-03-21 15:03] LABS: HEMATOCRIT 46.6 % (36.0-47.0); HEMOGLOBIN 14.9 g/dl (12.0-15.5); MEAN CORPUSCULAR HEMOGLOBIN 28.1 pg (27.0-33.0); MEAN CORPUSCULAR VOLUME 87.9 fl (80.0-96.0); PLATELET COUNT, AUTOMATED 261 10^3/uL (150-450); WHITE BLOOD COUNT 10.8 10^3/uL (4.0-10.0)
[2020-03-21 16:28] LABS: CALCIUM LEVEL 9.2 MG/DL (8.8-10.2); CHOLESTEROL RISK RATIO 5.027 (<5); CREATININE FOR GFR 0.99 MG/DL (0.55-1.30); GLOMERULAR FILTRATION RATE 58.9 (>39); POTASSIUM SERUM 3.2 MEQ/L (3.5-5.1)
== END ==
LOC: M LAB 14:29
PROVIDERS: ATTEND Physician Assistant
DX: I11.9 Hypertensive heart disease without heart failure (principal)

== ENCOUNTER → 2020-03-24 | Outpatient (REF) | payer MEDICARE | LOC: M LAB REF 14:09 | PROVIDERS: ATTEND Physician Assistant Medical | DX: Z01.812 Encounter for preprocedural laboratory examination (principal); Z20.828 Contact with and (suspected) exposure to other viral communicable diseases ==

== ENCOUNTER → 2020-05-29 | Outpatient (CLI) | payer MEDICARE ==
[2020-05-29 14:00] LABS: BLOOD UREA NITROGEN 13 MG/DL (7-18); CARBON DIOXIDE LEVEL 33 MEQ/L (21-32); CHLORIDE LEVEL 107 MEQ/L (98-107); CREATININE FOR GFR 0.92 MG/DL (0.55-1.30); GLOMERULAR FILTRATION RATE > 60.0 (>39); GLUCOSE, FASTING 71 MG/DL (70-100); POTASSIUM SERUM 3.8 MEQ/L (3.5-5.1); SODIUM LEVEL 146 MEQ/L (136-145)
== END ==
LOC: M LAB 12:13
PROVIDERS: ATTEND Physician Assistant
DX: E87.6 Hypokalemia (principal)

== ENCOUNTER → 2020-05-29 | Outpatient (CLI) | payer MEDICARE ==
--- NOTE | 2020-05-29 16:12 | REP ---
INDICATION: PAIN COMPARISON: None. TECHNIQUE: AP and lateral obtained. FINDINGS: Three views of the right upper arm are performed. There is moderate narrowing and spurring at the acromioclavicular joint. There is no fracture or dislocation. There is mild spurring of the proximal ulna. I see no other significant findings. IMPRESSION: No fracture or dislocation. Degenerative changes. <Electronically signed by Xavi Eason > 05/29/20 [id number]
== END ==
LOC: M WUC 14:19
PROVIDERS: ATTEND Nurse Practitioner Family
DX: M25.711 Osteophyte, right shoulder (principal); M79.621 Pain in right upper arm

== ENCOUNTER 2020-08-19 09:28 | Emergency (ER) | payer MEDICARE ==
[~2020-08-19] VITALS: Ht 157.5 cm; Wt 109.3 kg
[~2020-08-19 09:28] MED LIST changes: +METH-1164 PO; -METH1TAB40 PO; +MONT10TA10 PO; -MONT10TA4 PO
--- OUTSIDE RECORDS SUMMARY | 2020-08-19 09:35 | CCD | Continuity of Care Document ---
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 Organization Unknown Address [address] [place] [id number] Phone [phone] Care Team Providers Care Spray Machine Loader Name Role Phone Ty Nelson MD AUT [phone] Problems Description No Information Available Social History Type Date Description Comments Sex Unknown ETOH Use Occasionally consumes alcohol Tobacco Use Start: Unknown Patient is a current smoker, smo kes every day 1PPD Smoking Status Reviewed: 05/29/20 Patient is a current smoker, smokes every day 1PPD Allergies, Adverse Reactions, Alerts Active Allergies Reaction Severity Comments Date Doxycycline Hyclate 05/29/20 20 IV Contrast 05/29/2020 Avelox Hives 05/29/2020 Rifampin Abdominal swelling 0 Restoril Lose Mentally 05/29/2020 Ultram 05/29/2020 Ipratropium Hurts Lungs 05/29/2020 Vicodin Nausea 05/29/2020 Levocetirizine Head itches 05/29/2020 Bupropion HCL ER// Bad Dreams 05/29/20 20 Latanoprost 05/29/2020 Cefuroxime 05/29/2020 Bactrim DS 05/29/2020 Medications Active Medications SIG Qnty Indications Ordering Provide r Date Prednisone 10mg Tablets 1 tab by mouth twice a day x4 days 8tabs M79.621 Shen Art JR., M.D. 05/29/2020 2L Oxygen Via NC Unknown Tizanidine HCL 2mg Tablets 1 tab up to every 8 hours as needed muscle tension pain Unkn own Xanax 0.5mg Tablets 1/2 - 1 tab by mouth two times a day as needed anxiety Unknown Ventolin HFA 108(90Base) mcg/Act A erosol 2 puffs by mouth inhaled every 4-6 hours as needed Unknown Pataday 0.1% Solution Unknown Omeprazole 20mg Capsules DR 1 tab by mouth twice a day x14 days Unknown Probiotic Capsules Unknown Calcium + D 500-1000 -40ir-Gar-tsc Chewtabs Unknown Montelukast Sodium 10mg Tablets Unknown Amitriptyline HCL 50mg Tablets qd Unknown Celebrex 200mg Capsules qd Unknown Stool Softener 100mg Capsules Unknown Furosemide 20mg Tablets take one tablet daily for five days Unknown Bisoprolol Fumarate/Hydrochlorothiazide 2.5-6.25mg Tablets qd Unknown Aspirin 81 Low Dose 81mg Chewtabs Unknown Incruse Ellipta 62.5mcg/Inh Aeroso l one puff daily Unknown Symbicort 80-4.5mcg/Act Aerosol Unknown Immunizations Description No Information Available Vital Signs Date Vital Result Comment 05/29/2020 1:39pm BP Systolic 136 mmHg BP Diastolic 88 mmHg Heart Rate 83 /min Respiratory Rate 16 /min O2 % BldC Oximetry 92 % Body Temperature 98.0 F Weight 235.00 lb Height 63 inches 5'3" BMI (Body Mass Index) 41.6 kg/m2 Pain Level 3 Results Description No Information Available Procedures Description No Information Available Medical Devices Description No Information Available Encounters Description No Information Available Assessments Date Code Description Provider 05/29/2020 M79.621 Pain in right upper arm Lucie whitley NP Plan of Treatment 05/29/2020 - Lucie Benavides NP* M79.621 Pain in right upper arm* New Medication:* Prednisone 10 mg - 1 tab by mouth twice a day x4 days * Comments:* wet read xray: pending radiologist reportshort course steroids Functional Status Description No Information Available Mental Status Description No Information Available Referrals Description No Information Available
--- OUTSIDE RECORDS SUMMARY | 2020-08-19 09:35 | CCD | Continuity of Care Document ---
Author Author Lupe BENAVIDES BUS GREASER Organization Unknown Address [address] [place] [id number] Phone [phone] Care Team Providers Care Spar Finisher Name Role Phone Ty Nelson MD AUT [phone] Problems Description No Information Available Social History [...] Probiotic Capsules Unknown Calcium + D 500-1000 -04us-Jwa-aiv Chewtabs Unknown Montelukast Sodium 10mg Tablets Unknown [...] Medical Devices Description No Information Available Encounters Type Date Location Provider Dx Diagnosis Office Visit 05/29/2020 2:00p Main Office Lucie Benavides NP M79. 621 Pain in right upper arm Assessments Date Code Description Provider 05/29/2020 M79.621 Pain in right upper arm Lucie whitley NP Plan of Treatment 05/29/2020 - Lucie Benavides NP* M79.621 Pain in right upper arm* New Medication:* Prednisone 10 mg - 1 tab by mouth twice a day x4 days * Comments:* wet read xray: no acute fracture, mild degenerative changes appreciatedpending radiologist reportshort course steroidsmoist heatROM exercisesf/u PRN or with PCP, if sx persist will refer to NCOGpatient v/u & agrees to plan Functional Status Description No Information Available Mental Status Description No Information Available Referrals Description No Information Available
--- OUTSIDE RECORDS SUMMARY | 2020-08-19 09:35 | CCD ---
Author Author [facility] Organization [facility] Address Unknown Phone Unavailable Care Team Providers Care Review Scheduling Coordinator Name Role Phone Sherron Haque Unavailable Unavailable PROBLEMS Type Condition ICD9-CM Code [id number] Code Onset Dates Condition S tatus SNOMED Code Notes Problem Chronic allergic rhinitis J30.9 Active 976672 04 Problem Nicotine dependence, cigarettes, uncomplicated F17 .210 Active 70243133 ALLERGIES Allergen (clinical drug ingredient) Drug/Non Drug Allergy do cumented on EMR Reaction Allergy Type Onset Date Status temazepam Restoril(NDC Code:[address]-57) Unknown Drug Allergy Active meloxicam Mobic(NDC Code:[address]-26) renal failure Drug Allergy Active bupropion BuPROPion HCl(NDC Code:[address]-90) hyper and bad dreams Drug Allergy Active Vicodin upset stomach Drug Allergy Active ipratropium Ipratropium [place](NDC Code:[address]-32) hurt s lungs Drug Allergy Active venlafaxine Effexor XR(NDC Code:[address]-87) Unknown Drug Allerg y Active sulfamethoxazole / trimethoprim Bactrim(NDC Code:[address]-86) Unknown Drug Allergy Active azithromycin Zithromax(NDC Code:[address]-58) abd swells Drug Allerg y Active Ultram ER Unknown Drug Allergy Active IV dyes hives Non Drug Allergy Active rifampin Rifampin(NDC Code:[address]-92) abd swells Drug Allergy Active amoxicillin / clavulanate Augmentin(NDC Code:[address]-92) Unkn own Drug Allergy Active moxifloxacin Avelox hives Drug Allergy Active ENCOUNTERS from 1950 to 2020-06-22 Encounter Location Date Provider [facility] [address] [place] [id number] No v2019 Sherron Haque Chronic allergic rhinitis J30.9 and Beau sanchez dependence, cigarettes, uncomplicated F17.210 IMMUNIZATIONS No Information SOCIAL HISTORY Tobacco Use: Social History Observation Description Date Details (start date - stop date) Current Smoker Sex Assigned At : Social History Observation Description Sex Assigned At Unknown Alcohol Screen Question Answer Notes Did you have a drink containing alcohol in the past year? No Points 0 Interpretation Negative Tobacco Use/Smoking Question Answer Notes Are you a current smoker How many cigarettes a day do you smoke? 21- How often do you smoke cigarettes? every day REASON FOR REFERRAL No Information VITAL SIGNS Weight 236 lbs Jun, Temperature 97.9 degrees Fahrenheit Jun, Heart Rate 77 /min Jun, Respiratory Rate 22 /min Jun, Oximetry 93 % Jun, Blood pressure systolic 124 mmHg Jun, Blood pressure diastolic 72 mmHg Jun, MEDICATIONS Medication SIG (Take, Route, Frequency, Duration) Notes Start Da te End Date Status Singulair 10 MG 1 tablet Orally Once a day for 30 day(s) Active Xanax 0.5 MG 1 tablet Orally Twice a day Active Furosemide 20 MG 1 tablet Orally Once a day for 30 day(s) Active Celebrex 200 MG 1 capsule with food Orally Once a day for 30 day(s) Active Pataday 0.2 % 1 drop into affected eye Ophthalmic Once a day Active Fluoxetine HCl 20 MG 1 capsule Orally Once a day for 30 day(s) Active MYRBETRIQ 25 MG ONCE DAILY PO Active Potassium Chloride ER 20 MEQ 1 tablet with food Orally Once a day for 30 day(s) Active Bisoprolol-Hydrochlorothiazide 2.5-6.25 MG 1 tablet Or ally Once a day for 30 day(s) Active Amitriptyline HCl 25 MG 1 tablet at bedtime Orally Once a day Active Loratadine 10 MG 1 tablet Orally Once a day for 30 day(s) Active MiraLax 17 GM 1 packet mixed with 8 ounces of fluid Orally Once a day for 30 day(s) Active Calcium 600-400 MG-UNIT 1 tablet with a meal Orally twice a day Active Incruse Ellipta 62.5 MCG/INH 1 puff Inhalation Once a day Active Ventolin HFA 108 (90 Base) MCG/ACT 1 puff as needed Inhalation ever y 4 hrs Active Aspirin EC 81 MG 1 tablet Orally Once a day for 30 day(s) Active Albuterol Sulfate 1.25 MG/3ML 3 ml as needed Inhalation every 8 hrs Active Symbicort 160-4.5 MCG/ACT 2 puffs Inhalation Twice a day Active Triamcinolone Acetonide 0.025 % 1 application External ly Once a day for 7 day(s) Active Omeprazole 20 MG 1 capsule 30 minutes before morning meal Orally Once a day for 30 day(s) Active Tizanidine HCl 4 MG 1 tablet as needed Orally Three times a day Active PROCEDURES No Information RESULTS No Results REASON FOR VISIT chronic sinusitis MEDICAL (GENERAL) HISTORY Type Description Date Medical History anxiety/depression Medical History COPD Medical History hx of MRSA wound infection Medical History htn Medical History cor pulmonale Medical History obesity Medical History AILIN Medical History polyarthritis Medical History diverticulosis Medical History abnormal ekg Surgical History hysterectomy Surgical History cholecystectomy Surgical History trigger finger Surgical History vein surgery on leg Surgical History diverticulitis with rupture/colectomy Surgical History hernia repair Surgical History tonsillectomy Surgical History left eye surgery Hospitalization History surgical needs Hospitalization History pneumonia and bronchitis Goals Section No Information Health Concerns No Information MEDICAL EQUIPMENT No Information MENTAL STATUS No Information FUNCTIONAL STATUS No Information ASSESSMENTS Encounter Date Diagnosis Assessment Notes Treatment Notes Treatm ent Clinical Notes Jun, Chronic allergic rhinitis (ICD-10 - J30.9) Pt with no signs of acute sinusitis, discussed chronic sinusitis likely related to chronic Allergic Rhinitis and recommend allergy testing and referral to Immunology for possible start of Immunotherapy treatments as Rhinitis well managed in childhood with Allergy shots. Smoking cessations strongly encouraged as well. Pt v/u and agreeable. Jun, Nicotine dependence, cigarettes, uncompl icated (ICD-10 - F17.210) PLAN OF TREATMENT Treatment Notes Assessment Notes Clinical Notes Chronic allergic rhinitis Pt with no signs of acute si nusitis, discussed chronic sinusitis likely related to chronic Allergic Rhinitis and recommend allergy testing and referral to Immunology for possible start of Immunotherapy treatments as Rhinitis well managed in childhood with Allergy shots. Smoking cessations strongly encouraged as well. Pt v/u and agreeable. Next Appt Details prn Reason: Insurance Providers Payer Name Payer Address Payer Phone Insured Name Patient Relati onship to Insured Coverage Start Date Coverage End Date [facility] - MEDICAID ANCILLARY C [facility] APG BILL [facility] [address] [place] [id number] Lupe Wang [facility] [employer] [facility] [address] [facility] [phone] Lupe Wang self
--- OUTSIDE RECORDS SUMMARY | 2020-08-19 09:35 | CCD | Continuity of Care Document ---
Author Author Lupe CLARK PA Organization Unknown Address [address], [place] [address] Phone [phone] Care Team Providers Care Leather Belt Maker Name Role Phone Ty Nelson MD AUTM [phone] Kaleb Warren MD AUTM [phone] Problems Active Problems Provider Date Dyspnea Neal Doss MD Onset: 05/23/2016 Precordial pain Neal Doss MD Onset: 05/23/2016 Electrocardiogram abnormal Neal Doss MD Onset: 2015 Essential hypertension Neal Doss MD Onset: 05/23/2016 Disturbance in sleep behavior Neal Doss MD Onset: Body mass index 40+ - severely obese Neal Doss MD Ons et: 05/23/2016 Heart failure Neal Doss MD Onset: 05/23/2016 Tobacco user Neal Doss MD Onset: 05/23/2016 Chronic pulmonary heart disease Neal Doss MD Onset: 1 09/08/2015 Hypertensive heart disease without congestive heart failure Neal Doss MD Onset: 07/08/2016 Obstructive sleep apnea syndrome Neal Doss MD Onset: 10/10/2016 Dietary management surveillance Neal Doss MD Onset: 0 01/16/2017 Dizziness and giddiness Neal Doss MD Onset: 7 Preoperative cardiovascular examination Neal Doss MD Onset: 07/20/2017 Mitral valve disorder Neal Doss MD Onset: 08/12/2018 Edema Neal Doss MD Onset: 08/12/2018 Social History Type Date Description Comments Sex Unknown ETOH Use Consumes Alcohol 1 drink very oc casionally Tobacco Use Start: Unknown Patient is a current smoker, smo kes every day up to 1.5 ppd; Starting at age 28 Smoking Status Reviewed: 02/15/20 Patient is a current smoker, smokes every day up to 1.5 ppd; Starting at age 28 Exercise Type/Frequency Does housework 5 times a week 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 Exercise Type/Frequency Does aerobics sporadical ly Exercise Limitations Shortness Of Breath Exercise Limitations Back Pain Allergies, Adverse Reactions, Alerts Active Allergies Reaction Severity Comments Date Restoril "lose it mentally" 6 IVP Dye hives 03/09/2016 Avelox hives 03/09/2016 Ultram difficulty breathing 016 Effexor difficulty breathing 016 Rifampin abdominal swelling 6 Ipratropium "hurts lungs" 03/09/2016 Hydrocodone nausea 03/09/2016 Bupropion bad dreams 03/09/2016 Azithromycin abdominal swelling 6 Xyzal head itches 03/09/2016 Latanoprost burning in eyes 03/09/2016 Marinol burning eyes 03/09/2016 Sulfamethoxazole / Trimethoprim swellling 07/20/2017 Vicodin N/V 01/25/2018 Cefuroxime 01/25/2018 Medications Active Medications SIG Qnty Indications Ordering Provide r Date Potassium Chloride ER 20Meq Tablet s ER 1 by mouth every day 90tabs Yoni Morrison MD 03/30/20 Nicoderm CQ 21mg/24HR Patches 24HR apply one patch daily for 2-6 weeks then reduce to 14mg patches Ty Nelson MD 02/14/2020 Tizanidine HCL 2mg Capsules 1 by mouth twice a day as needed Unknown 04/24/2019 Myrbetriq 25mg Tablets ER 24HR 1 by mouth every day Unknown 04/24/2019 Patanol 0.1% Solution 1 drop both eyes as needed Unknown 07/19/2017 Probiotic Capsules 3 by mouth every day Unknown 07/19/2017 Flonase Allergy Relief 50mcg/Act Suspension 1 inhalation each nostril daily 15.800ml Neal marie MD 01/22/2017 Montelukast Sodium 10mg Tablets 1 by mouth every day Unknown 01/15/2017 Incruse Ellipta 62.5mcg/Inh Aeroso l 1 puff daily Ty Nelson MD 05/22/2016 Furosemide 20mg Tablets 1 by mouth every day 90tabs Neal Doss MD 05/22/[address] 1 by mouth every day Ty Nelson MD 05/22/2016 Celebrex 200mg Capsules 1 by mouth every day Ty Nelson MD 05/22/2016 Symbicort 80-4.5mcg/Act Aerosol 2 puff twice a day Ty Nelson MD 03/09/2016 Aspir-[address] 1 by mouth every day Ty Nelson MD 03/09/2016 Bisoprolol Fumarate/Hydrochlorothiazide 2.5-6.25mg Tablets 1 by mouth every day Ty Nelson MD 03/09/2016 Calcium + D3 [id number] Tablet s 1 by mouth once every day Unknown 03/09/2016 Amitriptyline HCL 50mg Tablets 1 by mouth every day Ty Nelson MD 03/09/2016 Stool Softener 100mg Capsules 1 by mouth once a day as needed Unknown 03/09/2016 Miralax 3350NF Powder 1 tablespoon every evening, as directed, as needed Unknown 03/09/2016 Xanax 0.5mg Tablets 1 by mouth three times a day as needed Ty Nelson MD 03/09/2016 Ventolin HFA 108(90Base) mcg/Act A erosol 2 puffs as needed Ty Nelson MD 03/09/2016 Immunizations Description No Information Available Vital Signs Date Vital Result Comment 02/15/2020 12:30pm Weight 239.00 lb Home Weight 234lb Height 63 inches 5'3" BMI (Body Mass Index) 42.3 kg/m2 Heart Rate 82 /min BP Systolic Sitting 126 mmHg large cuff, Ra BP Diastolic Sitting 86 mmHg large cuff, Ra 04/25/2019 2:49pm Weight 237.00 lb Home Weight 238lb Height 63 inches 5'3" BMI (Body Mass Index) 42.0 kg/m2 Heart Rate 79 /min BP Systolic Sitting 130 mmHg Large adult cuff/LA BP Diastolic Sitting 82 mmHg Large adult cuff/LA Results Test Acquired Date Facility Test Result H/L Range Note BMP 05/29/2020 [facility] nter [phone] Glucose, Fasting 71 mg/dL Normal 70-100 Blood Urea Nitrogen 13 mg/dL Normal 7-18 Creatinine For GFR 0.92 mg/dL Normal 0.55-1.30 Glomerular Filtration Rate > 60.0 Normal >39 1 Sodium Level 146 mEq/L High 136-145 Potassium Serum 3.8 mEq/L Normal 3.5-5.1 Chloride Level 107 mEq/L Normal 98-107 Carbon Dioxide Level 33 mEq/L High 21-32 Anion Gap 6 mEq/L Low 8-16 Calcium Level 9.0 mg/dL Normal 8.8-10.2 BMP 03/21/2020 [facility] nter [phone] Glucose, Fasting 116 mg/dL High 70-100 Blood Urea Nitrogen 15 mg/dL Normal 7-18 Creatinine For GFR 0.99 mg/dL Normal 0.55-1.30 Glomerular Filtration Rate 58.9 Normal >39 2 Sodium Level 143 mEq/L Normal 136-145 Potassium Serum 3.2 mEq/L Low 3.5-5.1 Chloride Level 107 mEq/L Normal 98-107 Carbon Dioxide Level 34 mEq/L High 21-32 Anion Gap 2 mEq/L Low 8-16 Calcium Level 9.2 mg/dL Normal 8.8-10.2 CBC No Diff 03/21/2020 [facility] nter [phone] White Blood Count 10.8 10 High 4.0-10.0 Red Blood Count 5.30 10 Normal 4.00-5.40 Hemoglobin 14.9 g/dL Normal 12.0-15.5 Hematocrit 46.6 % Normal 36.0-47.0 Mean Corpuscular Volume 87.9 fl Normal 80.0-96.0 Mean Corpuscular Hemoglobin 28.1 pg Normal 27.0-33.0 Mean Corpuscular HGB Conc 32.0 g/dL Normal 32.0-36.5 Red Cell Distribution Width 15.2 % High 11.5-14.5 Platelet Count, Automated 261 10 Normal 150-450 Nucleated Red Blood Cell % 0.0 % Normal 0-0 Lipid Panel 03/21/2020 [facility] nter [phone] Triglycerides Level 106 mg/dL Normal <150 Cholesterol Level 186 mg/dL Normal <200 HDL Cholesterol 37 mg/dL Low >40 LDL Cholesterol 128 mg/dL High <100 Non-HDL-C 149 mg/dL Normal Cholesterol Risk Ratio 5.027 High <5 1 Units are mL/min/1.73 m2 Chronic Kidney Disease Staging per NKF: Stage I & II GFR >=60 Normal to Mildly Decreased Stage III GFR 30-59 Moderately Decreased Stage IV GFR 15-29 Severely Decreased Stage V GFR <15 Very Little GFR Left ESRD GFR <15 on GROUND OPERATIONS SUPERVISOR 2 Units are mL/min/1.73 m2 Chronic Kidney Disease Staging per NKF: Stage I & II GFR >=60 Normal to Mildly Decreased Stage III GFR 30-59 Moderately Decreased Stage IV GFR 15-29 Severely Decreased Stage V GFR <15 Very Little GFR Left ESRD GFR <15 on GROUND OPERATIONS SUPERVISOR Procedures Date Code Description Status 02/15/2020 31710 ECG 12-Lead Completed Medical Devices Description No Information Available Encounters Type Date Location Provider Dx Diagnosis Office Visit 02/15/2020 12:15p Main Office JOSE Olmos I11.9 Hypertensive heart disease without heart failure R07.2 Precordial pain I34.0 Nonrheumatic mitral (valve) insufficiency R94.31 Abnormal electrocardiogram [ ECG] [EKG] R60.0 Localized edema Z71.3 Dietary counseling and surve illance Assessments Date Code Description Provider 02/15/2020 I11.9 Hypertensive heart disease witho ut heart failure JOSE Olmos 02/15/2020 R07.2 Precordial pain JOSE Olmos 02/15/2020 I34.0 Nonrheumatic mitral (valve) insu fficiency JOSE Olmos 02/15/2020 R94.31 Abnormal electrocardiogram [ECG] [EKG] JOSE Olmos 02/15/2020 R60.0 Localized edema JOSE Olmos 02/15/2020 Z71.3 Dietary counseling and surveilla nce JOSE Olmos Plan of Treatment Future Appointment(s):* 02/14/2021 1:00 pm - JOSE Olmos at Main Office 02/15/2020 - JOSE Olmos* I11.9 Hypertensive heart disease without heart failure* Recommendations:* No medication changes were made today. Please obtain fasting lab work. * R07.2 Precordial pain* Recommendations:* No further workup required. * I34.0 Nonrheumatic mitral (valve) insufficiency * R94.31 Abnormal electrocardiogram [ECG] [EKG]* Recommendations:* No significant change. No further workup required. * R60.0 Localized edema * Z71.3 Dietary counseling and surveillance* Recommendations:* Recommend adopting a more whole foods, plant-based diet in addition to moderate exercise a minimum of 30 minutes 6 days a week. In order to optimize cardiovascular health please be conscious of processed foods, alcohol (no more than two dr inks a day for men and one drink a day for women), salt (<2000 mg/d), oils, saturated fat/animal products, and highly refined carbohydrates such as breads, pastas, and sweets. * All * Follow up:* Follow up in 12 months. Functional Status Functional Condition Comment Date Status Independent with all ADL's Activ e Mental Status Description No Information Available Referrals Description No Information Available
--- OUTSIDE RECORDS SUMMARY | 2020-08-19 09:35 | CCD ---
Author Author [facility] Organization [facility] Address Unknown Phone Unavailable Care Team Providers Care Manager Of It Name Role Phone Eleazar, L Mei PA Unavailable Unavailable Eleazar, L Mei PA Unavailable Unavailable Eleazar, L Mei PA Unavailable Unavailable Eleazar, L Mei PA Unavailable Unavailable Eleazar, L Mei PA Unavailable Unavailable Eleazar, L Mei PA Unavailable Unavailable Eleazar, L Mei PA Unavailable Unavailable Eleazar, L Mei PA Unavailable Unavailable Eleazar, L Mei PA Unavailable Unavailable Eleazar, L Mei PA Unavailable Unavailable Eleazar, L Mei PA Unavailable Unavailable Eleazar, L Mei PA Unavailable Unavailable Eleazar, L Mei PA Unavailable Unavailable Eleazar, L Mei PA Unavailable Unavailable Eleazar, L Mei PA Unavailable Unavailable Eleazar, L Mei PA Unavailable Unavailable Eleazar, L Mei PA Unavailable Unavailable Eleazar, L Mei PA Unavailable Unavailable Eleazar, L Mei PA Unavailable Unavailable Eleazar, L Mei PA Unavailable Unavailable Eleazar, L Mei PA Unavailable Unavailable Eleazar, L Mei PA Unavailable Unavailable Eleazar, L Mei PA Unavailable Unavailable Seema Haque MANAGER CREATIVE SERVICES-C Unavailable Unavailabl e GarlandSeemaP-C Unavailable Unavailabl e GarlandSeemaP-C Unavailable Unavailabl e GarlandSeema MANAGER CREATIVE SERVICES-C Unavailable Unavailabl e GarlandSeemayce MANAGER CREATIVE SERVICES-C Unavailable Unavailabl e Garland, Seema W Sherron MANAGER CREATIVE SERVICES-C Unavailable Unavailabl e Garland, Seema W Sherron MANAGER CREATIVE SERVICES-C Unavailable Unavailabl e Garland, Seema W Sherron MANAGER CREATIVE SERVICES-C Unavailable Unavailabl e Garland, Seema Goncalvese MANAGER CREATIVE SERVICES-C Unavailable Unavailabl e Garland, Seema W Sherron MANAGER CREATIVE SERVICES-C Unavailable Unavailabl e Garland, Seema W Sherron MANAGER CREATIVE SERVICES-C Unavailable Unavailabl e Garland, Seema W Sherron MANAGER CREATIVE SERVICES-C Unavailable Unavailabl e Garland, Sue W Sherron MANAGER CREATIVE SERVICES-C Unavailable Unavailabl e Garland, Seema W Sherron MANAGER CREATIVE SERVICES-C Unavailable Unavailabl e Garland, Seema W Sherron MANAGER CREATIVE SERVICES-C Unavailable Unavailabl e Garland, Seema W Sherron MANAGER CREATIVE SERVICES-C Unavailable Unavailabl e Garland, Seema W Sherron MANAGER CREATIVE SERVICES-C Unavailable Unavailabl e Garland, Seema Siu MANAGER CREATIVE SERVICES-C Unavailable Unavailabl e Garland, Sue W Sherron MANAGER CREATIVE SERVICES-C Unavailable Unavailabl e Garland, Seema W Sherron MANAGER CREATIVE SERVICES-C Unavailable Unavailabl e Garland, Seema W Sherron MANAGER CREATIVE SERVICES-C Unavailable Unavailabl e Garland, Seema W Sherron MANAGER CREATIVE SERVICES-C Unavailable Unavailabl e Garland, Sue W Sherron MANAGER CREATIVE SERVICES-C Unavailable Unavailabl e Garland, Reghailey W Sherron MANAGER CREATIVE SERVICES-C Unavailable Unavailabl e Garland, Reghailey W Sherron MANAGER CREATIVE SERVICES-C Unavailable Unavailabl e Garland, Regina W Sherron MANAGER CREATIVE SERVICES-C Unavailable Unavailabl e Garland, Reghailey W Sherron MANAGER CREATIVE SERVICES-C Unavailable Unavailabl e Garland, Reghailey W Sherron MANAGER CREATIVE SERVICES-C Unavailable Unavailabl e Garland, Reghailey W Sherron MANAGER CREATIVE SERVICES-C Unavailable Unavailabl e Garland, Reghailey W Sherron MANAGER CREATIVE SERVICES-C Unavailable Unavailabl e Garland, Regnilson Daniel Sherron MANAGER CREATIVE SERVICES-C Unavailable Unavailabl e GarlandSeema Sherron MANAGER CREATIVE SERVICES-C Unavailable Unavailabl e Martin, Lucie MANAGER PACKAGING Unavailable Unavailable Martin, Lucie MANAGER PACKAGING Unavailable Unavailable Martin, Lucie MANAGER PACKAGING Unavailable Unavailable Martin, Lucie MANAGER PACKAGING Unavailable Unavailable Martin, Lucie MANAGER PACKAGING Unavailable Unavailable Martin, Lucie MANAGER PACKAGING Unavailable Unavailable Martin, Lucie MANAGER PACKAGING Unavailable Unavailable Martin, Lucie MANAGER PACKAGING Unavailable Unavailable Martin, Lucie MANAGER PACKAGING Unavailable Unavailable Martin, Lucie MANAGER PACKAGING Unavailable Unavailable Martin, Lucie MANAGER PACKAGING Unavailable Unavailable Ruy Warren MD Unavailable Unavailable Ruy Warren MD Unavailable Unavailable Ruy Warren MD Unavailable Unavailable Ruy Warren MD Unavailable Unavailable Ruy Warren MD Unavailable Unavailable Ruy Warren MD Unavailable Unavailable Ruy Warren MD Unavailable Unavailable Ruy Warren MD Unavailable Unavailable Ruy Warren MD Unavailable Unavailable Ruy Warren MD Unavailable Unavailable Ruy Warren MD Unavailable Unavailable Ruy Warren MD Unavailable Unavailable Ruy Warren MD Unavailable Unavailable Ruy Warren MD Unavailable Unavailable Ruy Warren MD Unavailable Unavailable Ruy Warren MD Unavailable Unavailable Ruy Warren MD Unavailable Unavailable Ruy Warren MD Unavailable Unavailable Ruy Warren MD Unavailable Unavailable Ruy Warren MD Unavailable Unavailable Ruy Warren MD Unavailable Unavailable Ruy Warren MD Unavailable Unavailable Ruy Warren MD Unavailable Unavailable Ruy Warren MD Unavailable Unavailable Ruy Warren MD Unavailable Unavailable Ruy Warren MD Unavailable Unavailable Ruy Warren MD Unavailable Unavailable Ruy Warren MD Unavailable Unavailable Ruy Warren MD Unavailable Unavailable Ruy Warren MD Unavailable Unavailable Ruy Warren MD Unavailable Unavailable Ruy Warren MD Unavailable Unavailable Ruy Warren MD Unavailable Unavailable Ruy Warren MD Unavailable Unavailable Ruy Warren MD Unavailable Unavailable Ruy Warren MD Unavailable Unavailable Ruy Warren MD Unavailable Unavailable Ruy Warren MD Unavailable Unavailable Ruy Warren MD Unavailable Unavailable Ruy Warren MD Unavailable Unavailable Ruy Warren MD Unavailable Unavailable Ruy Warren MD Unavailable Unavailable Ruy Warren MD Unavailable Unavailable Ruy Warren MD Unavailable Unavailable Ruy Warren MD Unavailable Unavailable Ruy Warren MD Unavailable Unavailable Ruy Warren MD Unavailable Unavailable Ruy Warren MD Unavailable Unavailable Ruy Warren MD Unavailable Unavailable Ruy Warren MD Unavailable Unavailable Quin CORTEZ MD Unavailable Unavailable CORTEZ, L CHECO MD Unavailable Unavailable CORTEZ, L CHECO MD Unavailable Unavailable CORTEZ, L CHECO MD Unavailable Unavailable CORTEZ, L CHECO MD Unavailable Unavailable CORTEZ, L CHECO MD Unavailable Unavailable CORTEZ, L CHECO MD Unavailable Unavailable CORTEZ, L CHECO MD Unavailable Unavailable CORTEZ, L CHECO MD Unavailable Unavailable CORTEZ, L CHECO MD Unavailable Unavailable CORTEZ, L CHECO MD Unavailable Unavailable CORTEZ, L CHECO MD Unavailable Unavailable CORTEZ, L CHECO MD Unavailable Unavailable CORTEZ, L CHECO MD Unavailable Unavailable CORTEZ, L CHECO MD Unavailable Unavailable CORTEZ, L CHECO MD Unavailable Unavailable CORTEZ, L CHECO MD Unavailable Unavailable CORTEZ, L CHECO MD Unavailable Unavailable CORTEZ, L CHECO MD Unavailable Unavailable CORTEZ, L CHECO MD Unavailable Unavailable CORTEZ, L CHECO MD Unavailable Unavailable CORTEZ, L CHECO MD Unavailable Unavailable CORTEZ, L CHECO MD Unavailable Unavailable CORTEZ, L CHECO MD Unavailable Unavailable CORTEZ, L CHECO MD Unavailable Unavailable CORTEZ, L CHECO MD Unavailable Unavailable CORTEZ, L CHECO MD Unavailable Unavailable CORTEZ, L CHECO MD Unavailable Unavailable CORTEZ, L CHECO MD Unavailable Unavailable CORTEZ, L CHECO MD Unavailable Unavailable CORTEZ, L CHECO MD Unavailable Unavailable CORTEZ, L CHECO MD Unavailable Unavailable CORTEZ, L CHECO MD Unavailable Unavailable CORTEZ, L CHECO MD Unavailable Unavailable CORTEZ, L CHECO MD Unavailable Unavailable CORTEZ, L CHECO MD Unavailable Unavailable CORTEZ, L CHECO MD Unavailable Unavailable CORTEZ, L CHECO MD Unavailable Unavailable CORTEZ, L CHECO MD Unavailable Unavailable CORTEZ, L CHECO MD Unavailable Unavailable CORTEZ, L CHECO MD Unavailable Unavailable CORTEZ, L CHECO MD Unavailable Unavailable Re-disclosure Warning The records that you are about to access may contain information from federally-assisted alcohol or drug abuse programs. If such information is present, then the following federally mandated warning applies: This information has been disclosed to you from records protected by federal confidentiality rules (42 CFR part 2). The federal rules prohibit you from making any further disclosure of this information unless further disclosure is expressly permitted by the written consent of the person to whom it pertains or as otherwise permitted by 42 CFR part 2. A general authorization for the release of medical or other information is NOT sufficient for this purpose. The Federal rules restrict any use of the information to criminally investigate or prosecute any alcohol or drug abuse patient.The records that you are about to access may contain highly sensitive health information, the redisclosure of which is protected by Article 27-F of the [facility] Public Health law. If you continue you may have access to information: Regarding HIV / AIDS; Provided by facilities licensed or operated by the [facility] Office of Mental Health; or Provided by the [facility] Office for People With Developmental Disabilities. If such information is present, then the following [facility] mandated warning applies: This information has been disclosed to you from confidential records which are protected by state law. State law prohibits you from making any further disclosure of this information without the specific written consent of the person to whom it pertains, or as otherwise permitted by law. Any unauthorized further disclosure in violation of state law may result in a fine or mcc sentence or both. A general authorization for the release of medical or other information is NOT sufficient authorization for further disc losure. Family History Family Member Name Family Member Gender Family Member Status Date o f Status Description Data Source(s) Unknown Unknown Problem [facility] ([facility]) Unknown Unknown Problem [facility] Unknown Unknown Problem [facility] Unknown Male Problem [facility] ([facility] Unknown Female Problem [facility] ([facility]) Unknown Female Problem [facility] ([facility]) Encounters Encounter Providers Location Date Indications Data Source(s ) Outpatient Attender: Sehrron ROCHA-C 06/13/2020 09:55:0 0 AM EST [facility] Outpatient [facility] 06/13/2020 12:00:00 AM EST eCW1 ([facility]) Outpatient Attender: Lucie durbin 05/29/2020 02:00:00 PM EDT [facility] ([facility] Outpatient Attender: Mei GARCIA Main Office 02/15/2020 12:15:0 0 PM EDT [facility] ([facility]) Outpatient Referrer: Kaleb Warren MD 10/03/2019 03:16:0 0 PM [facility] Outpatient Attender: CHECO Anderson ham facer 02:00:00 PM EST [facility] ([facility]) Medications Medication Brand Name Start Date Product Form Dose Route Admi nistrative Instructions Pharmacy Instructions Status Indications Reaction Description Data Source(s) Fluoxetine 20 MG Oral Capsule [Prozac] Prozac 06/03/2020 12:00:00 AM EDT ORAL active [facility] ([facility]) Prednisone 10 MG Oral Tablet Prednisone 05/29/2020 12:00:00 AM EDT ORAL active MED[facility] ([facility]) Potassium Chloride 20 MEQ Extended Release Oral Tablet Potas sium Chloride ER 03/30/2020 12:00:00 AM EDT ORAL active MED[facility] ([facility]) 24 HR Nicotine 0.875 MG/HR Transdermal Patch [Nicoderm C-Q] Nicoderm CQ 02/14/2020 12:00:00 AM EDT active [facility] ([facility]) Insurance Providers Payer name Policy type / Coverage type Policy ID Covered democrat ID Covered democrat's relationship to gonzalez Policy Gonzalez Plan Information AETNA MEDICARE [id number] SP MEBSS [id number] AETNA MEDICARE O [id number] S MEBSS [id number] AETNA [employer] [id number] S [id number] [id number] MEDICAID [id number] S [id number] AETNA MEDICARE [id number] SP MEBSS [id number] AETNA MEDICARE O [id number] S [id number] 2DR AETNA MEDICARE [id number] SP MEBSS [id number] Aetna Commercial [id number] Self [id number] Today's Options Medicare Commercial [id number] Self [id number] [place] Part B [id number] Self [id number] [facility] Health Maintenance Organization (HMO) [id number] S elf [id number] Aetna Medicare Medigap Part B [id number] Self [id number] AETNA MEDICARE [id number] SP MEBSS [id number] AETNA MEDICARE [id number] SP MEBPW 2DR MEDICAID [id number] SP [id number] AETNA MEDICARE [id number] SP [id number] 2DR Medicaid Medigap Part B [id number] Self [id number] Today's Options Ppo Commercial [id number] Self [id number] Medicaid Medigap Part B [id number] Self [id number] Today's Options Ppo Commercial [id number] Self [id number] Aetna Commercial [id number] Self [id number] Today's Options Medicare Commercial [id number] Self [id number] [place] [id number] Self [id number] [facility] Health Maintenance Organization (HMO) [id number] S elf [id number] Today's Options Medicare Commercial [id number] Self [id number] [place] [id number] Self [id number] [facility] Health Maintenance Organization (HMO) [id number] S elf [id number] [employer] [id number] S [id number] [id number] Medicaid Medigap Part B [id number] Self [id number] Today's Options Ppo Commercial [id number] Self [id number] Medicaid Medigap Part B [id number] Self [id number] Today's Options Ppo Commercial [id number] Self [id number] Aetna Commercial [id number] Self [id number] Medicaid Medigap Part B [id number] Self [id number] Today's Options Ppo Commercial [id number] Self [id number] Medicaid Medigap Part B [id number] Self [id number] Today's Options Ppo Commercial [id number] Self [id number] Aetna Commercial [id number] Self [id number] [place] [id number] Self [id number] [employer] [facility] [place] Commercial [id number] Self [id number] Aetna Medicare Commercial [id number] Self MEBP [id number] AETNA HEALTHCARE TX O [id number] S [id number] TODAYS OPTIONS/NICARAGUAN O [id number] O [id number] [place] [id number] Self [id number] [employer] [facility] [place] Commercial [id number] Self [id number] Aetna Medicare Commercial [id number] Self [id number] TODAYS OPTIONS [id number] SP [id number] AETNA MEDICARE [id number] SP [id number] [id number] TODAYS OPTIONS [id number] SP [id number] TODAYS OPTIONS [id number] SP [id number] TODAYS OPTIONS [id number] SP [id number] Medicaid Medigap Part B [id number] Self [id number] Today's Options Ppo Commercial [id number] Self [id number] Medicaid Medigap Part B [id number] Self [id number] Today's Options Ppo Commercial [id number] Self [id number] Today's Options Medicare Commercial [id number] Self [id number] [place] [id number] Self [id number] [facility] Health Maintenance Organization (O) [id number] S elf [id number] MEDICARE [id number] SP [id number] A MEDICAID [id number] SP [id number] Today's Options Medicare Commercial [id number] Self [id number] [place] Part B [id number] Self [id number] [facility] Health Maintenance Organization (O) [id number] S elf [id number] MEDICAID M [id number] S [id number] Medicaid Medigap Part B [id number] Self [id number] Today's Options Ppo Commercial [id number] Self [id number] Medicaid Medigap Part B [id number] Self [id number] Today's Options Ppo Commercial [id number] Self [id number] Medicaid Medigap Part B [id number] Self [id number] Today's Options Ppo Commercial [id number] Self [id number] Medicaid Medigap Part B [id number] Self [id number] Today's Options Ppo Commercial [id number] Self [id number] TODAYS OPTIONS [id number] SP [id number] MEDICAID [id number] SP [id number] Medicaid Medigap Part B Self Today's Options Ppo Commercial Self Todays Options Medigap Part B Self Blue Shield MCR Advantage Commercial Self TODAYS OPTIONS [id number] SP [id number] MEDICARE BLUE PPO [id number] SP [id number] EXCELLUS BCBS P [id number] S [id number] MEDICARE S [id number] S [id number] A MEDICARE BLUE PPO P [id number] S [id number] A Problems, Conditions, and Diagnoses Code Display Name Description Problem Type Effective Dates Data Source(s) F17.210 [id number] Nicotine dependence, cigarettes, uncompli cated Problem 06/22/2020 12:00:00 AM EST eCW1 ([facility]) J30.9 [id number] Chronic allergic rhinitis Problem 06/13/2020 12:00:00 AM EST eCW1 ([facility]) F17.210 Nicotine dependence, cigarettes, uncompl icated NICOTINE DEPENDENCE, CIGARETTES, UNCOMPLICATED Diagnosis 06/13/2020 09:55:00 AM EST [facility] J30.9 Allergic rhinitis, unspecified ALLERGIC RHINITIS, UNSP ECIFIED Diagnosis 06/13/2020 09:55:00 AM EST [facility] Surgeries/Procedures Procedure Description Date Indications Data Source(s) MYOCARDIAL SPECT MULTIPLE STUDIES 06/12/2020 12:00:00 AM EST [facility] ([facility]) CV STRS TST XERS&/OR RX CONT ECG PHYS SI&R 06/12/2020 12:00:00 AM EST [facility] ([facility]) ECG ROUTINE ECG W/LEAST 12 LDS W/I&R 02/15/2020 12:00: 00 AM EDT [facility] ([facility]) Results ID Date Data Source [id number] 05/29/2020 12:25:00 PM EDT [facility] ([facility]) Name Value Range Interpretation Code Description Data Giovanna rce(s) Supporting Document(s) Blood Urea Nitrogen 13 mg/dL 7-18 [facility] ([facility]) Glucose, Fasting 71 mg/dL 70-100 [facility] ([facility]) Sodium Level 146 meq/L 136-145 [facility] ([facility]) Glomerular Filtration Rate Laboratory test result [facility] ([facility]) <content>Units are mL/min/1.73 m2</content>
<content></content>
<content>Chronic Kidney Disease Staging per NKF:</content>
<content></content>
<content>Stage I & II GFR >=60 Normal to Mildly Decreased</content>
<content>Stage III GFR 30-59 Moderately Decreased</content>
<content>Stage IV GFR 15-29 Severely Decreased</content>
<content>Stage V GFR <15 Very Little GFR Left</content>
<content>ESRD GFR <15 on DIVISION TOLL WIRE CHIEF</content>
<content></content> Creatinine For GFR 0.92 mg/dL 0.55-1.30 [facility] ([facility]) Chloride Level 107 meq/L 98-107 [facility] ([facility]) Potassium Serum 3.8 meq/L 3.5-5.1 [facility] ([facility]) Calcium Level 9.0 mg/dL 8.8-10.2 [facility] ([facility]) Anion Gap 6 meq/L 8-16 [facility] Carbon Dioxide Level 33 meq/L 21-32 [facility] ([facility]) ID Date Data Source [id number] 05/18/2020 12:00:00 AM EDT [facility] Kaleb Warren MD Patient Name: SHAINA [id number] [facility] Date of : 1950[place] Date of Exam: 05/18/2020JOSE CARLOS Valdez [id number]#: Fax: [id number] EXAM: LOW DOSE CT LUNG SCREENINGCLINICAL INFORMATION: Tobacco abuse.Comparisons 04/18/2019 and 01/13/2019 along with 04/09/2017.64 slice low dose lung screening CT was obtained using axial images in a YBfilter (lung) without intravenous contrast. As per the protocol, only lungwindow images were sent to the read station for interpretation.No new abnormal nodules, masses, or opacities have developed. Thesubsegmental atelectatic changes seen previously have improved. No pleuralor pericardial effusions have developed.Grossly, the mediastinum and pulmonary kit are unchanged. Grossly, theimaged upper abdomen and imaged osseous structures are unchanged.IMPRESSION:Lung Rads Category 2 exam. Continued surveillance is recommended as perthe revised Fleischner Society criteria.Accredited by the [place] [employer] in [place].SOM Arriola/Shelly you for referring MARIANGEL PHILLIPS to our office. Electronically Signed - TRUONG DIAZ DO 05/18/20 16:05 Name Value Range Interpretation Code Description Data Giovanna rce(s) Supporting Document(s) ID Date Data Source [id number] 03/24/2020 09:36:00 AM EDT [facility] Name Value Range Interpretation Code Description Data Giovanna rce(s) Supporting Document(s) SARS coronavirus 2 RNA [facility] This lab was ordered by [facility] and reported by [facility]. ID Date Data Source [id number] 03/21/2020 02:37:00 PM EDT [facility] ([facility]) Name Value Range Interpretation Code Description Data Giovanna rce(s) Supporting Document(s) Triglycerides Level 106 mg/dL [facility] ([facility]) Cholesterol Level 186 mg/dL [facility] ([facility]) HDL Cholesterol 37 mg/dL [facility] ([facility]) Non-HDL-C 149 mg/dL [facility] Cholesterol Risk Ratio 5.027 [facility] ([facility]) LDL Cholesterol 128 mg/dL [facility] ([facility]) ID Date Data Source [id number] 03/21/2020 02:37:00 PM EDT [facility] ([facility]) Name Value Range Interpretation Code Description Data Giovanna rce(s) Supporting Document(s) White Blood Count 10.8 10 4.0-10.0 [facility] ([facility]) Red Blood Count 5.30 10 4.00-5.40 [facility] ([facility]) Hemoglobin 14.9 g/dL 12.0-15.5 [facility] ([facility]) Hematocrit 46.6 % 36.0-47.0 [facility] ([facility]) Mean Corpuscular Volume 87.9 fl 80.0-96.0 M EDENT ([facility]) Mean Corpuscular Hemoglobin 28.1 pg 27.0-33.0 [facility] ([facility]) Mean Corpuscular HGB Conc 32.0 g/dL 32.0-36.5 [facility] ([facility]) Red Cell Distribution Width 15.2 % 11.5-14.5 [facility] ([facility]) Nucleated Red Blood Cell % 0.0 % 0-0 MED ENT ([facility]iology [facility]) Platelet Count, Automated 261 10 150-450 MED[facility] ([facility]iology [facility]) ID Date Data Source [id number] 03/21/2020 02:37:00 PM EDT [facility] Name Value Range Interpretation Code Description Data Giovanna rce(s) Supporting Document(s) Glucose, Fasting 116 mg/dL 70-100 [facility] ([facility]) Creatinine For GFR 0.99 mg/dL 0.55-1.30 MED[facility] ([facility]) Blood Urea Nitrogen 15 mg/dL 7-18 [facility] ([facility]) Sodium Level 143 meq/L 136-145 [facility] ([facility]) Glomerular Filtration Rate 58.9 MED ENT (Cardiology [facility]) <content>Units are mL/min/1.73 m2</content>
<content></content>
<content>Chronic Kidney Disease Staging per NKF:</content>
<content></content>
<content>Stage I & II GFR >=60 Normal to Mildly Decreased</content>
<content>Stage III GFR 30-59 Moderately Decreased</content>
<content>Stage IV GFR 15-29 Severely Decreased</content>
<content>Stage V GFR <15 Very Little GFR Left</content>
<content>ESRD GFR <15 on DIVISION TOLL WIRE CHIEF</content>
<content></content> Potassium Serum 3.2 meq/L 3.5-5.1 [facility] ([facility]) Chloride Level 107 meq/L 98-107 [facility] ([facility]) Carbon Dioxide Level 34 meq/L 21-32 [facility] ([facility]) Anion Gap 2 meq/L 8-16 [facility] Calcium Level 9.2 mg/dL 8.8-10.2 [facility] ([facility]) ID Date Data Source [id number] 09/23/2019 03:45:00 PM EST [facility] ([facility]) Name Value Range Interpretation Code Description Data Giovanna rce(s) Supporting Document(s) <External Comment eCWMed> Laboratory test result MED[facility] ([facility]) FULL REPORT IN LAB NOTES (eCW and Medent ). Urine Culture Result Laboratory test result [facility] ([facility]) Procedure Social History Code Duration Value Status Description Data Source(s ) Smoking 06/14/2020 12:00:00 AM EST Current Smoker completed Curre nt Smoker eCW1 ([facility][Note 3]) Vital Signs ID Date Data Source UNK Name Value Range Interpretation Code Description Data Source(s) Oxygen saturation in Arterial blood by Pulse oximetry 93 % 93 % eCW1 ([facility][Note 3]) Respiratory rate 22 /min 22 /min eCW1 ([facility]) Heart rate 77 /min 77 /min eCW1 ([facility]) Body temperature 97.9 [degF] 97.9 [degF] eCW1 ( [facility][Note 3]) Body weight 236 [lb_av] 236 [lb_av] eCW1 ([facility][Note 3]) Body mass index (BMI) [Ratio] 41.6 kg/m2 41.6 k g/m2 MEDENT ([facility], [facility]) Body height 63 [in_i] 63 [in_i] MEDENT ([facility], [facility]) 5'3" Body weight 235.00 [lb_av] 235.00 [lb_av] MEDEN T ([facility], [facility]) Body temperature 98.0 [degF] 98.0 [degF] [facility]) Oxygen saturation in Arterial blood by Pulse oximetry 92 % 92 % [facility] ([facility], [facility]) Respiratory rate 16 /min 16 /min [facility], [facility]) Heart rate 83 /min 83 /min [facility] ([facility], [facility]) Diastolic blood pressure 88 mm[Hg] 88 mm[Hg] [facility] ([facility], [facility]) Systolic blood pressure 136 mm[Hg] 136 mm[Hg] [facility], [facility]) Body weight 108.864 kg 108.864 kg [facility] ([facility]) [place] body weight 110 [lb_av] 110 [lb_av] [facility] Body mass index (BMI) [Ratio] 43.9 kg/m2 43.9 k g/m2 [facility] ([facility]) Body weight 240.00 [lb_av] 240.00 [lb_av] [facility] Body height 62 [in_i] 62 [in_i] [facility] ([facility]) 5'2" Oxygen saturation in Arterial blood by Pulse oximetry 89 % 89 % [facility] ([facility]) Room Air Heart rate 72 /min 72 /min [facility] ([facility]) Diastolic blood pressure 80 mm[Hg] 80 mm[Hg] [facility] ([facility]) Systolic blood pressure 130 mm[Hg] 130 mm[Hg] [facility] Diastolic blood pressure--sitting 86 mm[Hg] 86 mm[Hg] [facility] ([facility]) large cuff, Ra Systolic blood pressure--sitting 126 mm[Hg] 126 mm[Hg] [facility] ([facility]) large cuff, Ra Heart rate 82 /min 82 /min [facility] ([facility]) Body mass index (BMI) [Ratio] 42.3 kg/m2 42.3 k g/m2 [facility] ([facility]) Body height 63 [in_i] 63 [in_i] [facility] 5'3" Body weight 239.00 [lb_av] 239.00 [lb_av] MEDEN T ([facility]) Body weight 110.678 kg 110.678 kg [facility] ([facility]) [place] body weight 110 [lb_av] 110 [lb_av] [facility] Body mass index (BMI) [Ratio] 44.6 kg/m2 44.6 k g/m2 [facility] ([facility]) Body weight 244.00 [lb_av] 244.00 [lb_av] [facility] Body height 62 [in_i] 62 [in_i] [facility] ([facility]) 5'2" Body temperature 98.2 [degF] 98.2 [degF] [facility] ([facility], ) Oxygen saturation in Arterial blood by Pulse oximetry 90 % 90 % [facility] ([facility]) Room Air Heart rate 94 /min 94 /min [facility] ([facility], ) Diastolic blood pressure 86 mm[Hg] 86 mm[Hg] [facility] ([facility]) Systolic blood pressure 120 mm[Hg] 120 mm[Hg] Darrin PITT ([facility], )
--- OUTSIDE RECORDS SUMMARY | 2020-08-19 09:35 | CCD | Continuity of Care Document ---
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 reed Exercise Type/Frequency Does aerobics sporadical [...] SIG Qnty Indications Ordering Provide r Date Prozac 20mg Capsules 1 by mouth every day Ty Nelson MD 06/03/2020 Potassium Chloride ER 20Meq Tablet s ER 1 by mouth every day 90tabs Yoni Morrison MD 03/30/20 20 Nicoderm CQ 21mg/24HR Patches 24HR apply one [...] Ty Nelson MD 03/09/2016 Calcium + D3 [id number] Tablet s 1 by mouth once every day Unknown 03/09/2016 Amitriptyline HCL 50mg Tablets 1 by mouth every day Ty Nelson MD 03/09/2016 Stool Softener 100mg Capsules 1 by mouth once a day as needed Unknown 03/09/2016 Miralax [id number] Powder 1 tablespoon every evening, as directed, as needed Unknown 03/09/2016 Xanax 0.5mg Tablets 1 by mouth three times a day as needed Ty eNlson MD 03/09/2016 Ventolin HFA 108(90Base) mcg/Act A [...] Test Result H/L Range Note BMP 05/29/2020 [facility] nter [phone] Glucose, Fasting 71 mg/dL Normal 70-100 Blood [...] Level 9.0 mg/dL Normal 8.8-10.2 BMP 03/21/2020 [facility] nter [phone] Glucose, Fasting 116 mg/dL High 70-100 Blood [...] mg/dL Normal 8.8-10.2 CBC No Diff 03/21/2020 [facility] nter [phone] White Blood Count 10.8 10 High 4.0-10.0 [...] 0.0 % Normal 0-0 Lipid Panel 03/21/2020 [facility] [phone] Triglycerides Level 106 mg/dL Normal <150 Cholesterol [...] Little GFR Left ESRD GFR <15 on DIRECTOR WORK 2 Units are mL/min/1.73 m2 Chronic Kidney Disease Staging per NKF: Stage I & II GFR >=60 Normal to Mildly Decreased Stage III GFR 30-59 Moderately Decreased Stage IV GFR 15-29 Severely Decreased Stage V GFR <15 Very Little GFR Left ESRD GFR <15 on DIRECTOR WORK Procedures Date Code Description Status 06/12/2020 74915 Treadmill/Pharmacological [place] ring Completed 06/12/2020 95061 Myocardial Perfusion Spect Multi ple Completed 02/15/2020 89813 ECG 12-Lead Completed Medical Devices Description No Information Available Encounters Type Date Location Provider Dx Diagnosis Office Visit 02/15/2020 12:15p Main Office JOSE Olmos I11.9 Hypertensive heart disease without heart failure R07.2 Precordial pain I34.0 Nonrheumatic mitral (valve) insufficiency R94.31 Abnormal electrocardiogram [ ECG] [EKG] R60.0 Localized edema Z71.3 Dietary counseling and surve illance Assessments Date Code Description Provider 06/12/2020 R07.2 Precordial pain Stress Nuclear/R eg Treadmill 06/12/2020 R94.31 Abnormal electrocardiogram [ECG] [EKG] Stress Nuclear/Reg Treadmill 02/15/2020 I11.9 Hypertensive heart disease witho ut [...] Mental Status Description No Information Available Referrals Refer to Reason for Referral Status Appt Date Neal Doss MD [facility] auth emr-expires 12/03/20. [place] Created [id number] [facility] [id number] [phone]
--- NOTE | 2020-08-19 10:08 | REP ---
INDICATION: DYSPNEA/COUGH. COMPARISON: 09/27/2018. TECHNIQUE: SINGLE PORTABLE AP VIEW OF THE CHEST WAS PERFORMED. FINDINGS: Interstitial fibrotic change bilaterally is stable. There is no acute infiltrate. There is mild left ventricular prominence. The mediastinal silhouette is unchanged. There are degenerative changes of the spine. IMPRESSION: NO ACUTE PULMONARY DISEASE. <Electronically signed by Xavi Eason > 08/19/20 3508
[2020-08-19 10:16] LABS: BASO % 0.3 % (0.0-1.0); EOS # 0.2 10^3/uL (0.0-0.5); EOS % 2.3 % (0.0-3.0); HEMATOCRIT 46.4 % (36.0-47.0); HEMOGLOBIN 14.5 g/dl (12.0-15.5); LYMPH # 1.4 10^3/uL (1.5-5.0); LYMPH % 15.1 % (24.0-44.0); MEAN CORPUSCULAR HEMOGLOBIN 27.8 pg (27.0-33.0); MEAN CORPUSCULAR HGB CONC 31.3 g/dl (32.0-36.5); MEAN CORPUSCULAR VOLUME 88.9 fl (80.0-96.0); MONO # 0.7 10^3/uL (0.0-0.8); MONO % 7.6 % (0.0-5.0); NEUTROPHILS # 7.1 10^3/uL (1.5-8.5); NEUTROPHILS % 74.5 % (36.0-66.0); PLATELET COUNT, AUTOMATED 259 10^3/uL (150-450); RED BLOOD COUNT 5.22 10^6/uL (4.00-5.40); WHITE BLOOD COUNT 9.5 10^3/uL (4.0-10.0)
--- OUTSIDE RECORDS SUMMARY | 2020-08-19 10:17 | CCD ---
Author Author [facility] Organization [facility] Address Unknown Phone Unavailable Care Team Providers Care Apron Cleaner Name Role Phone Eleazar, L Mei PA [...] L Mei PA Unavailable Unavailable Seema Haque SLICING MACHINE OPERATOR/TENDER-C Unavailable Unavailabl e GarlandSeemaP-C Unavailable Unavailabl e GarlandSeemaP-C Unavailable Unavailabl e GarlandSeema SLICING MACHINE OPERATOR/TENDER-C Unavailable Unavailabl e GarlandSeemayce SLICING MACHINE OPERATOR/TENDER-C Unavailable Unavailabl e Garland, Seema W Sherron SLICING MACHINE OPERATOR/TENDER-C Unavailable Unavailabl e Garland, Seema W Sherron SLICING MACHINE OPERATOR/TENDER-C Unavailable Unavailabl e Garland, Seema W Sherron SLICING MACHINE OPERATOR/TENDER-C Unavailable Unavailabl e Garland, Seema Goncalvese SLICING MACHINE OPERATOR/TENDER-C Unavailable Unavailabl e Garland, Seema W Sherron SLICING MACHINE OPERATOR/TENDER-C Unavailable Unavailabl e Garland, Seema W Sherron SLICING MACHINE OPERATOR/TENDER-C Unavailable Unavailabl e Garland, Seema W Sherron SLICING MACHINE OPERATOR/TENDER-C Unavailable Unavailabl e Garland, Sue W Sherron SLICING MACHINE OPERATOR/TENDER-C Unavailable Unavailabl e Garland, Seema W Sherron SLICING MACHINE OPERATOR/TENDER-C Unavailable Unavailabl e Garland, Seema W Sherron SLICING MACHINE OPERATOR/TENDER-C Unavailable Unavailabl e Garland, Seema W Sherron SLICING MACHINE OPERATOR/TENDER-C Unavailable Unavailabl e Garland, Seema W Sherron SLICING MACHINE OPERATOR/TENDER-C Unavailable Unavailabl e Garland, Seema Siu SLICING MACHINE OPERATOR/TENDER-C Unavailable Unavailabl e Garland, Sue W Sherron SLICING MACHINE OPERATOR/TENDER-C Unavailable Unavailabl e Garland, Seema W Sherron SLICING MACHINE OPERATOR/TENDER-C Unavailable Unavailabl e Garland, Seema W Sherron SLICING MACHINE OPERATOR/TENDER-C Unavailable Unavailabl e Garland, Seema W Sherron SLICING MACHINE OPERATOR/TENDER-C Unavailable Unavailabl e Garland, Sue W Sherron SLICING MACHINE OPERATOR/TENDER-C Unavailable Unavailabl e Garland, Reghailey W Sherron SLICING MACHINE OPERATOR/TENDER-C Unavailable Unavailabl e Garland, Reghailey W Sherron SLICING MACHINE OPERATOR/TENDER-C Unavailable Unavailabl e Garland, Regina W Sherron SLICING MACHINE OPERATOR/TENDER-C Unavailable Unavailabl e Garland, Reghailey W Sherron SLICING MACHINE OPERATOR/TENDER-C Unavailable Unavailabl e Garland, Reghailey W Sherron SLICING MACHINE OPERATOR/TENDER-C Unavailable Unavailabl e Garland, Reghailey W Sherron SLICING MACHINE OPERATOR/TENDER-C Unavailable Unavailabl e Garland, Reghailey W Sherron SLICING MACHINE OPERATOR/TENDER-C Unavailable Unavailabl e Garland, Regnilson Daniel Sherron SLICING MACHINE OPERATOR/TENDER-C Unavailable Unavailabl e GarlandSeema Sherron SLICING MACHINE OPERATOR/TENDER-C Unavailable Unavailabl e Martin, Lucie MANAGER GREEN Unavailable Unavailable Martin, Lucie MANAGER GREEN Unavailable Unavailable Martin, Lucie MANAGER GREEN Unavailable Unavailable Martin, Lucie MANAGER GREEN Unavailable Unavailable Martin, Lucie MANAGER GREEN Unavailable Unavailable Martin, Lucie MANAGER GREEN Unavailable Unavailable Martin, Lucie MANAGER GREEN Unavailable Unavailable Martin, Lucie MANAGER GREEN Unavailable Unavailable Martin, Lucie MANAGER GREEN Unavailable Unavailable Martin, Lucie MANAGER GREEN Unavailable Unavailable Martin, Lucie MANAGER GREEN Unavailable Unavailable Ruy Warren MD Unavailable Unavailable [...] is protected by Article 27-F of the [place] [facility] Public Health law. If you continue you may have access to information: Regarding HIV / AIDS; Provided by facilities licensed or operated by the [facility] Office of Mental Health; or Provided by the [facility] Office for People With Developmental Disabilities. If such information is present, then the following [facility] mandated warning applies: This information has been [...] law may result in a fine or custodial sentence or both. A general authorization for the release of medical or other information is NOT sufficient authorization for further disc losure. Family History Family Member Name Family Member Gender Family Member Status Date o f Status Description Data Source(s) Unknown Unknown Problem MEDENT ([facility]) Unknown Unknown Problem [facility] ([facility] Unknown Unknown Problem [facility] Unknown Male Problem MED[facility] ([facility] () Unknown Female Problem MED[facility] ([facility]) Unknown Female Problem MEDENT ([facility]) Encounters Encounter Providers Location Date Indications Data Source(s ) Outpatient Attender: Sherron ROCHA-C 06/13/2020 09:55:0 0 AM EST [facility] Outpatient [facility] 06/13/2020 12:00:00 AM EST [facility]CW1 [facility] Outpatient Attender: Lucie durbin 05/29/2020 02:00:00 PM EDT MED[facility] ([facility] Outpatient Attender: Mei GARCIA Main Office 02/15/2020 12:15:0 0 PM EDT MEDENT ([facility]) Outpatient Referrer: Kaleb Warren MD 10/03/2019 03:16:0 0 PM [facility] Outpatient Attender: CHECO Anderson geology technician 02:00:00 PM EST MEDENT ([facility]) Medications Medication Brand Name Start Date Product Form Dose Route Admi nistrative Instructions Pharmacy Instructions Status Indications Reaction Description Data Source(s) Fluoxetine 20 MG Oral Capsule [Prozac] Prozac 06/03/2020 12:00:00 AM EDT ORAL active MEDENT ([facility]) Prednisone 10 MG Oral Tablet Prednisone 05/29/2020 12:00:00 AM EDT ORAL active MEDENT ([facility]) Potassium Chloride 20 MEQ Extended Release Oral Tablet Potas sium Chloride ER 03/30/2020 12:00:00 AM EDT ORAL active MEDENT ([facility]) 24 HR Nicotine 0.875 MG/HR Transdermal Patch [Nicoderm C-Q] Nicoderm CQ 02/14/2020 12:00:00 AM EDT active MEDENT ([facility]) Insurance Providers Payer name Policy type / Coverage type Policy ID Covered alliance party ID Covered alliance party's relationship to gonzalez Policy Gonzalez Plan Information AETNA MEDICARE [id number] SP MEBSS [id number] AETNA MEDICARE O [id number] S [id number] AETNA [employer] [id number] S MEB [id number] MEDICAID [id number] S [id number] AETNA MEDICARE [id number] SP MEBSS [id number] AETNA MEDICARE O [id number] S [id number] 2DR AETNA MEDICARE [id number] SP MEBSS [id number] Aetna Commercial [id number] Self [id number] Today's Options Medicare Commercial [id number] Self [id number] [place] Medig[place] Part B [id number] Self [id number] [facility] Maintenance Organization (HMO) [id number] S elf [id number] Aetna Medicare Medigap Part B [id number] Self [id number] AETNA MEDICARE [id number] SP MEBSS [id number] AETNA MEDICARE [id number] SP MEBPW 2DR MEDICAID [id number] SP [id number] AETNA MEDICARE [id number] SP [id number] Medicaid Medigap Part B [id number] Self [id number] Today's Options Ppo Commercial [id number] Self [id number] Medicaid Medigap Part B [id number] Self [id number] Today's Options Ppo Commercial [id number] Self [id number] Aetna Commercial [id number] Self [id number] Today's Options Medicare Commercial [id number] Self [id number] [place] Part [place] [id number] Self [id number] [facility] Maintenance [facility] (HMO) [id number] S elf [id number] Today's Options Medicare Commercial [id number] Self [id number] [place] [id number] Self [id number] [facility] Maintenance Organization (HMO) [id number] S elf [id number] [employer] [id number] S [id number] [id number] Medicaid Medigap Part B [id number] Self [id number] Today's Options Ppo Commercial [id number] Self [id number] Medicaid Medigap Part B [id number] Self [id number] Today's Options Ppo Commercial [id number] Self [id number] Aetna Commercial [id number] Self [id number] Medicaid Medigap Part B [id number] Self [id number] Today's Options Ppo Commercial [id number] Self [id number] Medicaid Medigap Part B [id number] Self [id number] Today's Options Ppo Commercial [id number] Self [id number] Aetna Commercial [id number] Self [id number] [place]ig[place] Part B [id number] Self [id number] [employer] [facility] [place] Commercial [id number] Self [id number] Aetna Medicare Commercial [id number] Self MEBP [id number] AETNA HEALTHCARE TX O [id number] S [id number] TODAYS OPTIONS/KOSOVAN O [id number] O [id number] [place]ig[place] Part B [id number] Self [id number] [employer] [place] Commercial [id number] Self [id number] Aetna Medicare Commercial [id number] Self MEBP [id number] TODAYS OPTIONS [id number] SP [id number] AETNA MEDICARE [id number] SP MNEBP [id number] TODAYS OPTIONS [id number] SP [id number] TODAYS OPTIONS [id number] SP [id number] TODAYS OPTIONS [id number] SP [id number] Medicaid Medigap Part B [id number] Self [id number] Today's Options Ppo Commercial [id number] Self [id number] Medicaid Medigap Part B [id number] Self [id number] Today's Options Ppo Commercial [id number] Self [id number] Today's Options Medicare Commercial [id number] Self [id number] [place] Part B [id number] Self [id number] [facility] Health Maintenance Organization (O) [id number] S elf [id number] MEDICARE [id number] SP [id number] A MEDICAID [id number] SP [id number] Today's Options Medicare Commercial [id number] Self [id number] [place] Med[place] Part B [id number] Self [id number] [facility] Health Maintenance Organization (O) [id number] S elf [id number] MEDICAID M [id number] S [id number] Medicaid Medigap Part B [id number] Self [id number] Today's Options Ppo Commercial [id number] Self [id number] Medicaid Medigap Part B [id number] Self [id number] Today's Options Ppo Commercial [id number] Self [id number] Medicaid Medigap Part B [id number] Self [id number] Today's Options Ppo Commercial [id number] Self [id number] Medicaid Medigap Part B [id number] Self [id number] Today's Options Ppo Commercial [id number] Self [id number] TODAYS OPTIONS [id number] SP [id number] MEDICAID [id number] SP [id number] Medicaid Medigap Part B Self Today's Options Ppo Commercial Self Todays Options Medigap Part B Self Blue Shield MCR Advantage Commercial Self TODAYS OPTIONS [id number] SP [id number] MEDICARE BLUE PPO 306 [id number] SP [id number] EXCELLUS BCBS P [id number] S [id number] MEDICARE S [id number] S [id number] A MEDICARE BLUE PPO P [id number] S [id number] A Problems, Conditions, and Diagnoses Code Display Name Description Problem Type Effective Dates Data Source(s) F17.210 [id number] Nicotine dependence, cigarettes, uncompli cated Problem 06/22/2020 12:00:00 AM EST eCW1 ([facility]) J30.9 [id number] Chronic allergic rhinitis Problem 06/13/2020 12:00:00 AM EST eCW1 ([facility]) F17.210 Nicotine dependence, cigarettes, uncompl icated NICOTINE DEPENDENCE, CIGARETTES, UNCOMPLICATED Diagnosis 06/13/2020 09:55:00 AM EST [facility] J30.9 Allergic rhinitis, unspecified ALLERGIC RHINITIS, UNSP ECIFIED Diagnosis 06/13/2020 09:55:00 AM EST [facility] Surgeries/Procedures Procedure Description Date Indications Data Source(s) MYOCARDIAL SPECT MULTIPLE STUDIES 06/12/2020 12:00:00 AM EST MEDENT ([facility]) CV STRS TST XERS&/OR RX CONT ECG PHYS SI&R 06/12/2020 12:00:00 AM EST MEDENT ([facility]) ECG ROUTINE ECG W/LEAST 12 LDS W/I&R 02/15/2020 12:00: 00 AM EDT MED[facility] ([facility]) Results ID Date Data Source [id number] 05/29/2020 12:25:00 PM EDT MED[facility] ([facility]) Name Value Range Interpretation Code Description Data Giovanna rce(s) Supporting Document(s) Blood Urea Nitrogen 13 mg/dL 7-18 MED[facility] ([facility]) Glucose, Fasting 71 mg/dL 70-100 [facility] ([facility]) Sodium Level 146 meq/L 136-145 MED[facility] ([facility]) Glomerular Filtration Rate Laboratory test result MEDENT ([facility]) <content>Units are mL/min/1.73 m2</content>
<content></content>
<content>Chronic Kidney Disease Staging per NKF:</content>
<content></content>
<content>Stage I & II GFR >=60 Normal to Mildly Decreased</content>
<content>Stage III GFR 30-59 Moderately Decreased</content>
<content>Stage IV GFR 15-29 Severely Decreased</content>
<content>Stage V GFR <15 Very Little GFR Left</content>
<content>ESRD GFR <15 on ELASTIC ATTACHER OVERLOCK</content>
<content></content> Creatinine For GFR 0.92 mg/dL 0.55-1.30 MED[facility] ([facility]) Chloride Level 107 meq/L 98-107 MED[facility] ([facility]) Potassium Serum 3.8 meq/L 3.5-5.1 [facility] ([facility]) Calcium Level 9.0 mg/dL 8.8-10.2 MED[facility] ([facility]) Anion Gap 6 meq/L 8-16 MED[facility] ([facility]) Carbon Dioxide Level 33 meq/L 21-32 MED[facility] ([facility]) ID Date Data Source [id number] 05/18/2020 12:00:00 AM EDT [facility] Imaging Kaleb Warren MD Patient Name: SHAINA [id number] [facility] Date of : 1950[place] Date of Exam: 05/18/2020JOSE CARLOS Valdez [id number]#: Fax: [id number] EXAM: LOW DOSE CT LUNG [...] perthe revised Fleischner Society criteria.Accredited by the [place] [employer] in [place].SOM Arriola/Shelly you for referring MARIANGEL PHILLIPS to our office. Electronically Signed - TRUONG DIAZ DO 05/18/20 16:05 Name Value Range Interpretation Code Description Data Giovanna rce(s) Supporting Document(s) ID Date Data Source [id number] 03/24/2020 09:36:00 AM EDT [facility] Name Value Range Interpretation Code Description Data Giovanna rce(s) Supporting Document(s) SARS coronavirus 2 RNA [facility] This lab was ordered by [facility] and reported by [facility]. ID Date Data Source [id number] 03/21/2020 02:37:00 PM EDT MEDENT ([facility]) Name Value Range Interpretation Code Description Data Giovanna rce(s) Supporting Document(s) Triglycerides Level 106 mg/dL MEDENT ([facility]) Cholesterol Level 186 mg/dL MED[facility] ([facility]) HDL Cholesterol 37 mg/dL MED[facility] ([facility]) Non-HDL-C 149 mg/dL [facility] Cholesterol Risk Ratio 5.027 MED[facility] ([facility]) LDL Cholesterol 128 mg/dL MED[facility] ([facility]) ID Date Data Source [id number] 03/21/2020 02:37:00 PM EDT MEDENT ([facility]) Name Value Range Interpretation Code Description Data Giovanna rce(s) Supporting Document(s) White Blood Count 10.8 10 4.0-10.0 MEDENT ([facility]) Red Blood Count 5.30 10 4.00-5.40 MED[facility] ([facility]) Hemoglobin 14.9 g/dL 12.0-15.5 MEDENT (Cardiology [facility]) Hematocrit 46.6 % 36.0-47.0 MEDENT (Cardiology [facility]) Mean Corpuscular Volume 87.9 fl 80.0-96.0 M EDENT (Cardiology [facility]) Mean Corpuscular Hemoglobin 28.1 pg 27.0-33.0 MEDENT (Cardiology [facility]) Mean Corpuscular HGB Conc 32.0 g/dL 32.0-36.5 MEDENT (Cardiology [facility]) Red Cell Distribution Width 15.2 % 11.5-14.5 MEDENT (Cardiology [facility]) Nucleated Red Blood Cell % 0.0 % 0-0 MED ENT (Cardiology [facility]) Platelet Count, Automated 261 10 150-450 MEDENT (Cardiology [facility]) ID Date Data Source [id number] 03/21/2020 02:37:00 PM EDT [facility] Name Value Range Interpretation Code Description Data Giovanna rce(s) Supporting Document(s) Glucose, Fasting 116 mg/dL 70-100 MEDENT ([facility]) Creatinine For GFR 0.99 mg/dL 0.55-1.30 MEDENT (Cardiology [facility]) Blood Urea Nitrogen 15 mg/dL 7-18 MED[facility] ([facility]) Sodium Level 143 meq/L 136-145 MED[facility] ([facility]) Glomerular Filtration Rate 58.9 MED ENT (Cardiology [facility]) <content>Units are mL/min/1.73 m2</content>
<content></content>
<content>Chronic Kidney Disease Staging per NKF:</content>
<content></content>
<content>Stage I & II GFR >=60 Normal to Mildly Decreased</content>
<content>Stage III GFR 30-59 Moderately Decreased</content>
<content>Stage IV GFR 15-29 Severely Decreased</content>
<content>Stage V GFR <15 Very Little GFR Left</content>
<content>ESRD GFR <15 on ELASTIC ATTACHER OVERLOCK</content>
<content></content> Potassium Serum 3.2 meq/L 3.5-5.1 MED[facility] ([facility]) Chloride Level 107 meq/L 98-107 MED[facility] ([facility]) Carbon Dioxide Level 34 meq/L 21-32 MED[facility] ([facility]) Anion Gap 2 meq/L 8-16 [facility] Calcium Level 9.2 mg/dL 8.8-10.2 MEDENT ([facility]) ID Date Data Source [id number] 09/23/2019 03:45:00 PM EST MEDENT ([facility] DIRECT[facility]) Name Value Range Interpretation Code Description Data Giovanna rce(s) Supporting Document(s) <External Comment eCWMed> Laboratory test result MEDENT ([facility] Anderson RESOURCE DIRECTOR) FULL REPORT IN LAB NOTES (eCW and Medent ). Urine Culture Result Laboratory test result MEDENT (Richardson Anderson RESOURCE DIRECTOR) Procedure Social History Code Duration Value Status [...] Respiratory rate 22 /min 22 /min eCW1 ([facility]) Heart rate 77 /min 77 /min eCW1 ([facility]) Body temperature 97.9 [degF] 97.9 [degF] eCW1 ( [facility][Note 3]) Body weight 236 [lb_av] 236 [lb_av] eCW1 ([facility][Note 3]) Body mass index (BMI) [Ratio] 41.6 kg/m2 41.6 k g/m2 MEDENT ([facility]) Body height 63 [in_i] 63 [in_i] MEDENT ([facility]) 5'3" Body weight 235.00 [lb_av] 235.00 [lb_av] MEDEN T ([facility]) Body temperature 98.0 [degF] 98.0 [degF] [facility]) Oxygen saturation in Arterial blood by Pulse oximetry 92 % 92 % [facility] ([facility]) Respiratory rate 16 /min 16 /min [facility]) Heart rate 83 /min 83 /min [facility]) Diastolic blood pressure 88 mm[Hg] 88 mm[Hg] [facility] Systolic blood pressure 136 mm[Hg] 136 mm[Hg] [facility]) Body weight 108.864 kg 108.864 kg [facility] ([facility]) [place] body weight 110 [lb_av] 110 [lb_av] [facility] Body mass index (BMI) [Ratio] 43.9 kg/m2 43.9 k g/m2 [facility] ([facility]) Body weight 240.00 [lb_av] 240.00 [lb_av] [facility] Body height 62 [in_i] 62 [in_i] [facility] ([facility]) 5'2" Oxygen saturation in Arterial blood by Pulse oximetry 89 % 89 % [facility] ([facility]) Room Air Heart rate 72 /min 72 /min [facility] ([facility]) Diastolic blood pressure 80 mm[Hg] 80 mm[Hg] [facility] ([facility]) Systolic blood pressure 130 mm[Hg] 130 mm[Hg] [facility] Diastolic blood pressure--sitting 86 mm[Hg] 86 mm[Hg] [facility]) large cuff, Ra Systolic blood pressure--sitting 126 mm[Hg] 126 mm[Hg] [facility] ([facility]) large cuff, Ra Heart rate 82 /min 82 /min [facility] ([facility]) Body mass index (BMI) [Ratio] 42.3 kg/m2 42.3 k g/m2 [facility]) Body height 63 [in_i] 63 [in_i] MEDENT ([facility]) 5'3" Body weight 239.00 [lb_av] 239.00 [lb_av] MEDEN T ([facility]) Body weight 110.678 kg 110.678 kg [facility] ([facility]) [place] body weight 110 [lb_av] 110 [lb_av] [facility]) Body mass index (BMI) [Ratio] 44.6 kg/m2 44.6 k g/m2 [facility] ([facility]) Body weight 244.00 [lb_av] 244.00 [lb_av] [facility], ) Body height 62 [in_i] 62 [in_i] [facility] ([facility]) 5'2" Body temperature 98.2 [degF] 98.2 [degF] [facility] ([facility], ) Oxygen saturation in Arterial blood by Pulse oximetry 90 % 90 % [facility] ([facility]) Room Air Heart rate 94 /min 94 /min [facility] ([facility], ) Diastolic blood pressure 86 mm[Hg] 86 mm[Hg] [facility] ([facility]) Systolic blood pressure 120 mm[Hg] 120 mm[Hg] Darrin PITT ([facility], )
[2020-08-19] MEDS ORDERED: MYRB25TA PO (10:35)
[2020-08-19] MEDS ORDERED: INCR1INH INH (10:35)
[2020-08-19] MEDS ORDERED: K-TA10TA2 PO (10:35)
[2020-08-19] MEDS ORDERED: ALBUTEROL 90 MCG/ACT 8GM HFA INHALER INH ONE (10:45)
[2020-08-19 10:47] LABS: ALBUMIN 3.1 GM/DL (3.2-5.2); ALT/SGPT 32 U/L (12-78); BILIRUBIN,DIRECT < 0.1 MG/DL (0.0-0.2); BILIRUBIN,TOTAL 0.4 MG/DL (0.2-1.0); BLOOD UREA NITROGEN 13 MG/DL (7-18); CALCIUM LEVEL 8.4 MG/DL (8.8-10.2); CARBON DIOXIDE LEVEL 27 MEQ/L (21-32); CHLORIDE LEVEL 108 MEQ/L (98-107); CREATININE FOR GFR 0.93 MG/DL (0.55-1.30); GLOMERULAR FILTRATION RATE > 60.0 (>39); GLUCOSE, FASTING 127 MG/DL (70-100); SODIUM LEVEL 141 MEQ/L (136-145); TOTAL PROTEIN 6.5 GM/DL (6.4-8.2)
[2020-08-19] MEDS ORDERED: predniSONE 20 MG TAB PO ONE (11:15)
[2020-08-19] MEDS ORDERED: PRED20TA PO (11:42)
[2020-08-19 12:16] VITALS: BP 138/81
--- NOTE | 2020-08-20 08:44 | ECGEPIP ---
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
== END 2020-08-19 12:23 | disposition home or self-care (01) ==
LOC: M ED 09:28
DX: J44.1 Chronic obstructive pulmonary disease with (acute) exacerbation (principal); I10 Essential (primary) hypertension; F17.200 Nicotine dependence, unspecified, uncomplicated; Z88.1 Allergy status to other antibiotic agents; Z88.8 Allergy status to other drugs, medicaments and biological substances; Z79.51 Long term (current) use of inhaled steroids; Z79.899 Other long term (current) drug therapy

== ENCOUNTER 2021-02-23 15:40 | Emergency (ER) | payer MEDICARE ==
[~2021-02-23] VITALS: Ht 157.5 cm; Wt 109.1 kg
[~2021-02-23 15:40] MED LIST changes: +K-TA10TA2 PO; +MYRB25TA PO
[2021-02-23 15:41] VITALS: BP 134/81
--- NOTE | 2021-02-23 18:24 | REP ---
INDICATION: swelling/pain. COMPARISON: None. TECHNIQUE: RIGHT {lower extremity duplex venous scanning is performed from the groin to the ankle level. FINDINGS: The deep veins are anechoic and fully compressible from the groin to the popliteal fossa in the right lower extremity. Color flow imaging is homogeneous. Spectral Doppler interrogation demonstrates intact respiratory variation in flow and normal manual augmentation of flow. There is no evidence of deep vein thrombosis above the knee. There is no evidence of DVT in the visualized calf veins. Doppler interrogation of the contralateral common femoral vein shows normal symmetric respiratory phasicity. IMPRESSION: No evidence of DVT in the right lower extremity femoropopliteal veins. No DVT in the visible portions of the calf veins. <Electronically signed by Dony Melendrez > 02/23/21 0294
== END 2021-02-23 19:27 | disposition home or self-care (01) ==
LOC: M ED 15:40
DX: I80.291 Phlebitis and thrombophlebitis of other deep vessels of right lower extremity (principal); I10 Essential (primary) hypertension; J44.9 Chronic obstructive pulmonary disease, unspecified; J45.909 Unspecified asthma, uncomplicated; G47.33 Obstructive sleep apnea (adult) (pediatric); K21.9 Gastro-esophageal reflux disease without esophagitis; F33.9 Major depressive disorder, recurrent, unspecified; F41.9 Anxiety disorder, unspecified; Z87.19 Personal history of other diseases of the digestive system; Z79.899 Other long term (current) drug therapy; Z79.82 Long term (current) use of aspirin; Z88.0 Allergy status to penicillin; Z88.1 Allergy status to other antibiotic agents; Z88.5 Allergy status to narcotic agent; Z88.8 Allergy status to other drugs, medicaments and biological substances; Z91.041 Radiographic dye allergy status; F17.210 Nicotine dependence, cigarettes, uncomplicated

== ENCOUNTER 2021-03-05 08:29 | Emergency (ER) | payer MEDICARE ==
[~2021-03-05] VITALS: Ht 157.5 cm; Wt 110.4 kg
[2021-03-05 09:12] LABS: BASO % 0.4 % (0.0-1.0); EOS # 0.3 10^3/uL (0.0-0.5); HEMATOCRIT 50.1 % (36.0-47.0); HEMOGLOBIN 15.8 g/dl (12.0-15.5); LYMPH # 1.4 10^3/uL (1.5-5.0); LYMPH % 16.8 % (24.0-44.0); MEAN CORPUSCULAR HEMOGLOBIN 27.5 pg (27.0-33.0); MEAN CORPUSCULAR HGB CONC 31.5 g/dl (32.0-36.5); MEAN CORPUSCULAR VOLUME 87.1 fl (80.0-96.0); MONO # 0.5 10^3/uL (0.0-0.8); NEUTROPHILS # 6.2 10^3/uL (1.5-8.5); NEUTROPHILS % 73.6 % (36.0-66.0); PLATELET COUNT, AUTOMATED 270 10^3/uL (150-450); RED BLOOD COUNT 5.75 10^6/uL (4.00-5.40); WHITE BLOOD COUNT 8.5 10^3/uL (4.0-10.0)
--- NOTE | 2021-03-05 09:26 | REP ---
INDICATION: CHEST PAIN. COMPARISON: 08/19/2020. TECHNIQUE: Single portable AP view of the chest was performed. FINDINGS: There is no acute infiltrate or pulmonary edema. There are mild stable bibasilar fibrotic changes. The heart is not significantly enlarged. The mediastinal silhouette is unremarkable. The visualized osseous structures are intact. IMPRESSION: No acute pulmonary disease. <Electronically signed by Xavi Eason > 03/05/21 0922
[2021-03-05 09:43] LABS: BLOOD UREA NITROGEN 14 MG/DL (7-18); CALCIUM LEVEL 8.7 MG/DL (8.8-10.2); CARBON DIOXIDE LEVEL 31 MEQ/L (21-32); CHLORIDE LEVEL 107 MEQ/L (98-107); CK-MB VALUE MASS 2.4 NG/ML (<3.6); CPK CREATINE PHOSPHOKINASE 175 U/L (26-192); GLOMERULAR FILTRATION RATE > 60.0 (>39); GLUCOSE, FASTING 167 MG/DL (70-100); MB/CK RELATIVE INDEX 1.37 (< OR =4); NT-PRO BNP 39 PG/ML (<125); SODIUM LEVEL 144 MEQ/L (136-145); TROPONIN I < 0.02 NG/ML (< 0.10)
[2021-03-05 10:01] VITALS: O2SAT 89
[2021-03-05 10:31] VITALS: BP 126/68
--- NOTE | 2021-03-05 21:55 | ECGEPIP ---
[facility] - ED Test Date: 2021-03-05 Pat Name: MARIANGEL PHILLIPS Department: Room: - Gender: Female [employer] Former: JAMES : 1950 Requested By: Se Hill Order Number: [id number] Reading MD: Se Vaughn Measurements Intervals [place] Rate: 87 P: 62 OR: 212 QRS: -5 QRSD: 82 T: 46 QT: 384 QTc: 462 Interpretive Statements Sinus rhythm with 1st degree AV block Anteroseptal infarct , age undetermined SIMILAR TO 08/19/20 Electronically Signed on 03-05-2021 21:54:44 EDT by Se Vaughn
== END 2021-03-05 10:37 | disposition home or self-care (01) ==
LOC: M ED 08:29
DX: J44.9 Chronic obstructive pulmonary disease, unspecified (principal); R06.09 Other forms of dyspnea; I10 Essential (primary) hypertension; G47.33 Obstructive sleep apnea (adult) (pediatric); E66.9 Obesity, unspecified; Z86.14 Personal history of Methicillin resistant Staphylococcus aureus infection; Z79.899 Other long term (current) drug therapy; Z79.82 Long term (current) use of aspirin; Z88.0 Allergy status to penicillin; Z88.1 Allergy status to other antibiotic agents; Z88.5 Allergy status to narcotic agent; Z88.8 Allergy status to other drugs, medicaments and biological substances; Z91.041 Radiographic dye allergy status; F17.210 Nicotine dependence, cigarettes, uncomplicated

== ENCOUNTER → 2021-07-16 | Outpatient (CLI) | payer MEDICARE ==
--- NOTE | 2021-07-16 10:26 | REP ---
INDICATION: SMOKER COMPARISON: 11/23/2012 TECHNIQUE: Axial noncontrast images from the thoracic inlet to the upper abdomen using low-dose lung screening technique (LDCT). FINDINGS: Lung marrero are clear and without acute consolidation, suspicious nodule or mass. No effusion. No pneumothorax. Tracheobronchial tree is patent. IMPRESSION: Lung rads category 1. Management recommendations include annual low-dose CT surveillance. <Electronically signed by Sudhakar Wilcox > 07/16/21 1021
== END ==
LOC: M RAD 08:43
PROVIDERS: ATTEND Internal Medicine Pulmonary Disease
DX: F17.218 Nicotine dependence, cigarettes, with other nicotine-induced disorders (principal)

== ENCOUNTER → 2021-08-16 | Outpatient (CLI) | payer MEDICARE ==
[~2021-08-16] MED LIST changes: -MONT10TA10 PO; +MONT10TA97 PO; +TIZA10TA PO; -TIZA4TAB4 PO
== END ==
LOC: M PLAIMG 09:16
PROVIDERS: ATTEND Family Medicine
DX: R05.9 Cough, unspecified (principal)

== ENCOUNTER → 2021-11-29 | Outpatient (CLI) | payer MEDICARE ==
[~2021-11-29] MED LIST changes: -FLUC150T PO; +FLUC150T9 PO
[2021-11-29 10:59] LABS: HEMATOCRIT 49.7 % (36.0-47.0); HEMOGLOBIN 15.7 g/dl (12.0-15.5); MEAN CORPUSCULAR HEMOGLOBIN 28.4 pg (27.0-33.0); MEAN CORPUSCULAR HGB CONC 31.6 g/dl (32.0-36.5); PLATELET COUNT, AUTOMATED 245 10^3/uL (150-450); RED BLOOD COUNT 5.52 10^6/uL (4.00-5.40); WHITE BLOOD COUNT 9.8 10^3/uL (4.0-10.0)
[2021-11-29 11:20] LABS: ALT/SGPT 58 U/L (12-78); BILIRUBIN,TOTAL 0.3 MG/DL (0.2-1.0); BLOOD UREA NITROGEN 12 MG/DL (7-18); CARBON DIOXIDE LEVEL 32 MEQ/L (21-32); CHLORIDE LEVEL 105 MEQ/L (98-107); CHOLESTEROL LEVEL 187 MG/DL (<200); CHOLESTEROL RISK RATIO 4.452 (<5); CREATININE FOR GFR 0.81 MG/DL (0.55-1.30); GLOMERULAR FILTRATION RATE > 60.0 (>39); GLUCOSE, FASTING 166 MG/DL (70-100); HDL CHOLESTEROL 42 MG/DL (>40); LDL CHOLESTEROL 126 MG/DL (<100); NON-HDL-C 145 MG/DL; POTASSIUM SERUM 4.1 MEQ/L (3.5-5.1); SODIUM LEVEL 142 MEQ/L (136-145); TOTAL PROTEIN 6.2 GM/DL (6.4-8.2); TRIGLYCERIDES LEVEL 94 MG/DL (<150)
== END ==
LOC: M PLALAB 08:47
PROVIDERS: ATTEND Family Medicine
DX: I10 Essential (primary) hypertension (principal)

== ENCOUNTER → 2022-01-28 | Outpatient (CLI) | payer MEDICARE ==
[~2022-01-28] MED LIST changes: +ALBU2.5V10 INH; -ALBU83IN INH
== END ==
LOC: M WHC 11:52
PROVIDERS: ATTEND Family Medicine
DX: Z12.31 Encounter for screening mammogram for malignant neoplasm of breast (principal)

== ENCOUNTER → 2022-07-08 | Outpatient (CLI) | payer MEDICARE ==
[2022-07-08 15:54] LABS: BASO % 0.4 % (0.0-1.0); EOS # 0.2 10^3/uL (0.0-0.5); EOS % 1.8 % (0.0-3.0); HEMATOCRIT 50.4 % (36.0-47.0); HEMOGLOBIN 15.9 g/dl (12.0-15.5); LYMPH # 2.2 10^3/uL (1.5-5.0); LYMPH % 20.7 % (24.0-44.0); MEAN CORPUSCULAR HEMOGLOBIN 27.4 pg (27.0-33.0); MEAN CORPUSCULAR HGB CONC 31.5 g/dl (32.0-36.5); MEAN CORPUSCULAR VOLUME 86.7 fl (80.0-96.0); MONO # 0.8 10^3/uL (0.0-0.8); MONO % 7.2 % (2.0-8.0); NEUTROPHILS # 7.5 10^3/uL (1.5-8.5); NEUTROPHILS % 69.5 % (36.0-66.0); PLATELET COUNT, AUTOMATED 322 10^3/uL (150-450); RED BLOOD COUNT 5.81 10^6/uL (4.00-5.40); WHITE BLOOD COUNT 10.8 10^3/uL (4.0-10.0)
[2022-07-08 16:08] LABS: LIPASE 34 U/L (12-53)
[2022-07-08 16:09] LABS: AMYLASE 49 U/L (30-118)
[2022-07-08 16:10] LABS: ALBUMIN 3.1 G/DL (3.2-5.2); ALKALINE PHOSPHATASE 98 U/L (46-116); ALT/SGPT 37 U/L (7.0-40); AST/SGOT 27 U/L (<34); BILIRUBIN,TOTAL 0.5 MG/DL (0.3-1.2); BLOOD UREA NITROGEN 15 MG/DL (9-23); CALCIUM LEVEL 8.5 MG/DL (8.3-10.6); CARBON DIOXIDE LEVEL 35 MMOL/L (20-31); CHLORIDE LEVEL 102 MMOL/L (98-107); CREATININE FOR GFR 0.88 MG/DL (0.55-1.30); GLOMERULAR FILTRATION RATE > 60.0 (>39); GLUCOSE, FASTING 129 MG/DL (74-106); POTASSIUM SERUM 3.5 MMOL/L (3.5-5.1); SODIUM LEVEL 141 MMOL/L (136-145); TOTAL PROTEIN 6.5 G/DL (5.7-8.2)
== END ==
LOC: M LAB 15:23
PROVIDERS: ATTEND Family Medicine
DX: R10.11 Right upper quadrant pain (principal)

== ENCOUNTER → 2022-07-16 | Outpatient (CLI) | payer MEDICARE | LOC: M PLAIMG 11:01 | PROVIDERS: ATTEND Family Medicine | DX: R10.11 Right upper quadrant pain (principal); R10.31 Right lower quadrant pain ==

== ENCOUNTER → 2022-10-03 | Outpatient (CLI) | payer MEDICARE ==
[~2022-10-03] MED LIST changes: +NYST-38 SS; -NYST50SS SS
== END ==
LOC: M LABSMTC 11:49
PROVIDERS: ATTEND Anesthesiology
DX: Z01.812 Encounter for preprocedural laboratory examination (principal); Z20.822 Contact with and (suspected) exposure to COVID-19

== ENCOUNTER → 2022-10-08 | Day surgery (SDC) | payer MEDICARE ==
[~2022-10-08] VITALS: Ht 157.5 cm; Wt 102.9 kg
[~2022-10-08] MED LIST changes: +BSS IRRIG/VANCO(10MG)/TOBRA(5MG)/EPINEPH(1:1000-0.5CC)500ML BAG-ORONLY IR ONE; +CEFUROXIME 1MG/0.1ML INTRACAMERAL INJ As Ordered ONE; +CYCLOPENTOLATE 1% OPHTH SOLN 2ML BTL OS SCH; +LIDOCAINE 1% SDV 5ML VIAL As Ordered ONE; +LIDOCAINE 3.5 % 1ML OPHTH TOPICAL GEL OU ONE; +MIDAZOLAM INJ 2MG/2ML VIAL As Ordered ONE; +OFLOXACIN 0.3 % (OCUFLOX) OPTH SOL 5ML OS ONE; +PHENYLEPHRINE 10% OPHTH SOL 5ML OS PRN; +PHENYLEPHRINE 2.5% OPHTH SOL 2ML OS SCH; +PROBCAP17 PO; +TROPICAMIDE 1% OPHTH SOLN 15ML OS SCH; +fentaNYL 100 MCG/2 ML INJECTION As Ordered ONE
[2022-10-08 08:25] VITALS: BP 144/68
== END | disposition home or self-care (01) ==
LOC: M SDC 06:05
PROVIDERS: ATTEND Ophthalmology
DX: H25.12 Age-related nuclear cataract, left eye (principal); I25.10 Atherosclerotic heart disease of native coronary artery without angina pectoris; E78.00 Pure hypercholesterolemia, unspecified; I10 Essential (primary) hypertension; R01.1 Cardiac murmur, unspecified; I05.9 Rheumatic mitral valve disease, unspecified; K21.9 Gastro-esophageal reflux disease without esophagitis; M19.90 Unspecified osteoarthritis, unspecified site; Z99.89 Dependence on other enabling machines and devices; J45.909 Unspecified asthma, uncomplicated; J44.9 Chronic obstructive pulmonary disease, unspecified; F41.9 Anxiety disorder, unspecified; F32.A Depression, unspecified; Z99.81 Dependence on supplemental oxygen; G47.30 Sleep apnea, unspecified; F17.210 Nicotine dependence, cigarettes, uncomplicated; Z88.0 Allergy status to penicillin; Z88.1 Allergy status to other antibiotic agents; Z88.8 Allergy status to other drugs, medicaments and biological substances; Z88.5 Allergy status to narcotic agent; Z88.2 Allergy status to sulfonamides; Z79.899 Other long term (current) drug therapy; Z79.82 Long term (current) use of aspirin; Z79.51 Long term (current) use of inhaled steroids
CPT/HCPCS: 66984; J0697; J2250; J3010; V2632

== ENCOUNTER → 2022-10-21 | Outpatient (CLI) | payer MEDICARE ==
[~2022-10-21] MED LIST changes: +ALPR0.5T3 PO; -BSS IRRIG/VANCO(10MG)/TOBRA(5MG)/EPINEPH(1:1000-0.5CC)500ML BAG-ORONLY IR ONE; -CEFUROXIME 1MG/0.1ML INTRACAMERAL INJ As Ordered ONE; +CELE1CAP9 PO; -CYCLOPENTOLATE 1% OPHTH SOLN 2ML BTL OS SCH; -LIDOCAINE 1% SDV 5ML VIAL As Ordered ONE; -LIDOCAINE 3.5 % 1ML OPHTH TOPICAL GEL OU ONE; -MIDAZOLAM INJ 2MG/2ML VIAL As Ordered ONE; -OFLOXACIN 0.3 % (OCUFLOX) OPTH SOL 5ML OS ONE; +OMEP40CA5 PO; -PHENYLEPHRINE 10% OPHTH SOL 5ML OS PRN; -PHENYLEPHRINE 2.5% OPHTH SOL 2ML OS SCH; +PRE PO; +PROBIOTIC PO; -TROPICAMIDE 1% OPHTH SOLN 15ML OS SCH; -fentaNYL 100 MCG/2 ML INJECTION As Ordered ONE
== END ==
LOC: M LABSMTC 09:53
PROVIDERS: ATTEND Anesthesiology
DX: Z01.812 Encounter for preprocedural laboratory examination (principal)

== ENCOUNTER 2022-10-22 10:55 | Day surgery (SDC) | payer MEDICARE ==
[~2022-10-22] VITALS: Ht 157.5 cm; Wt 103.4 kg
[~2022-10-22 10:55] MED LIST changes: +BSS IRRIG/VANCO(10MG)/TOBRA(5MG)/EPINEPH(1:1000-0.5CC)500ML BAG-ORONLY IR ONE; +CYCLOPENTOLATE 1% OPHTH SOLN 2ML BTL OD SCH; +LIDOCAINE 1% SDV 5ML VIAL As Ordered ONE; +LIDOCAINE 3.5 % 1ML OPHTH TOPICAL GEL OU ONE; +OFLOXACIN 0.3 % (OCUFLOX) OPTH SOL 5ML OD ONE; +PHENYLEPHRINE 10% OPHTH SOL 5ML OD PRN; +PHENYLEPHRINE 2.5% OPHTH SOL 2ML OD SCH; +TROPICAMIDE 1% OPHTH SOLN 15ML OD SCH; +UNRESOLVED CLARIFICATION ENTRY XX SCH
[2022-10-22] MEDS ORDERED: MIDAZOLAM INJ 2MG/2ML VIAL As Ordered ONE (12:33)
[2022-10-22] MEDS ORDERED: fentaNYL 100 MCG/2 ML INJECTION As Ordered ONE (12:33)
[2022-10-22] MEDS ORDERED: CEFUROXIME 1MG/0.1ML INTRACAMERAL INJ As Ordered ONE (12:47)
[2022-10-22 13:00] VITALS: BP 143/77
== END 2022-10-22 13:10 | disposition home or self-care (01) ==
LOC: M SDC 10:55
PROVIDERS: ATTEND Ophthalmology
DX: H25.11 Age-related nuclear cataract, right eye (principal); I25.10 Atherosclerotic heart disease of native coronary artery without angina pectoris; I10 Essential (primary) hypertension; E78.5 Hyperlipidemia, unspecified; F32.A Depression, unspecified; F41.9 Anxiety disorder, unspecified; Z90.710 Acquired absence of both cervix and uterus; J44.9 Chronic obstructive pulmonary disease, unspecified; J45.909 Unspecified asthma, uncomplicated; F17.210 Nicotine dependence, cigarettes, uncomplicated; Z90.89 Acquired absence of other organs; G47.30 Sleep apnea, unspecified; Z88.1 Allergy status to other antibiotic agents; Z88.8 Allergy status to other drugs, medicaments and biological substances; Z88.5 Allergy status to narcotic agent; Z91.041 Radiographic dye allergy status; Z79.899 Other long term (current) drug therapy
CPT/HCPCS: 66984; J0697; J2250; J3010; V2632

== ENCOUNTER → 2022-11-25 | Outpatient (CLI) | payer MEDICARE ==
[~2022-11-25] MED LIST changes: -BSS IRRIG/VANCO(10MG)/TOBRA(5MG)/EPINEPH(1:1000-0.5CC)500ML BAG-ORONLY IR ONE; -CYCLOPENTOLATE 1% OPHTH SOLN 2ML BTL OD SCH; +FLUT50SP17; -FLUTISP; -LIDOCAINE 1% SDV 5ML VIAL As Ordered ONE; -LIDOCAINE 3.5 % 1ML OPHTH TOPICAL GEL OU ONE; -OFLOXACIN 0.3 % (OCUFLOX) OPTH SOL 5ML OD ONE; -PHENYLEPHRINE 10% OPHTH SOL 5ML OD PRN; -PHENYLEPHRINE 2.5% OPHTH SOL 2ML OD SCH; -TROPICAMIDE 1% OPHTH SOLN 15ML OD SCH; -UNRESOLVED CLARIFICATION ENTRY XX SCH
[2022-11-25 16:04] LABS: BASO % 0.3 % (0.0-1.0); EOS # 0.2 10^3/uL (0.0-0.5); EOS % 1.9 % (0.0-3.0); HEMATOCRIT 52.7 % (36.0-47.0); HEMOGLOBIN 16.8 g/dl (12.0-15.5); LYMPH # 1.7 10^3/uL (1.5-5.0); LYMPH % 16.2 % (24.0-44.0); MEAN CORPUSCULAR HEMOGLOBIN 28.1 pg (27.0-33.0); MEAN CORPUSCULAR HGB CONC 31.9 g/dl (32.0-36.5); MEAN CORPUSCULAR VOLUME 88.1 fl (80.0-96.0); MONO # 0.7 10^3/uL (0.0-0.8); MONO % 6.3 % (2.0-8.0); NEUTROPHILS % 75.1 % (36.0-66.0); PLATELET COUNT, AUTOMATED 216 10^3/uL (150-450); RED BLOOD COUNT 5.98 10^6/uL (4.00-5.40); WHITE BLOOD COUNT 10.6 10^3/uL (4.0-10.0)
[2022-11-25 16:29] LABS: ALBUMIN 3.1 G/DL (3.2-5.2); ALKALINE PHOSPHATASE 95 U/L (46-116); ALT/SGPT 24 U/L (7.0-40); AST/SGOT 21 U/L (<34); BILIRUBIN,TOTAL 0.3 MG/DL (0.3-1.2); BLOOD UREA NITROGEN 12 MG/DL (9-23); CALCIUM LEVEL 8.7 MG/DL (8.3-10.6); CARBON DIOXIDE LEVEL 33 MMOL/L (20-31); CHLORIDE LEVEL 104 MMOL/L (98-107); CHOLESTEROL LEVEL 177 MG/DL (<200); CHOLESTEROL RISK RATIO 3.84 (<5); CREATININE FOR GFR 0.76 MG/DL (0.55-1.30); GLOMERULAR FILTRATION RATE > 60.0 (>39); GLUCOSE, FASTING 142 MG/DL (74-106); LDL CHOLESTEROL 112.2 MG/DL (<100); POTASSIUM SERUM 3.6 MMOL/L (3.5-5.1); SODIUM LEVEL 143 MMOL/L (136-145); TOTAL PROTEIN 6.4 G/DL (5.7-8.2); TRIGLYCERIDES LEVEL 94 MG/DL (<150)
[2022-11-25 16:41] LABS: HEMOGLOBIN A1c 6.7 % (4.0-6.0)
[2022-11-25 16:52] LABS: MAU/CREAT RATIO 8.6 MCG/MG (0.0-30.0)
== END ==
LOC: M LAB 14:59
PROVIDERS: ATTEND Family Medicine
DX: E11.9 Type 2 diabetes mellitus without complications (principal)

== ENCOUNTER → 2023-03-31 | Outpatient (CLI) | payer MEDICARE ==
[~2023-03-31] MED LIST changes: -K-TA10TA2 PO; +POTA-165 PO
== END ==
LOC: M RAD 15:41
PROVIDERS: ATTEND Internal Medicine Pulmonary Disease
DX: Z12.2 Encounter for screening for malignant neoplasm of respiratory organs (principal); F17.218 Nicotine dependence, cigarettes, with other nicotine-induced disorders

== ENCOUNTER → 2023-08-28 | Outpatient (CLI) | payer MEDICARE ==
[~2023-08-28] MED LIST changes: +CELE0.09 PO; -CELE1CAP9 PO; -FLUT50SP17; +FLUTISP
== END ==
LOC: M RAD 10:38
PROVIDERS: ATTEND Family Medicine
DX: J44.1 Chronic obstructive pulmonary disease with (acute) exacerbation (principal); R91.8 Other nonspecific abnormal finding of lung field

== ENCOUNTER → 2023-11-27 | Outpatient (CLI) | payer MEDICARE ==
[2023-11-27 11:00] LABS: BASO % 0.3 % (0.0-1.0); EOS # 0.4 10^3/uL (0.0-0.5); HEMATOCRIT 49.7 % (36.0-47.0); HEMOGLOBIN 15.7 g/dl (12.0-15.5); LYMPH # 1.5 10^3/uL (1.5-5.0); LYMPH % 12.3 % (24.0-44.0); MEAN CORPUSCULAR HEMOGLOBIN 28.2 pg (27.0-33.0); MEAN CORPUSCULAR HGB CONC 31.6 g/dl (32.0-36.5); MEAN CORPUSCULAR VOLUME 89.2 fl (80.0-96.0); MONO % 8.2 % (2.0-8.0); NEUTROPHILS # 9.1 10^3/uL (1.5-8.5); NEUTROPHILS % 75.9 % (36.0-66.0); PLATELET COUNT, AUTOMATED 193 10^3/uL (150-450); RED BLOOD COUNT 5.57 10^6/uL (4.00-5.40)
[2023-11-27 11:22] LABS: HEMOGLOBIN A1c 7.1 % (4.0-6.0)
[2023-11-27 11:26] LABS: ALKALINE PHOSPHATASE 84 U/L (46-116); ALT/SGPT 26 U/L (7.0-40); AST/SGOT 17 U/L (<34); BILIRUBIN,TOTAL 0.8 MG/DL (0.3-1.2); BLOOD UREA NITROGEN 17 MG/DL (9-23); CALCIUM LEVEL 9.1 MG/DL (8.3-10.6); CARBON DIOXIDE LEVEL 34 MMOL/L (20-31); CHLORIDE LEVEL 103 MMOL/L (98-107); CHOLESTEROL LEVEL 143 MG/DL (<200); CHOLESTEROL RISK RATIO 2.78 (<5); CREATININE FOR GFR 0.82 MG/DL (0.55-1.30); GLOMERULAR FILTRATION RATE > 60.0 (>39); GLUCOSE, FASTING 152 MG/DL (74-106); HDL CHOLESTEROL 51.4 MG/DL (>40); LDL CHOLESTEROL 76.6 MG/DL (<100); NON-HDL-C 91.6 MG/DL; POTASSIUM SERUM 3.9 MMOL/L (3.5-5.1); SODIUM LEVEL 142 MMOL/L (136-145); TOTAL PROTEIN 5.9 G/DL (5.7-8.2); TRIGLYCERIDES LEVEL 75 MG/DL (<150)
== END ==
LOC: M LAB 09:39
PROVIDERS: ATTEND Family Medicine
DX: E11.9 Type 2 diabetes mellitus without complications (principal)

== ENCOUNTER → 2024-02-05 | Outpatient (REF) | payer MEDICARE ==
[2024-02-05 13:45] LABS: APPEARANCE, URINE CLOUDY (CLEAR); BACTERIA, URINE AUTO 1+ (NEGATIVE); BILIRUBIN, URINE AUTO NEGATIVE (NEGATIVE); BLOOD, URINE BLOOD NEGATIVE (NEGATIVE); COLOR, URINE AMBER (YELLOW); GLUCOSE, URINE (UA) AUTO NEGATIVE (NEGATIVE); KETONE, URINE AUTO NEGATIVE (NEGATIVE); LEUKOCYTE ESTERASE, URINE AUTO 3+ (NEGATIVE); MUCUS, URINE SMALL (NEGATIVE); NITRITE, URINE AUTO NEGATIVE (NEGATIVE); PROTEIN, URINE AUTO 1+ mg/dL (NEGATIVE); RBC, URINE AUTO 6 /HPF (0-3); SPECIFIC GRAVITY URINE AUTO 1.024 (1.002-1.035); SQUAMOUS EPITHELIAL CELL UR AU 7 /HPF (0-6); WBC, URINE AUTO TNTC /HPF (0-3)
== END ==
LOC: M LAB REF 12:22
PROVIDERS: ATTEND Physician Assistant
DX: N39.0 Urinary tract infection, site not specified (principal)

== ENCOUNTER → 2024-03-01 | Outpatient (REF) | payer MEDICARE | LOC: M SFHCDERM 12:27 | PROVIDERS: ATTEND Physician Assistant | DX: L72.0 Epidermal cyst (principal); L57.8 Other skin changes due to chronic exposure to nonionizing radiation ==

== ENCOUNTER → 2024-06-02 | Outpatient (CLI) | payer MEDICARE | LOC: M RAD 06:34 | PROVIDERS: ATTEND Internal Medicine Pulmonary Disease | DX: Z12.2 Encounter for screening for malignant neoplasm of respiratory organs (principal); R91.1 Solitary pulmonary nodule; I25.10 Atherosclerotic heart disease of native coronary artery without angina pectoris; F17.218 Nicotine dependence, cigarettes, with other nicotine-induced disorders ==

== ENCOUNTER → 2024-06-24 | Outpatient (CLI) | payer MEDICARE ==
[2024-06-24 11:20] LABS: ALBUMIN 3.2 G/DL (3.2-5.2); ALKALINE PHOSPHATASE 71 U/L (35-104); ALT/SGPT 15 U/L (7.0-40); AST/SGOT 18 U/L (<34); BILIRUBIN,TOTAL 0.4 MG/DL (0.3-1.2); BLOOD UREA NITROGEN 15 MG/DL (9-23); CALCIUM LEVEL 9.2 MG/DL (8.3-10.6); CARBON DIOXIDE LEVEL 31 MMOL/L (20-31); CHLORIDE LEVEL 105 MMOL/L (98-107); CREATININE FOR GFR 0.89 MG/DL (0.55-1.30); GLOMERULAR FILTRATION RATE > 60.0 (>39); GLUCOSE, FASTING 83 MG/DL (74-106); SODIUM LEVEL 144 MMOL/L (136-145); TOTAL PROTEIN 6.7 G/DL (5.7-8.2)
== END ==
LOC: M LAB 09:18
PROVIDERS: ATTEND Family Medicine
DX: I11.9 Hypertensive heart disease without heart failure (principal)

== ENCOUNTER → 2025-02-20 | Outpatient (CLI) | payer MEDICARE ==
[2025-02-20 11:49] LABS: BASO # 0.0 10^3/uL (0.0-0.2); BASO % 0.3 % (0.0-1.0); EOS # 0.2 10^3/uL (0.0-0.5); EOS % 2.0 % (0.0-3.0); LYMPH # 1.5 10^3/uL (1.5-5.0); LYMPH % 16.3 % (24.0-44.0); MONO # 0.5 10^3/uL (0.0-0.8); MONO % 5.8 % (2.0-8.0); NEUTROPHILS # 6.9 10^3/uL (1.5-8.5); NEUTROPHILS % 75.4 % (36.0-66.0); PLATELET COUNT, AUTOMATED 275 10^3/uL (150-450)
[2025-02-20 12:07] LABS: ESTIMATED AVERAGE GLUCOSE 111.0 MG/DL (60-110)
[2025-02-20 12:13] LABS: CREATININE, URINE 98.0 MG/DL; MALB URINE SIEMENS < 3.0 MG/L
[2025-02-20 12:14] LABS: ALT/SGPT 21.0 U/L (7.0-40); AST/SGOT 27.0 U/L (<34); CALCIUM LEVEL 9.0 MG/DL (8.3-10.6); CARBON DIOXIDE LEVEL 33.0 MMOL/L (20-31); CHLORIDE LEVEL 103.0 MMOL/L (98-107); CHOLESTEROL LEVEL 134.0 MG/DL (<200); CHOLESTEROL RISK RATIO 2.88 (<5); CREATININE FOR GFR 0.84 MG/DL (0.55-1.30); GLOMERULAR FILTRATION RATE 72.0 (>39); LDL CHOLESTEROL 73.5 MG/DL (<100); NON-HDL-C 87.5 MG/DL; POTASSIUM SERUM 3.1 MMOL/L (3.5-5.1); SODIUM LEVEL 147.0 MMOL/L (136-145); TRIGLYCERIDES LEVEL 70.0 MG/DL (<150)
== END ==
LOC: M LAB 10:23
PROVIDERS: ATTEND Family Medicine
DX: E11.9 Type 2 diabetes mellitus without complications (principal)

== ENCOUNTER → 2025-03-07 | Outpatient (CLI) | payer MEDICARE | LOC: M SLEEP HO 09:40 | PROVIDERS: ATTEND Internal Medicine Pulmonary Disease | DX: G47.33 Obstructive sleep apnea (adult) (pediatric) (principal) ==

== ENCOUNTER → 2025-06-16 | Outpatient (CLI) | payer MEDICARE ==
[2025-06-16 12:48] LABS: BASO # 0.0 10^3/uL (0.0-0.2); BASO % 0.5 % (0.0-1.0); EOS # 0.1 10^3/uL (0.0-0.5); EOS % 1.8 % (0.0-3.0); LYMPH # 1.6 10^3/uL (1.5-5.0); LYMPH % 24.5 % (24.0-44.0); MONO # 0.5 10^3/uL (0.0-0.8); MONO % 7.4 % (2.0-8.0); NEUTROPHILS # 4.4 10^3/uL (1.5-8.5); NEUTROPHILS % 65.6 % (36.0-66.0); PLATELET COUNT, AUTOMATED 201 10^3/uL (150-450)
[2025-06-16 13:12] LABS: CREATININE, URINE 43.9 MG/DL
[2025-06-16 13:13] LABS: MALB URINE SIEMENS < 3.0 MG/L
[2025-06-16 13:14] LABS: ALT/SGPT 17.0 U/L (7.0-40); AST/SGOT 21.0 U/L (<34); CALCIUM LEVEL 8.6 MG/DL (8.3-10.6); CARBON DIOXIDE LEVEL 34.0 MMOL/L (20-31); CHLORIDE LEVEL 105.0 MMOL/L (98-107); CHOLESTEROL LEVEL 183.0 MG/DL (<200); CHOLESTEROL RISK RATIO 3.4 (<5); CREATININE FOR GFR 0.83 MG/DL (0.55-1.30); GLOMERULAR FILTRATION RATE 73.0 (>39); LDL CHOLESTEROL 117.4 MG/DL (<100); NON-HDL-C 129.2 MG/DL; POTASSIUM SERUM 3.8 MMOL/L (3.5-5.1); SODIUM LEVEL 145.0 MMOL/L (136-145); TRIGLYCERIDES LEVEL 59.0 MG/DL (<150)
[2025-06-16 13:33] LABS: ESTIMATED AVERAGE GLUCOSE 108.0 MG/DL (60-110)
== END ==
LOC: M LAB 11:46
PROVIDERS: ATTEND Family Medicine
DX: E11.9 Type 2 diabetes mellitus without complications (principal)

== ENCOUNTER → 2025-06-27 | Outpatient (CLI) | payer MEDICARE | LOC: M RAD 11:37 | PROVIDERS: ATTEND Family Medicine | DX: J44.9 Chronic obstructive pulmonary disease, unspecified (principal) ==